=== PATIENT | male | born 1950 | race Caucasian/White ===

== ENCOUNTER 2021-09-10 12:13 | Inpatient (IN) | payer MEDICARE, OTHER ==
--- NOTE | 2021-09-10 12:31 | ED ---
General Adult HPI - General Chief complaint: Shortness of Breath Stated complaint: Difficulty Breathing Source: patient, EMS Mode of arrival: EMS Limitations: no limitations - History of Present Illness Initial comments: Dictation was produced using [employer] dictation software. please excuse any grammatical, word or spelling errors. Chief Complaint: 70-year-old male past medical history of schizophrenia brought in from assisted living facility for fever, shortness of breath and cough History of Present Illness: Is 70-year-old male brought in by EMS from assisted living facility for fever. Patient has history of mental delay. He is a limited historian. Patient currently resident one of the local assisted living facilities. Allegedly patient was brought here for evaluation of cough, dyspnea and fever. Allegedly had high temperatures at the system living facility. EMS was called patient is brought to the ER. EMS states that patient's temperature is 99.7. Patient was not showing any signs of respiratory distress. He had his COVID-19 booster yesterday. Allegedly started having fevers today. Patient hasn't had a cough for approximately one month. Denies any sore throat. Patient has no complaints at this time. Does not feel like he has any fevers. Since that his cough is chronic and nonproductive The ROS documented in this emergency department record has been reviewed and confirmed by me. Those systems with pertinent positive or negative responses have been documented in the HPI. All other systems are other negative and/or n oncontributory. PHYSICAL EXAM: General Impression: Alert and oriented x3, not in acute distress HEENT: Normocephalic atraumatic, extra-ocular movements intact, pupils equal and reactive to light bilaterally, mucous membranes moist. Cardiovascular: Heart regular rate and rhythm Chest: Able to complete full sentences, no retractions, no tachypnea Abdomen: abdomen soft, non-tender, non-distended, no organomegaly Musculoskeletal: Pulses present and equal in all extremities, no peripheral edema Motor: no focal deficits noted Neurological: CN II-XII grossly intact, no focal motor or sensory deficits noted Skin: Intact with no visualized rashes Psych: Normal affect and mood ED course: 70-year-old male presents to the emergency department for fever and alleged respiratory symptoms. Patient's old. At the bedside signs upon arrival shows temperature 102.7, heart rate of 114 and O2 saturation 90% on room air. EKG interpretation: Ventricular rate 99, sinus rhythm,. Interval 165, QS 84, QTC 374. No LA prolongation, no QTC prolongation, no ST or T-wave changes noted. Overall, this EKG is unremarkable Laboratory evaluation obtained. Mild leukocytosis 12.1. Macrocytosis. Mild anemia of 12.6. Coag panel is unremarkable. Metabolic panel is within acceptable limits. Calcium level 8.0. 4 panel viral PCR is negative. Chest x- ray shows left lower lobe pneumonia. Patient prescription 65 score is 1. Patient reevaluated at bedside at 2:15 PM found to be stable medical condition. Patient given dose of ceftriaxone and azithromycin. Ambulatory pulse ox dropped to 90% he did appear to be dyspneic. Given patient's age and comorbidities patient will be admitted to observation for further medical monitoring. Patient be admitted to [facility]. - Related Data Home Medications Medication Instructions Recorded Confirmed ALPRAZolam [Xanax] 1 mg PO BID@08,199909/10/21 09/10/21 Ascorbic Acid [Vitamin C] 1,000 mg PO DAILY@79909/10/21 09/10/21 Cyanocobalamin (Vitamin B-12) 1,000 mcg PO DAILY@79909/10/21 09/10/21 [Vitamin B-12] Ergocalciferol [Vitamin D2 (1250 1,250 mcg PO FR 09/10/21 09/10/21 Mcg = 85084 Iu)] Folic Acid 1 mg PO DAILY@79909/10/21 09/10/21 Ibuprofen [Motrin] 800 mg PO Q6H PRN 09/10/21 09/10/21 Ipratropium [place] 0.06%Nasal 2 spray EA NOSTRIL QID PRN 09/10/21 09/10/21 [Atrovent Nasal 0.06%] LORazepam [Ativan] 1 mg PO TID PRN 09/10/21 09/10/21 Loratadine [Claritin] 10 mg PO DAILY@79909/10/21 09/10/21 Metoprolol Tartrate [Lopressor] 50 mg PO BID@0800,199909/10/21 09/10/21 QUEtiapine [SEROquel] 100 mg PO DAILY@79909/10/21 09/10/21 Rosuvastatin Calcium [Crestor] 5 mg PO HS@199909/10/21 09/10/21 Sertraline [Zoloft] 25 mg PO DAILY@0809/10/21 09/10/21 Sertraline [Zoloft] 50 mg PO DAILY 09/10/21 09/10/21 Zinc 50 mg PO DAILY@0809/10/21 09/10/21 tiaGABine HCL [Tiagabine HCl] 2 mg PO BID@799,199909/10/21 09/10/21 Allergies Allergy/AdvReac Type Severity Reaction Status Date / Time No Known Allergies Allergy Verified 09/10/21 13:47 Review of Systems ROS Statement: Those systems with pertinent positive or pertinent negative responses have been documented in the HPI. ROS Other: All systems not noted in ROS Statement are negative. Past Medical History Past Medical History: Coronary Artery Disease (CAD), COPD, Hypertension Additional Past Medical History / Comment(s): gastritis History of Any Multi-Drug Resistant Organisms: None Reported Past Surgical History: No Surgical Hx Reported Past Psychological History: Bipolar, Schizophrenia Smoking Status: Current every day smoker Past Alcohol Use History: None Reported Past Drug Use History: None Reported General Exam Limitations: no limitations Course Vital Signs 09/10/21 09/10/21 09/10/21 12:15 12:28 13:19 Temperature 102.7 F H Pulse Rate 114 H Respiratory 16 15 Rate Blood Pressure 117/65 O2 Sat by Pulse 92 L 95 Oximetry 09/10/21 09/10/21 13:55 14:00 Temperature 98.3 F Pulse Rate 90 Respiratory 16 Rate Blood Pressure 132/69 O2 Sat by Pulse 95 90 L Oximetry Medical Decision Making - Lab Data Result diagrams: 09/10/21 12:52 09/10/21 12:52 Lab Results 09/10/21 09/10/21 09/10/21 Range/Units 12:37 12:52 12:52 WBC 12.1 H (3.8-10.6) k/uL RBC 3.76 L (4.30-5.90) m/uL Hgb 12.6 L (13.0-17.5) gm/dL Hct 38.5 L (39.0-53.0) % MCV 102.4 H (80.0-100.0) fL MCH 33.6 (25.0-35.0) pg MCHC 32.9 (31.0-37.0) g/dL RDW 12.4 (11.5-15.5) % Plt Count 187 (150-450) k/uL MPV 9.8 Neutrophils % 83 % Lymphocytes % 8 % Monocytes % 7 % Eosinophils % 1 % Basophils % 1 % Neutrophils # 10.0 H (1.3-7.7) k/uL Lymphocytes # 0.9 L (1.0-4.8) k/uL Monocytes # 0.8 (0-1.0) k/uL Eosinophils # 0.1 (0-0.7) k/uL Basophils # 0.1 (0-0.2) k/uL PT 11.2 (9.0-12.0) sec INR 1.0 (<1.2) APTT 20.7 L (22.0-30.0) sec Sodium (137-145) mmol/L Potassium (3.5-5.1) mmol/L Chloride (98-107) mmol/L Carbon Dioxide (22-30) mmol/L Anion Gap mmol/L BUN (9-20) mg/dL Creatinine (0.66-1.25) mg/dL Est GFR (CKD-EPI)AfAm (>60 ml/min/1.73 sqM) Est GFR (CKD-EPI)NonAf (>60 ml/min/1.73 sqM) Glucose (74-99) mg/dL Plasma Lactic Acid Jake (0.7-2.0) mmol/L Calcium (8.4-10.2) mg/dL Influenza Type A (PCR) Not Detected (Not Detectd) Influenza Type B (PCR) Not Detected (Not Detectd) RSV (PCR) Not Detected (Not Detectd) SARS-CoV-2 (PCR) Not Detected (Not Detectd) 09/10/21 09/10/21 Range/Units 12:52 12:52 WBC (3.8-10.6) k/uL RBC (4.30-5.90) m/uL Hgb (13.0-17.5) gm/dL Hct (39.0-53.0) % MCV (80.0-100.0) fL MCH (25.0-35.0) pg MCHC (31.0-37.0) g/dL RDW (11.5-15.5) % Plt Count (150-450) k/uL MPV Neutrophils % % Lymphocytes % % Monocytes % % Eosinophils % % Basophils % % Neutrophils # (1.3-7.7) k/uL Lymphocytes # (1.0-4.8) k/uL Monocytes # (0-1.0) k/uL Eosinophils # (0-0.7) k/uL Basophils # (0-0.2) k/uL PT (9.0-12.0) sec INR (<1.2) APTT (22.0-30.0) sec Sodium 132 L (137-145) mmol/L Potassium 4.7 (3.5-5.1) mmol/L Chloride 103 (98-107) mmol/L Carbon Dioxide 25 (22-30) mmol/L Anion Gap 4 mmol/L BUN 14 (9-20) mg/dL Creatinine 0.77 (0.66-1.25) mg/dL Est GFR (CKD-EPI)AfAm >90 (>60 ml/min/1.73 sqM) Est GFR (CKD-EPI)NonAf >90 (>60 ml/min/1.73 sqM) Glucose 119 H (74-99) mg/dL Plasma Lactic Acid Jake 0.7 (0.7-2.0) mmol/L Calcium 8.0 L (8.4-10.2) mg/dL Influenza Type A (PCR) (Not Detectd) Influenza Type B (PCR) (Not Detectd) RSV (PCR) (Not Detectd) SARS-CoV-2 (PCR) (Not Detectd) Disposition Clinical Impression: Pneumonia Disposition: ADMITTED IP TO THIS HOSP Condition: Fair Referrals: Job Wiseman MD [Primary Care Provider] - 1-2 days Decision Time: 14:47
[2021-09-10] MEDS ORDERED: ACETAMINOPHEN TAB 500 MG TAB PO STA (12:34)
[2021-09-10 13:07] LABS: Basophils # (A) 0.1 k/uL (0-0.2); Basophils % (A) 1 %; Eosinophils # (A) 0.1 k/uL (0-0.7); Eosinophils % (A) 1 %; HCT 38.5 % (39.0-53.0); HGB 12.6 gm/dL (13.0-17.5); Lymphocytes # (A) 0.9 k/uL (1.0-4.8); Lymphocytes % (A) 8 %; MCH 33.6 pg (25.0-35.0); MCHC 32.9 g/dL (31.0-37.0); MCV 102.4 fL (80.0-100.0); Mean Platelet Volume 9.8; Monocytes # (A) 0.8 k/uL (0-1.0); Monocytes % (A) 7 %; Neutrophils % (A) 83 %; Platelet Count 187 k/uL (150-450); RBC 3.76 m/uL (4.30-5.90); RDW 12.4 % (11.5-15.5); WBC 12.1 k/uL (3.8-10.6)
[2021-09-10 13:12] LABS: African American GFR (CKD) >90 (>60 ml/min/1.73 sqM); Anion Gap 4 mmol/L; Blood Urea Nitrogen 14 mg/dL (9-20); Carbon Dioxide 25 mmol/L (22-30); Chloride 103 mmol/L (98-107); Glucose 119 mg/dL (74-99); Non-African American GFR(CKD) >90 (>60 ml/min/1.73 sqM); Potassium 4.7 mmol/L (3.5-5.1); Sodium 132 mmol/L (137-145)
[2021-09-10 13:18] LABS: Prothrombin Time 11.2 sec (9.0-12.0)
[2021-09-10 13:39] LABS: Partial Thromboplastin Time 20.7 sec (22.0-30.0)
--- NOTE | 2021-09-10 14:09 | XR ---
EXAMINATION TYPE: XR chest 2V DATE OF EXAM: 09/10/2021 COMPARISON: NONE HISTORY: Fever TECHNIQUE: Frontal and lateral views of the chest are obtained. FINDINGS: Heterogeneous patchy opacities are seen in the left mid and lower lung zones with possible congested pulmonary vasculature, please correlate clinically. This could be related to left lower lobe pneumoni a. Follow-up to complete resolution in 6-8 weeks is advised. Grossly unremarkable remainder of the lungs. No sizable pleural effusion or definite pneumothorax. No gross cardiomegaly. Degenerative changes of the thoracolumbar junction. IMPRESSION: Suspected left lower lobe pneumonia as described above, for clinical correlation and fol low-up to complete resolution after appropriate treatment in 6-8 weeks.
[2021-09-10] MEDS ORDERED: cefTRIAXone IN SWFI 1,000 MG/10 ML SYRINGE IVP STA (14:10)
[2021-09-10] MEDS ORDERED: AZITHROMYCIN 500 MG in SODIUM CHLORIDE 0.9% 250 ML IVPB STA (14:10)
[2021-09-10] MEDS ORDERED: ACETAMINOPHEN TAB 325 MG TAB PO PRN (14:44)
[2021-09-10] MEDS ORDERED: NALOXONE 0.4 MG/ML 1 ML VIAL IV PRN (14:44)
[2021-09-10] MEDS: SODIUM CHLORIDE 0.9% 1,000 ML IV SCH (14:53)
[2021-09-10] MEDS ORDERED: LORazepam 1 MG TAB PO PRN (18:27)
--- NOTE | 2021-09-10 18:38 | P.HPIM ---
History of Present Illness H&P Date: 09/10/21 History of Presenting Illness: Patient is a very pleasant 70-year-old male with a past medical history of CAD, hypertension, hyperlipidemia, nicotine dependence, bipolar disorder and schizophrenia who resides at [facility]. He presented to the emergency department with a chief complaint of shortness of breath and cough. Patient reports he has had a cough and shortness of breath over the past 3 or 4 days. He reports that he was taken for his COVID-19 booster yesterday and today developed a fever and chills in addition to the previously experienced cough and shortness of breath so he was sent to the emergency department for evaluation. Patient denies having any headache, lightheadedness, dizziness, chest pain, palpitations, nausea, vomiting, abdominal pain, or experiencing any numbness/tingling/weakness in his extremities. Patient underwent full evaluation in the emergency department. He was found to have leukocytosis with WBC count of 12.1 and mild hyponatremia with sodium of 132 labs otherwise showing no significant abnormalities. RSV, Covid PCR, influenza A, and influenza B all negative. EKG completed revealing normal sinus rhythm at 99 bpm with no noted T-wave or ST abnormalities. Chest x-ray revealing left lower lobe pneumonia. Patient started on azithromycin and Rocephin and admitted under our services for observation. Review of systems: Pertinent positives and negatives as discussed in HPI, a complete review of systems was performed and all other systems are negative. Physical exam: Vital signs reviewed and stable. General: Nontoxic, no distress and appears stated age. Derm: Skin warm and dry, normal coloration for ethnicity. Head: Atraumatic, normocephalic and symmetric. Eyes: EOMs intact, no lid lag, and anicteric sclera Mouth: no lip lesions, mucus membranes moist Cardiovascular: regular rate and rhythm with normal S1S2, systolic murmur, positive posterior tibial pulses bilaterally, and cap refill < 2 seconds. Lungs: Respirations even, regular, and unlabored. lungs with diffuse rhonchi bilaterally . No wheezing, and no accessory muscle usage. Abdominal: soft, nontender to palpation, no guarding, no appreciable organomegaly Ext: ROM intact. No gross muscle atrophy, no edema, no contractures Neuro: Speech clear, face symmetrical and CN II-XII grossly intact with no noted focal neuro deficits Psych: Alert and oriented to person, place, time, and situation. Appropriate and pleasant affect. Assessment and Plan of Care: Left lower lobe pneumonia -Oxygenation to be administered and titrated as needed to maintain SPO2 equal to or greater than 92% -Telemetry monitoring. -Monitor Pulse-oximetry -Duonebs as needed for SOB and/or wheezing -Incentive Spirometry -Steroids: Prednisone -Antibiotics: Rocephin and Zithromax -Symptomatic care with Tylenol as needed for mild pain/fever Hypertension -Monitor vital signs and continue daily medication regimen with metoprolol. Hyperlipidemia -Continue daily medication regimen with rosuvastatin Bipolar disorder and schizophrenia -Continue daily medication regimen. The patient is admitted with an anticipated less than 2 midnight stay for evaluation of left lower lobe pneumonia Surrogate decision-maker: Court-appointed guardian CODE STATUS: Full code DVT prophylaxis: Heparin Discussed with: patient and RN Anticipated discharge date: Likely tomorrow morning Anticipated discharge place: Home A total of 40 minutes was spent on the care of this complex patient more than 50% of the time was spent in counseling and care coordination. Past Medical History Past Medical History: Coronary Artery Disease (CAD), COPD, GERD/Reflux, Hyperlipidemia, Hypertension, Seizure Disorder Additional Past Medical History / Comment(s): Mental delay, last seizure greater than 6 yrs ago. History of Any Multi-Drug Resistant Organisms: None Reported Past Surgical History: Unable to Obtain Past Anesthesia/Blood Transfusion Reactions: Unable to Obtain Smoking Status: Current every day smoker - Past Family History Father History Unknown: Yes Mother History Unknown: Yes Medications and Allergies Home Medications Medication Instructions Recorded Confirmed Type ALPRAZolam [Xanax] 1 mg PO BID@799,199909/10/21 09/10/21 History Ascorbic Acid [Vitamin C] 1,000 mg PO DAILY@79909/10/21 09/10/21 History Cyanocobalamin (Vitamin B-12) 1,000 mcg PO DAILY@79909/10/21 09/10/21 History [Vitamin B-12] Ergocalciferol [Vitamin D2 (1250 1,250 mcg PO FR 09/10/21 09/10/21 History Mcg = 63220 Iu)] Folic Acid 1 mg PO DAILY@79909/10/21 09/10/21 History Ibuprofen [Motrin] 800 mg PO Q6H PRN 09/10/21 09/10/21 History Ipratropium [place] 0.06%Nasal 2 spray EA NOSTRIL QID PRN 09/10/21 09/10/21 History [Atrovent Nasal 0.06%] LORazepam [Ativan] 1 mg PO TID PRN 09/10/21 09/10/21 History Loratadine [Claritin] 10 mg PO DAILY@0800 09/10/21 09/10/21 History Metoprolol Tartrate [Lopressor] 50 mg PO BID@799,199909/10/21 09/10/21 History QUEtiapine [SEROquel] 100 mg PO DAILY@79909/10/21 09/10/21 History Rosuvastatin Calcium [Crestor] 5 mg PO HS@199909/10/21 09/10/21 History Sertraline [Zoloft] 25 mg PO DAILY@0809/10/21 09/10/21 History Sertraline [Zoloft] 50 mg PO DAILY 09/10/21 09/10/21 History Zinc 50 mg PO DAILY@0809/10/21 09/10/21 History tiaGABine HCL [Tiagabine HCl] 2 mg PO BID@799,199909/10/21 09/10/21 History Allergies Allergy/AdvReac Type Severity Reaction Status Date / Time No Known Allergies Allergy Verified 09/10/21 13:47 Physical Exam Vitals: Vital Signs Temp Pulse Resp BP Pulse Ox 09/10/21 16:00 78 16 136/87 96 09/10/21 14:00 90 L 09/10/21 13:55 98.3 F 90 16 132/69 95 09/10/21 13:19 95 09/10/21 12:28 15 09/10/21 12:15 102.7 F H 114 H 16 117/65 92 L Intake and Output 09/10/21 09/10/21 09/10/21 06:59 14:59 22:59 Other: Weight 104.326 kg 104.326 kg Results CBC & Chem 7: 09/10/21 12:52 09/10/21 12:52 Labs: Abnormal Lab Results - Last 24 Hours (Table) 09/10/21 09/10/21 09/10/21 Range/Units 12:52 12:52 12:52 WBC 12.1 H (3.8-10.6) k/uL RBC 3.76 L (4.30-5.90) m/uL Hgb 12.6 L (13.0-17.5) gm/dL Hct 38.5 L (39.0-53.0) % MCV 102.4 H (80.0-100.0) fL Neutrophils # 10.0 H (1.3-7.7) k/uL Lymphocytes # 0.9 L (1.0-4.8) k/uL APTT 20.7 L (22.0-30.0) sec Sodium 132 L (137-145) mmol/L Glucose 119 H (74-99) mg/dL Calcium 8.0 L (8.4-10.2) mg/dL Thrombosis Risk Factor Assmnt - Choose All That Apply Any of the Below Risk Factors Present?: Yes Each Factor Represents 1 point: Abnormal pulmonary function (COPD), Obesity (BMI >25), Serious lung disease incl. pneumonia (< 1month) Other Risk Factors: Yes Each Risk Factor Represents 2 Points: Age 61-74 years Other congenital or acquired thrombophilia - If yes, enter type in comment: No Thrombosis Risk Factor Assessment Total Risk Factor Score: 5 Thrombosis Risk Factor Assessment Level: High Risk
[2021-09-10] MEDS: predniSONE 50 MG TAB PO SCH (20:12)
[2021-09-10] MEDS: ATORVASTATIN 10 MG TAB PO SCH (20:12)
[2021-09-10] MEDS: ALPRAZolam 1 MG TAB PO SCH (20:12)
[2021-09-10] MEDS: METOPROLOL TARTRATE 50 MG TAB PO SCH (20:12)
[2021-09-10] MEDS: GABITRIL 4 MG PO SCH (20:14)
[2021-09-11] MEDS: HEPARIN SODIUM,PORCINE/PF 5,000 UNIT/0.5 ML SYRINGE SQ SCH ×4 (01:06→23:35)
[2021-09-11] MEDS: ZINC SULFATE 220 MG CAP PO SCH (07:44)
[2021-09-11] MEDS: predniSONE 50 MG TAB PO SCH (07:44)
[2021-09-11] MEDS: ASCORBIC ACID 500 MG TAB PO SCH (07:44)
[2021-09-11] MEDS: CYANOCOBALAMIN 500 MCG TAB PO SCH (07:44)
[2021-09-11] MEDS: ALPRAZolam 1 MG TAB PO SCH ×2 (07:44→19:09)
[2021-09-11] MEDS: SERTRALINE 50 MG TAB PO SCH (07:45)
[2021-09-11] MEDS: METOPROLOL TARTRATE 50 MG TAB PO SCH ×2 (07:45→19:09)
[2021-09-11] MEDS: FOLIC ACID 1 MG TAB PO SCH (07:45)
[2021-09-11] MEDS: AZITHROMYCIN 500 MG TAB PO SCH (07:45)
[2021-09-11] MEDS: QUEtiapine 100 MG TAB PO SCH (07:46)
[2021-09-11] MEDS: GABITRIL 4 MG PO SCH ×2 (07:51→19:05)
[2021-09-11] MEDS: SERTRALINE 25 MG TAB PO SCH (11:28)
--- NOTE | 2021-09-11 12:09 | P.PN ---
Subjective Progress Note Date: 09/11/21 History of Presenting Illness: Patient is a very pleasant 70-year-old male with a past medical history of CAD, hypertension, hyperlipidemia, nicotine dependence, bipolar disorder and sc hizophrenia who resides at [facility]. He presented to the emergency department with a chief complaint of shortness of breath and cough. Patient reports he has had a cough and shortness of breath over the past 3 or 4 days. He reports that he was taken for his COVID-19 booster yesterday and today developed a fever and chills in addition to the previously experienced cough and shortness of breath so he was sent to the emergency department for evaluation. Patient denies having any headache, lightheadedness, dizziness, chest pain, palpitations, nausea, vomiting, abdominal pain, or experiencing any numbness/tingling/weakness in his extremities. Patient underwent full dano luation in the emergency department. He was found to have leukocytosis with WBC count of 12.1 and mild hyponatremia with sodium of 132 labs otherwise showing no significant abnormalities. RSV, Covid PCR, influenza A, and influenza B all negative. EKG completed revealing normal sinus rhythm at 99 bpm with no noted T-wave or ST abnormalities. Chest x-ray revealing left lower lobe pneumonia. Patient started on azithromycin and Rocephin and admitted under our services for observation. Patient monitored overnight and continued to have increased oxygen needs. Patient requiring 4 L O2 via nasal cannula to maintain SpO2 93-95%. Patient 88% on room air at rest upon evaluation this morning. Patient transitioned from observation status to inpatient at this time. Physical exam: Patient seen and fully evaluated at bedside this morning. Patient reports continued shortness of breath and cough worsens with exertion. He denies having any chills, diaphoresis, chest pain, palpitations, nausea, or vomiting. Patient to continue with IV Rocephin and oral Zithromax at this time. Secondary to persistent increased oxygenation needs patient has been requiring 4 L O2 via nasal cannula to maintain SpO2 93-95%. Upon examination this morning patient decreased down to 88% on room air. Patient to continue with oral prednisone 50 mg daily. Vital signs reviewed and stable. General: Nontoxic, no distress and appears stated age. Derm: Skin warm and dry, normal coloration for ethnicity. Head: Atraumatic, normocephalic and symmetric. Eyes: EOMs intact, no lid lag, and anicteric sclera Mouth: no lip lesions, mucus membranes moist Cardiovascular: regular rate and rhythm with normal S1S2, systolic murmur, positive posterior tibial pulses bilaterally, and cap refill < 2 seconds. Lungs: Respirations even, regular, and unlabored. lungs with diffuse rhonchi bilaterally and diminished at bases . No wheezing, and no accessory muscle usage. Abdominal: soft, nontender to palpation, no guarding, no appreciable organomegaly Ext: ROM intact. No gross muscle atrophy, no edema, no contractures Neuro: Speech clear, face symmetrical and CN II-XII grossly intact with no noted focal neuro deficits Psych: Alert and oriented to person, place, time, and situation. Appropriate and pleasant affect. Assessment and Plan of Care: Left lower lobe pneumonia Acute hypoxic respiratory failure secondary to above -Oxygenation to be administered and titrated as needed to maintain SPO2 equal to or greater than 92% -Telemetry monitoring. -Monitor Pulse-oximetry -Duonebs as needed for SOB and/or wheezing -Incentive Spirometry -Steroids: Prednisone -Antibiotics: Rocephin and Zithromax -Symptomatic care with Tylenol as needed for mild pain/fever Hypertension -Monitor vital signs and continue daily medication regimen with metoprolol. Hyperlipidemia -Continue daily medication regimen with rosuvastatin Bipolar disorder and schizophrenia -Continue daily medication regimen. Surrogate decision-maker: Court-appointed guardian CODE STATUS: Full code DVT prophylaxis: Heparin Discussed with: patient and RN Anticipated discharge date: Likely tomorrow morning Anticipated discharge place: Home A total of 40 minutes was spent on the care of this complex patient more than 50% of the time was spent in counseling and care coordination. Objective - Vital Signs Vital signs: Vital Signs Temp 98.4 F 09/11/21 07:00 Pulse 82 09/11/21 08:00 Resp 16 09/11/21 07:00 BP 137/75 09/11/21 07:00 Pulse Ox 95 09/11/21 07:00 Intake & Output 09/10/21 09/11/21 09/11/21 18:59 06:59 18:59 Intake Total 358 Balance 358 Weight 104.326 kg Intake: Oral 358 Other: # Voids 1 - Labs CBC & Chem 7: 09/10/21 12:52 09/10/21 12:52 Labs: Abnormal Lab Results - Last 24 Hours (Table) 09/10/21 09/10/21 09/10/21 Range/Units 12:52 12:52 12:52 WBC 12.1 H (3.8-10.6) k/uL RBC 3.76 L (4.30-5.90) m/uL Hgb 12.6 L (13.0-17.5) gm/dL Hct 38.5 L (39.0-53.0) % MCV 102.4 H (80.0-100.0) fL Neutrophils # 10.0 H (1.3-7.7) k/uL Lymphocytes # 0.9 L (1.0-4.8) k/uL APTT 20.7 L (22.0-30.0) sec Sodium 132 L (137-145) mmol/L Glucose 119 H (74-99) mg/dL Calcium 8.0 L (8.4-10.2) mg/dL
[2021-09-11] MEDS: SODIUM CHLORIDE 0.9% 1,000 ML IV SCH (16:36)
[2021-09-11] MEDS: ATORVASTATIN 10 MG TAB PO SCH (19:09)
[2021-09-12] MEDS ORDERED: ERGOCALCIFEROL 1,250 MCG (50,000 IU) CAPSULE PO SCH (09:00)
[2021-09-12] MEDS: ZINC SULFATE 220 MG CAP PO SCH (09:08)
[2021-09-12] MEDS: ALPRAZolam 1 MG TAB PO SCH ×2 (09:08→19:25)
[2021-09-12] MEDS: METOPROLOL TARTRATE 50 MG TAB PO SCH ×2 (09:08→19:25)
[2021-09-12] MEDS: SERTRALINE 50 MG TAB PO SCH (09:08)
[2021-09-12] MEDS: AZITHROMYCIN 500 MG TAB PO SCH (09:08)
[2021-09-12] MEDS: SERTRALINE 25 MG TAB PO SCH (09:09)
[2021-09-12] MEDS: ASCORBIC ACID 500 MG TAB PO SCH (09:09)
[2021-09-12] MEDS: predniSONE 50 MG TAB PO SCH (09:09)
[2021-09-12] MEDS: CYANOCOBALAMIN 500 MCG TAB PO SCH (09:09)
[2021-09-12] MEDS: QUEtiapine 100 MG TAB PO SCH (09:09)
[2021-09-12] MEDS: FOLIC ACID 1 MG TAB PO SCH (09:09)
[2021-09-12] MEDS: HEPARIN SODIUM,PORCINE/PF 5,000 UNIT/0.5 ML SYRINGE SQ SCH ×3 (09:17→23:50)
[2021-09-12] MEDS: GABITRIL 4 MG PO SCH ×2 (09:17→19:22)
[2021-09-12 09:20] LABS: HCT 38.4 % (39.6-50.0); HGB 12.5 g/dL (13.0-17.0); MCH 33.3 pg (27.0-32.0); MCHC 32.6 g/dL (32.0-37.0); MCV 102.4 fL (80.0-97.0); Mean Platelet Volume 11.8 fL (9.5-12.2); NRBC Per 100 WBC 0 /100 WBCS (0.0-0.0); Platelet Count 208 X 10*3/uL (140-440); RBC 3.75 X 10*6/uL (4.40-5.60); RDW 12.8 % (11.5-14.5); WBC 12.78 X 10*3/uL (4.50-10.00)
[2021-09-12 09:33] LABS: African American GFR (CKD) 112.4 (60.0-200.0); Albumin 3.5 g/dL (3.8-4.9); Albumin/Globulin Ratio 1.25 (1.60-3.17); Anion Gap 7.2 mmol/L (10.00-18.00); BUN/Creat Ratio 21.86 Ratio (12.00-20.00); Blood Urea Nitrogen 15.3 mg/dL (9.0-27.0); Calcium 8.8 mg/dL (8.7-10.3); Carbon Dioxide 27.8 mmol/L (20.0-27.5); Globulin 2.8 g/dL (1.6-3.3); Magnesium 2.4 mg/dL (1.5-2.4); Potassium 4.7 mmol/L (3.5-5.5); Total Bilirubin 0.3 mg/dL (0.30-1.20); Total Protein 6.3 g/dL (6.2-8.2)
--- NOTE | 2021-09-12 11:26 | CDI ---
Documentation Clarification Form Date: 09/12/2021 11:17:25 AM From: Dhara HurtadoSuarezJEMIMA peters, CCDS Admit Date: 09/11/2021 12:06:00 PM Patient Name: Prudencio Cancino Visit Number: [id number] Discharge Date: ATTENTION: The Clinical Documentation Specialists (CDI) and [facility] Coding Staff appreciate your assistance in clarifying documentation. Please respond to the clarification below the line at the bottom and electronically sign. The CDI & [facility] Coding staff will review the response and follow-up if needed. Please note: Queries are made part of the Legal Health Record. If you have any questions, please contact the author of this message via ITS. Dr. Noemí Renteria: The patient presented with the following clinical indicators: Fever, SOB, chills, cough, received COVID booster the day before coming to the ED. Additional clarification regarding the etiology/cause of the clinical indicators is requested. History/Risk Factors per the 09/10 H/P: Lives in Assisted Living Facility, Hypertension, Hyperlipidemia, CAD, Gastritis, Bipolar disorder, Schizophrenia Smoker. Clinical Indicators: Presented to the ED on 09/10 via EMS from [facility] with SOB, Fever, Cough. Admit with Pneumonia. Per the 09/10 H/P & 09/11 Progress Note Impression: Pneumonia, Acute Hypoxic Respiratory Failure 09/10 VS: T 102.7, P 114, R 16, BP 117/65, PO 92 RA - 2Lnc 09/10: LAB: WBC 12.1, RBC 3.76, Hgb 12.6, hct 38.5, Neutrophils 10.0, Lymph 0.9; APTT 20.7; Na 132, Glucose 119, Lactic Acid 0.7, Calcium 8.0 Influenza Type A/B: negative RSV: negative COVID-19: negative 09/10 RAD: CXR: Suspected LLL Pneumonia. Treatment 09/10: Incentive spirometry, Blood Cultures, O2, IV Azithromycin, IV Rocephin In your professional opinion, please clarify if these findings signify one of the following conditions: [ ] Sepsis POA [ ] Sepsis, Not POA [ ] Severe Sepsis with organ failure [ ] Other, please specify [ ] Unable to determine (Template Last Reviewed: June 2020) Sepsis POA MTDD
[2021-09-12] MEDS ORDERED: IPRATROPIUM-ALBUTEROL 3 ML NEB INHALATION PRN (14:48)
--- NOTE | 2021-09-12 14:52 | P.PN ---
Subjective Progress Note Date: 09/12/21 Principal diagnosis: sob Patient continues to have shortness of breath. He is currently requiring low- flow nasal cannula. He has a mild cough. No fevers or chills. Objective - Vital Signs Vital signs: Vital Signs Temp 97.5 F L 09/12/21 08:00 Pulse 68 09/12/21 08:00 Resp 20 09/12/21 08:00 BP 152/81 09/12/21 08:00 Pulse Ox 97 09/12/21 08:00 Intake & Output 09/11/21 09/12/21 09/12/21 18:59 06:59 18:59 Intake Total 698 240 Balance 698 240 Intake: Oral 698 240 Other: Voiding Method Toilet Toilet # Voids 1 1 - Exam General: Nontoxic, no distress and appears stated age. Derm: Skin warm and dry, normal coloration for ethnicity. Head: Atraumatic, normocephalic and symmetric. Eyes: EOMs intact, no lid lag, and anicteric sclera Mouth: no lip lesions, mucus membranes moist Cardiovascular: regular rate and rhythm with normal S1S2, systolic murmur, positive posterior tibial pulses bilaterally, and cap refill < 2 seconds. Lungs: Respirations even, regular, and unlabored. lungs with diffuse rhonchi bilaterally and diminished at bases . No wheezing, and no accessory muscle usage. Abdominal: soft, nontender to palpation, no guarding, no appreciable organomegaly Ext: ROM intact. No gross muscle atrophy, no edema, no contractures Neuro: Speech clear, face symmetrical and CN II-XII grossly intact with no noted focal neuro deficits Psych: Alert and oriented to person, place, time, and situation. Appropriate and pleasant affect. - Labs CBC & Chem 7: 09/12/21 06:38 09/12/21 06:38 Labs: Abnormal Lab Results - Last 24 Hours (Table) 09/12/21 09/12/21 Range/Units 06:38 06:38 WBC 12.78 H (4.50-10.00) X 10*3/uL RBC 3.75 L (4.40-5.60) X 10*6/uL Hgb 12.5 L (13.0-17.0) g/dL Hct 38.4 L (39.6-50.0) % MCV 102.4 H (80.0-97.0) fL MCH 33.3 H (27.0-32.0) pg Carbon Dioxide 27.8 H (20.0-27.5) mmol/L Anion Gap 7.20 L (10.00-18.00) mmol/L BUN/Creatinine Ratio 21.86 H (12.00-20.00) Ratio AST 219 H (14-35) U/L ALT 269 H (10-49) U/L Albumin 3.5 L (3.8-4.9) g/dL Albumin/Globulin Ratio 1.25 L (1.60-3.17) g/dL Microbiology - Last 24 Hours (Table) 09/10/21 14:00 Blood Culture - Preliminary Blood No Growth after 24 hours 09/10/21 14:15 Blood Culture - Preliminary Blood No Growth after 24 hours Assessment and Plan Plan: Left lower lobe pneumonia Acute hypoxic respiratory failure secondary to above -Oxygenation to be administered and titrated as needed to maintain SPO2 equal to or greater than 92% -Telemetry monitoring. -Monitor Pulse-oximetry -Duonebs scheduled and as needed for SOB and/or wheezing -Incentive Spirometry -Steroids: Prednisone -Antibiotics: Rocephin and Zithromax -Symptomatic care with Tylenol as needed for mild pain/fever Hypertension -Monitor vital signs and continue daily medication regimen with metoprolol. Hyperlipidemia -Continue daily medication regimen with rosuvastatin Bipolar disorder and schizophrenia -Continue daily medication regimen. General weakness -PT Surrogate decision-maker: Court-appointed guardian CODE STATUS: Full code DVT prophylaxis: Heparin Discussed with: patient and RN Anticipated discharge date: 2-[address]: Home A total of 40 minutes was spent on the care of this complex patient more than 50% of the time was spent in counseling and care coordination.
[2021-09-12] MEDS: IPRATROPIUM-ALBUTEROL 3 ML NEB INHALATION SCH ×2 (15:45→19:13)
[2021-09-12] MEDS: SODIUM CHLORIDE 0.9% 1,000 ML IV SCH (18:30)
[2021-09-12] MEDS: ATORVASTATIN 10 MG TAB PO SCH (19:25)
[2021-09-13] MEDS: IPRATROPIUM-ALBUTEROL 3 ML NEB INHALATION SCH ×4 (08:24→19:05)
[2021-09-13] MEDS: GABITRIL 4 MG PO SCH ×2 (08:48→19:18)
[2021-09-13] MEDS: ALPRAZolam 1 MG TAB PO SCH ×2 (08:51→19:18)
[2021-09-13] MEDS: HEPARIN SODIUM,PORCINE/PF 5,000 UNIT/0.5 ML SYRINGE SQ SCH ×3 (08:51→23:15)
[2021-09-13] MEDS: SERTRALINE 25 MG TAB PO SCH (08:52)
[2021-09-13] MEDS: ZINC SULFATE 220 MG CAP PO SCH (08:52)
[2021-09-13] MEDS: AZITHROMYCIN 500 MG TAB PO SCH (08:52)
[2021-09-13] MEDS: predniSONE 50 MG TAB PO SCH (08:52)
[2021-09-13] MEDS: CYANOCOBALAMIN 500 MCG TAB PO SCH (08:52)
[2021-09-13] MEDS: ASCORBIC ACID 500 MG TAB PO SCH (08:52)
[2021-09-13] MEDS: SERTRALINE 50 MG TAB PO SCH (08:52)
[2021-09-13] MEDS: METOPROLOL TARTRATE 50 MG TAB PO SCH ×2 (08:52→19:17)
[2021-09-13] MEDS: QUEtiapine 100 MG TAB PO SCH (08:52)
[2021-09-13] MEDS: FOLIC ACID 1 MG TAB PO SCH (08:52)
--- NOTE | 2021-09-13 11:40 | P.PN ---
Subjective Progress Note Date: 09/13/21 Principal diagnosis: sob Patient feeling better but still with sob and tightness. Still with cough. No fevers. No chills. Objective - Vital Signs Vital signs: Vital Signs Temp 97.7 F 09/13/21 08:00 Pulse 79 09/13/21 08:35 Resp 18 09/13/21 08:00 BP 165/79 09/13/21 08:00 Pulse Ox 96 09/13/21 08:25 Intake & Output 09/12/21 09/13/21 09/13/21 18:59 06:59 18:59 Intake Total 714 Balance 714 Intake: Oral 714 Other: Voiding Method Toilet Toilet Toilet # Voids 2 1 # Bowel Movements 1 - Exam General: Nontoxic, no distress and appears stated age. Derm: Skin warm and dry, normal coloration for ethnicity. Head: Atraumatic, normocephalic and symmetric. Eyes: EOMs intact, no lid lag, and anicteric sclera Mouth: no lip lesions, mucus membranes moist Cardiovascular: regular rate and rhythm with normal S1S2, systolic murmur, positive posterior tibial pulses bilaterally, and cap refill < 2 seconds. Lungs: Respirations even, regular, and unlabored. lungs with diffuse rhonchi bilaterally and diminished at bases . No wheezing, and no accessory muscle usage. Abdominal: soft, nontender to palpation, no guarding, no appreciable organomegaly Ext: ROM intact. No gross muscle atrophy, no edema, no contractures Neuro: Speech clear, face symmetrical and CN II-XII grossly intact with no noted focal neuro deficits Psych: Alert and oriented to person, place, time, and situation. Appropriate and pleasant affect. - Labs CBC & Chem 7: 09/12/21 06:38 09/12/21 06:38 Labs: Microbiology - Last 24 Hours (Table) 09/10/21 14:00 Blood Culture - Preliminary Blood No Growth after 48 hours 09/10/21 14:15 Blood Culture - Preliminary Blood No Growth after 48 hours Assessment and Plan Plan: Left lower lobe pneumonia Acute hypoxic respiratory failure secondary to above -Oxygenation to be administered and titrated as needed to maintain SPO2 equal to or greater than 92% -Telemetry monitoring. -Monitor Pulse-oximetry -Duonebs scheduled and as needed for SOB and/or wheezing -Incentive Spirometry -Steroids: Prednisone -Antibiotics: Rocephin and Zithromax -Symptomatic care with Tylenol as needed for mild pain/fever Hypertension -Monitor vital signs and continue daily medication regimen with metoprolol. Hyperlipidemia -Continue daily medication regimen with rosuvastatin Bipolar disorder and schizophrenia -Continue daily medication regimen. General weakness -PT Surrogate decision-maker: Court-appointed guardian CODE STATUS: Full code DVT prophylaxis: Heparin Discussed with: patient and RN Anticipated discharge date: 1-[address]: Home A total of 40 minutes was spent on the care of this complex patient more than 50% of the time was spent in counseling and care coordination.
[2021-09-13 11:44] LABS: Basophils # (A) 0.05 X 10*3/uL (0.00-0.10); Basophils % (A) 0.5 %; Eosinophils # (A) 0.02 X 10*3/uL (0.04-0.35); Eosinophils % (A) 0.2 %; HCT 39.2 % (39.6-50.0); HGB 12.4 g/dL (13.0-17.0); Immature Grans, Automated 1.3 %; Lymphocytes # (A) 2.08 X 10*3/uL (0.90-5.00); MCH 32.5 pg (27.0-32.0); MCHC 31.6 g/dL (32.0-37.0); MCV 102.9 fL (80.0-97.0); Mean Platelet Volume 11.9 fL (9.5-12.2); Monocytes # (A) 0.76 X 10*3/uL (0.20-1.00); Monocytes % (A) 7.3 %; NRBC Per 100 WBC 0 /100 WBCS (0.0-0.0); Neutrophils # (A) 7.37 X 10*3/uL (1.80-7.70); Neutrophils % (A) 70.7 %; Platelet Count 246 X 10*3/uL (140-440); RBC 3.81 X 10*6/uL (4.40-5.60); RDW 12.9 % (11.5-14.5); WBC 10.42 X 10*3/uL (4.50-10.00)
[2021-09-13 11:51] LABS: African American GFR (CKD) 112.4 (60.0-200.0); Albumin 3.5 g/dL (3.8-4.9); Albumin/Globulin Ratio 1.25 (1.60-3.17); Anion Gap 9.4 mmol/L (10.00-18.00); Blood Urea Nitrogen 14.7 mg/dL (9.0-27.0); Calcium 8.6 mg/dL (8.7-10.3); Carbon Dioxide 27.6 mmol/L (20.0-27.5); Globulin 2.8 g/dL (1.6-3.3); Potassium 4.5 mmol/L (3.5-5.5); Total Bilirubin 0.3 mg/dL (0.30-1.20); Total Protein 6.3 g/dL (6.2-8.2)
[2021-09-13 14:22] VITALS: RESP 16
[2021-09-13] MEDS: SODIUM CHLORIDE 0.9% 1,000 ML IV SCH (18:54)
[2021-09-13] MEDS: ATORVASTATIN 10 MG TAB PO SCH (19:18)
[2021-09-14] MEDS: HEPARIN SODIUM,PORCINE/PF 5,000 UNIT/0.5 ML SYRINGE SQ SCH (07:25)
[2021-09-14] MEDS: ZINC SULFATE 220 MG CAP PO SCH (07:26)
[2021-09-14] MEDS: predniSONE 50 MG TAB PO SCH (07:26)
[2021-09-14] MEDS: ALPRAZolam 1 MG TAB PO SCH (07:26)
[2021-09-14] MEDS: QUEtiapine 100 MG TAB PO SCH (07:26)
[2021-09-14] MEDS: CYANOCOBALAMIN 500 MCG TAB PO SCH (07:26)
[2021-09-14] MEDS: ASCORBIC ACID 500 MG TAB PO SCH (07:26)
[2021-09-14] MEDS: SERTRALINE 25 MG TAB PO SCH (07:26)
[2021-09-14] MEDS: FOLIC ACID 1 MG TAB PO SCH (07:26)
[2021-09-14] MEDS: METOPROLOL TARTRATE 50 MG TAB PO SCH (07:26)
[2021-09-14] MEDS: SERTRALINE 50 MG TAB PO SCH (07:26)
[2021-09-14] MEDS: GABITRIL 4 MG PO SCH (07:27)
[2021-09-14] MEDS: IPRATROPIUM-ALBUTEROL 3 ML NEB INHALATION SCH ×3 (08:20→15:06)
--- NOTE | 2021-09-14 13:54 | P.DS ---
Providers Date of admission: 09/11/21 12:06 Expected date of discharge: 09/14/21 Attending physician: Michelle Gama DO Primary care physician: Job [facility] Course: 70-year-old male with a past medical history of CAD, hypertension, hyperlipidemia, nicotine dependence, bipolar disorder and schizophrenia who resides at [facility]. He presented to the emergency department with a chief complaint of shortness of breath and cough. Patient reports he has had a cough and shortness of breath over the past 3 or 4 days. He reports that he was taken for his COVID-19 booster the day prior to admission and then developed a fever and chills in addition to the previously experienced cough and shortness of breath so he was sent to the emergency department for evaluation. Patient denies having any headache, lightheadedness, dizziness, chest pain, palpitations, nausea, vomiting, abdominal pain, or experiencing any numbness/tingling/weakness in his extremities. Patient underwent full evaluation in the emergency department. He was found to have leukocytosis with WBC count of 12.1 and mild hyponatremia with sodium of 132 labs otherwise showing no significant abnormalities. RSV, Covid PCR, influenza A, and influenza B all negative. EKG completed revealing normal sinus rhythm at 99 bpm with no noted T-wave or ST abnormalities. Chest x-ray revealing left lower lobe pneumonia. Patient started on azithromycin and Rocephin and admitted under our services. On exam he was have significant wheezing and rhonchi and due to that he was started on steroids and nebs tx. He was initially requiring O2 supplements low flow. On the day on discharge he was on RA. He is currently feeling very well. Much better, will be sent back to the detention. He will be prescribed omnicef on discharge. Time for discharge 36 min Patient Condition at Discharge: Fair Plan - Discharge Summary Discharge Rx Participant: No New Discharge Prescriptions: New methylPREDNISolone Dose Pack [Medrol Dose Pack] 4 mg PO DIRECTED #1 packet Cefdinir [Omnicef] 300 mg PO Q12HR 3 Days #6 capsule Continue Ergocalciferol [Vitamin D2 (1250 Mcg = 73458 Iu)] 1,250 mcg PO FR Cyanocobalamin (Vitamin B-12) [Vitamin B-12] 1,000 mcg PO DAILY@0800 Ascorbic Acid [Vitamin C] 1,000 mg PO DAILY@0800 Metoprolol Tartrate [Lopressor] 50 mg PO BID@ Sertraline [Zoloft] 25 mg PO DAILY@08 LORazepam [Ativan] 1 mg PO TID PRN PRN Reason: Anxiety Ibuprofen [Motrin] 800 mg PO Q6H PRN PRN Reason: Pain Folic Acid 1 mg PO DAILY@0800 ALPRAZolam [Xanax] 1 mg PO BID@799,1999 Zinc 50 mg PO DAILY@08 tiaGABine HCL [Tiagabine HCl] 2 mg PO BID@799,1999 Sertraline [Zoloft] 50 mg PO DAILY Rosuvastatin Calcium [Crestor] 5 mg PO HS@1999 QUEtiapine [SEROquel] 100 mg PO DAILY@08 Loratadine [Claritin] 10 mg PO DAILY@08 Ipratropium [place] 0.06%Nasal [Atrovent Nasal 0.06%] 2 spray EA NOSTRIL QID PRN PRN Reason: Nasal Congestion Discharge Medication List ALPRAZolam [Xanax] 1 mg PO BID@799,199909/10/21 [History] Ascorbic Acid [Vitamin C] 1,000 mg PO DAILY@79909/10/21 [History] Cyanocobalamin (Vitamin B-12) [Vitamin B-12] 1,000 mcg PO DAILY@79909/10/21 [History] Ergocalciferol [Vitamin D2 (1250 Mcg = 78962 Iu)] 1,250 mcg PO FR 09/10/21 [History] Folic Acid 1 mg PO DAILY@79909/10/21 [History] Ibuprofen [Motrin] 800 mg PO Q6H PRN 09/10/21 [History] Ipratropium [place] 0.06%Nasal [Atrovent Nasal 0.06%] 2 spray EA NOSTRIL QID PRN 09/10/21 [History] LORazepam [Ativan] 1 mg PO TID PRN 09/10/21 [History] Loratadine [Claritin] 10 mg PO DAILY@0809/10/21 [History] Metoprolol Tartrate [Lopressor] 50 mg PO BID@09/10/21 [History] QUEtiapine [SEROquel] 100 mg PO DAILY@0809/10/21 [History] Rosuvastatin Calcium [Crestor] 5 mg PO HS@199909/10/21 [History] Sertraline [Zoloft] 25 mg PO DAILY@0809/10/21 [History] Sertraline [Zoloft] 50 mg PO DAILY 09/10/21 [History] Zinc 50 mg PO DAILY@0809/10/21 [History] tiaGABine HCL [Tiagabine HCl] 2 mg PO BID@09/10/21 [History] Cefdinir [Omnicef] 300 mg PO Q12HR 3 Days #6 capsule 09/14/21 [Rx] methylPREDNISolone Dose Pack [Medrol Dose Pack] 4 mg PO DIRECTED #1 packet 09/14/21 [Rx] Follow up Appointment(s)/Referral(s): Job Wiseman MD [Primary Care Provider] - 1-2 days Activity/Diet/Wound Care/Special Instructions: [facility] phone number: [phone]
[2021-09-14 15:22] VITALS: BP 127/65; PULSE 74; TEMP 98.4
== END 2021-09-14 18:05 | disposition home or self-care (01) | DRG 871 ==
LOC: EC 12:13 → 6NMEDSUR 14:44 → OBSVTOIN 09-11 12:06 → EEVIPCON 09-11 12:06
PROVIDERS: ADMIT Internal Medicine; ATTEND Internal Medicine
DX: A41.9 Sepsis, unspecified organism (principal); J18.9 Pneumonia, unspecified organism; J96.01 Acute respiratory failure with hypoxia; J44.0 Chronic obstructive pulmonary disease with (acute) lower respiratory infection; E87.1 Hypo-osmolality and hyponatremia; I25.10 Atherosclerotic heart disease of native coronary artery without angina pectoris; F20.9 Schizophrenia, unspecified; Z20.822 Contact with and (suspected) exposure to COVID-19; F31.9 Bipolar disorder, unspecified; G40.909 Epilepsy, unspecified, not intractable, without status epilepticus; K29.70 Gastritis, unspecified, without bleeding; I10 Essential (primary) hypertension; E78.5 Hyperlipidemia, unspecified; K21.9 Gastro-esophageal reflux disease without esophagitis; F17.210 Nicotine dependence, cigarettes, uncomplicated; Z79.899 Other long term (current) drug therapy; Z87.01 Personal history of pneumonia (recurrent); D64.9 Anemia, unspecified; D75.89 Other specified diseases of blood and blood-forming organs
CPT/HCPCS: 36415; 71046; 80048; 80053; 81001; 83605; 83735; 85025; 85027; 85610; 85730; 87040; 87086; 87636; 93005; 94640; 94760; 96365; 96366; 96375; 99285

== ENCOUNTER 2022-08-18 06:17 | Emergency (ER) | payer MEDICARE, OTHER ==
[2022-08-18] MEDS ORDERED: ACETAMINOPHEN TAB 500 MG TAB PO STA (06:31)
--- NOTE | 2022-08-18 06:45 | ED ---
SOB HPI - General Stated Complaint: SOB Time Seen by Provider: 08/18/22 06:22 Source: patient, EMS, RN notes reviewed Mode of arrival: EMS Limitations: no limitations - History of Present Illness Initial Comments: This a 71-year-old male presents emergency Department with chief complaint of shortness of breath. Patient states started having increased depression breath, cough congestion since . Per report of EMS patient's will see a yu he has not been wearing them. Patient states is not having lung disease denies COPD or asthma is unclear why he is on oxygen. Patient reports feeling hot, cold. Patient is moving productive cough. No GI symptoms including nausea, vomiting diarrhea constipation. Patient did have a pulse ox of 83% upon arrival. Patient denies any leg pain, leg swelling denies a history of CHF. - Related Data Home Medications Medication Instructions Recorded Confirmed ALPRAZolam [Xanax] 1 mg PO BID@08,199909/10/21 09/10/21 Ascorbic Acid [Vitamin C] 1,000 mg PO DAILY@79909/10/21 09/10/21 Cyanocobalamin (Vitamin B-12) 1,000 mcg PO DAILY@79909/10/21 09/10/21 [Vitamin B-12] Ergocalciferol [Vitamin D2 (1250 1,250 mcg PO FR 09/10/21 09/10/21 Mcg = 26443 Iu)] Folic Acid 1 mg PO DAILY@79909/10/21 09/10/21 Ibuprofen [Motrin] 800 mg PO Q6H PRN 09/10/21 09/10/21 Ipratropium [place] 0.06%Nasal 2 spray EA NOSTRIL QID PRN 09/10/21 09/10/21 [Atrovent Nasal 0.06%] LORazepam [Ativan] 1 mg PO TID PRN 09/10/21 09/10/21 Loratadine [Claritin] 10 mg PO DAILY@79909/10/21 09/10/21 Metoprolol Tartrate [Lopressor] 50 mg PO BID@799,199909/10/21 09/10/21 QUEtiapine [SEROquel] 100 mg PO DAILY@79909/10/21 09/10/21 Rosuvastatin Calcium [Crestor] 5 mg PO HS@199909/10/21 09/10/21 Sertraline [Zoloft] 25 mg PO DAILY@0800 09/10/21 09/10/21 Sertraline [Zoloft] 50 mg PO DAILY 09/10/21 09/10/21 Zinc 50 mg PO DAILY@0800 09/10/21 09/10/21 tiaGABine HCL [Tiagabine HCl] 2 mg PO BID@0800,2000 09/10/21 09/10/21 Previous Rx's Medication Instructions Recorded Cefdinir [Omnicef] 300 mg PO Q12HR 3 Days #6 capsule 09/14/21 methylPREDNISolone Dose Pack 4 mg PO DIRECTED #1 packet 09/14/21 [Medrol Dose Pack] Allergies Allergy/AdvReac Type Severity Reaction Status Date / Time No Known Allergies Allergy Verified 09/10/21 13:47 Review of Systems ROS Statement: Those systems with pertinent positive or pertinent negative responses have been documented in the HPI. ROS Other: All systems not noted in ROS Statement are negative. Past Medical History Past Medical History: Coronary Artery Disease (CAD), COPD, GERD/Reflux, Hyperlipidemia, Hypertension, Seizure Disorder Additional Past Medical History / Comment(s): Mental delay, last seizure greater than 6 yrs ago. History of Any Multi-Drug Resistant Organisms: None Reported Past Surgical History: Unable to Obtain Past Anesthesia/Blood Transfusion Reactions: Unable to Obtain Past Psychological History: Bipolar, Schizophrenia Smoking Status: Current every day smoker - Past Family History Father History Unknown: Yes Mother History Unknown: Yes General Exam Limitations: no limitations General appearance: alert, in no apparent distress Head exam: Present: atraumatic, normocephalic, normal inspection Eye exam: Present: normal appearance, PERRL, EOMI. Absent: scleral icterus, conjunctival injection, periorbital swelling ENT exam: Present: normal exam, normal oropharynx, mucous membranes moist Neck exam: Present: normal inspection, full ROM. Absent: tenderness, meningismus, lymphadenopathy Respiratory exam: Present: rhonchi, decreased breath sounds. Absent: normal lung sounds bilaterally, respiratory distress, wheezes, rales, stridor Cardiovascular Exam: Present: normal rhythm, tachycardia, normal heart sounds. Absent: systolic murmur, diastolic murmur, rubs, gallop, clicks GI/Abdominal exam: Present: soft, normal bowel sounds. Absent: distended, tenderness, guarding, rebound, rigid Neurological exam: Present: alert Skin exam: Present: warm, dry, intact, normal color. Absent: rash Course Vital Signs 08/18/22 08/18/22 08/18/22 06:20 06:22 06:30 Temperature 99.1 F Pulse Rate 118 H 128 H Respiratory 20 18 Rate Blood Pressure 144/77 144/77 O2 Sat by Pulse 89 L 94 L 93 L Oximetry 08/18/22 08/18/22 08/18/22 06:40 07:00 07:10 Temperature Pulse Rate 122 H 124 H 124 H Respiratory 22 19 20 Rate Blood Pressure 112/57 O2 Sat by Pulse 92 L 94 L 94 L Oximetry 08/18/22 08/18/22 08/18/22 07:20 07:30 07:40 Temperature Pulse Rate 122 H 123 H 124 H Respiratory 17 16 19 Rate Blood Pressure O2 Sat by Pulse 95 91 L 95 Oximetry 08/18/22 08/18/22 08/18/22 07:50 08:00 08:10 Temperature Pulse Rate 117 H 115 H 109 H Respiratory 19 18 15 Rate Blood Pressure 105/82 O2 Sat by Pulse 94 L 94 L 93 L Oximetry 08/18/22 08/18/22 08/18/22 08:20 08:30 08:40 Temperature Pulse Rate 105 H 101 H 95 Respiratory 16 15 16 Rate Blood Pressure O2 Sat by Pulse 93 L Oximetry 08/18/22 08/18/22 08/18/22 08:50 09:30 09:42 Temperature 98.3 F Pulse Rate 85 Respiratory 18 Rate Blood Pressure 100/61 O2 Sat by Pulse 94 L Oximetry Medical Decision Making - Medical Decision Making Was pt. sent in by a medical professional or institution (, PA, PLANT PHYSIOLOGIST, urgent care, hospital, or skilled nursing...) When possible be specific @ -[facility] Did you speak to anyone other than the patient for history (EMS, parent, family, police, friend...)? What history was obtained from this source @ -No Did you review nursing and triage notes (agree or disagree)? Why? @ -I reviewed and agree with nursing and triage notes Were old charts reviewed (outside hosp., previous admission, EMS record, old EKG, old radiological studies, urgent care reports/EKG's, skilled nursing records)? Report findings @ -No old charts were reviewed Differential Diagnosis (chest pain, altered mental status, abdominal pain women, abdominal pain men, vaginal bleeding, weakness, fever, dyspnea, syncope, headache, dizziness, GI bleed, back pain, seizure, CVA, palpatations, mental health, musculoskeletal)? @ -Differential Dyspnea: Coronary syndrome, arrhythmia, tamponade, asthma, COPD, pulmonary embolism, pneumonia, pneumothorax, pulmonary effusion, anaphylaxis, diabetic ketoacidosis, flailed chest, pulmonary contusion, diaphragmatic rupture, anemia, neuromuscu lar, this is not meant to be an all-inclusive list. e EKG interpreted by me (3pts min.). @ -As above X-rays interpreted by me (1pt min.). @ -Chest x-ray shows chronic changes CT interpreted by me (1pt min.). @ -None done U/S interpreted by me (1pt. min.). @ -None done What testing was considered but not performed or refused? (CT, X-rays, U/S, labs)? Why? @ -None What meds were considered but not given or refused? Why? @ -None Did you discuss the management of the patient with other professionals (professionals i.e. , PA, PLANT PHYSIOLOGIST, lab, RT, psych nurse, high school social studies teacher, car electronics installer, teacher, chief diversity officer, trimming caser)? Give summary @ -No Was smoking cessation discussed for >3mins.? @ -No Was critical care preformed (if so, how long)? @ -No Were there social determinants of health that impacted care today? How? (Homelessness, low income, unemployed, alcoholism, drug addiction, transportation, low edu. Level, literacy, decrease access to med. care, skilled nursing, rehab)? @ -No Was there de-escalation of care discussed even if they declined (Discuss DNR or withdrawal of care, Hospice)? DNR status @ -No What co-morbidities impacted this encounter? (DM, HTN, Smoking, COPD, CAD, Cancer, CVA, ARF, Chemo, Hep., AIDS, mental health diagnosis, sleep apnea, morbid obesity)? @ -Hypertension, CAD, lung disease Was patient admitted / discharged? Hospital course, mention meds given and route, prescriptions, significant lab abnormalities, going to OR and other pertinent info. @ -Discharge patient is 94-96% on normal home O2 patient is in no signs of distress. Heart rate is improved after antipyretics. Patient states she feels comfortable with discharge is updated that he is: 19 positive. Undiagnosed new problem with uncertain prognosis? @ -No Drug Therapy requiring intensive monitoring for toxicity (Heparin, Nitro, Insulin, Cardizem)? @ -No Were any procedures done? @ -No Diagnosis/symptom? @ -Covid Acute, or Chronic, or Acute on Chronic? @ -Acute Uncomplicated (without systemic symptoms) or Complicated (systemic symptoms)? @ -Uncomplicated Side effects of treatment? @ -No Exacerbation, Progression, or Severe Exacerbation? @ -No Poses a threat to life or bodily function? How? (Chest pain, [place], DE, pneumonia, PE, COPD, DKA, ARF, appy, cholecystitis, CVA, Diverticulitis, Homicidal, Suicidal, threat to staff... and all critical care pts) @ -No - Lab Data Result diagrams: 08/18/22 06:47 08/18/22 06:47 Lab Results 08/18/22 08/18/22 08/18/22 Range/Units 06:33 06:47 06:47 WBC 11.0 H (3.8-10.6) k/uL RBC 4.04 L (4.30-5.90) m/uL Hgb 13.7 (13.0-17.5) gm/dL Hct 38.9 L (39.0-53.0) % MCV 96.4 (80.0-100.0) fL MCH 33.8 (25.0-35.0) pg MCHC 35.1 (31.0-37.0) g/dL RDW 12.7 (11.5-15.5) % Plt Count 185 (150-450) k/uL MPV 8.6 Neutrophils % 85 % Lymphocytes % 7 % Monocytes % 5 % Eosinophils % 1 % Basophils % 0 % Neutrophils # 9.4 H (1.3-7.7) k/uL Lymphocytes # 0.8 L (1.0-4.8) k/uL Monocytes # 0.5 (0-1.0) k/uL Eosinophils # 0.1 (0-0.7) k/uL Basophils # 0.0 (0-0.2) k/uL PT 10.7 (9.0-12.0) sec INR 1.0 (<1.2) APTT 24.0 (22.0-30.0) sec Sodium (137-145) mmol/L Potassium (3.5-5.1) mmol/L Chloride (98-107) mmol/L Carbon Dioxide (22-30) mmol/L Anion Gap mmol/L BUN (9-20) mg/dL Creatinine (0.66-1.25) mg/dL Est GFR (CKD-EPI)AfAm (>60 ml/min/1.73 sqM) Est GFR (CKD-EPI)NonAf (>60 ml/min/1.73 sqM) Glucose (74-99) mg/dL Plasma Lactic Acid Jake (0.7-2.0) mmol/L Calcium (8.4-10.2) mg/dL Magnesium (1.6-2.3) mg/dL Total Bilirubin (0.2-1.3) mg/dL AST (17-59) U/L ALT (4-49) U/L Alkaline Phosphatase (38-126) U/L Troponin I (0.000-0.034) ng/mL NT-Pro-B Natriuret Pep pg/mL Total Protein (6.3-8.2) g/dL Albumin (3.5-5.0) g/dL Influenza Type A (PCR) Not Detected (Not Detectd) Influenza Type B (PCR) Not Detected (Not Detectd) RSV (PCR) Not Detected (Not Detectd) SARS-CoV-2 (PCR) Detected A (Not Detectd) 08/18/22 08/18/22 08/18/22 Range/Units 06:47 06:47 06:47 WBC (3.8-10.6) k/uL RBC (4.30-5.90) m/uL Hgb (13.0-17.5) gm/dL Hct (39.0-53.0) % MCV (80.0-100.0) fL MCH (25.0-35.0) pg MCHC (31.0-37.0) g/dL RDW (11.5-15.5) % Plt Count (150-450) k/uL MPV Neutrophils % % Lymphocytes % % Monocytes % % Eosinophils % % Basophils % % Neutrophils # (1.3-7.7) k/uL Lymphocytes # (1.0-4.8) k/uL Monocytes # (0-1.0) k/uL Eosinophils # (0-0.7) k/uL Basophils # (0-0.2) k/uL PT (9.0-12.0) sec INR (<1.2) APTT (22.0-30.0) sec Sodium 135 L (137-145) mmol/L Potassium 3.4 L (3.5-5.1) mmol/L Chloride 95 L (98-107) mmol/L Carbon Dioxide 32 H (22-30) mmol/L Anion Gap 8 mmol/L BUN 17 (9-20) mg/dL Creatinine 0.90 (0.66-1.25) mg/dL Est GFR (CKD-EPI)AfAm >90 (>60 ml/min/1.73 sqM) Est GFR (CKD-EPI)NonAf 87 (>60 ml/min/1.73 sqM) Glucose 113 H (74-99) mg/dL Plasma Lactic Acid Jake 1.5 (0.7-2.0) mmol/L Calcium 8.3 L (8.4-10.2) mg/dL Magnesium 1.9 (1.6-2.3) mg/dL Total Bilirubin 1.5 H (0.2-1.3) mg/dL AST 34 (17-59) U/L ALT 38 (4-49) U/L Alkaline Phosphatase 85 (38-126) U/L Troponin I <0.012 (0.000-0.034) ng/mL NT-Pro-B Natriuret Pep pg/mL Total Protein 6.7 (6.3-8.2) g/dL Albumin 3.8 (3.5-5.0) g/dL Influenza Type A (PCR) (Not Detectd) Influenza Type B (PCR) (Not Detectd) RSV (PCR) (Not Detectd) SARS-CoV-2 (PCR) (Not Detectd) 08/18/22 Range/Units 06:47 WBC (3.8-10.6) k/uL RBC (4.30-5.90) m/uL Hgb (13.0-17.5) gm/dL Hct (39.0-53.0) % MCV (80.0-100.0) fL MCH (25.0-35.0) pg MCHC (31.0-37.0) g/dL RDW (11.5-15.5) % Plt Count (150-450) k/uL MPV Neutrophils % % Lymphocytes % % Monocytes % % Eosinophils % % Basophils % % Neutrophils # (1.3-7.7) k/uL Lymphocytes # (1.0-4.8) k/uL Monocytes # (0-1.0) k/uL Eosinophils # (0-0.7) k/uL Basophils # (0-0.2) k/uL PT (9.0-12.0) sec INR (<1.2) APTT (22.0-30.0) sec Sodium (137-145) mmol/L Potassium (3.5-5.1) mmol/L Chloride (98-107) mmol/L Carbon Dioxide (22-30) mmol/L Anion Gap mmol/L BUN (9-20) mg/dL Creatinine (0.66-1.25) mg/dL Est GFR (CKD-EPI)AfAm (>60 ml/min/1.73 sqM) Est GFR (CKD-EPI)NonAf (>60 ml/min/1.73 sqM) Glucose (74-99) mg/dL Plasma Lactic Acid Jake (0.7-2.0) mmol/L Calcium (8.4-10.2) mg/dL Magnesium (1.6-2.3) mg/dL Total Bilirubin (0.2-1.3) mg/dL AST (17-59) U/L ALT (4-49) U/L Alkaline Phosphatase (38-126) U/L Troponin I (0.000-0.034) ng/mL NT-Pro-B Natriuret Pep 387 pg/mL Total Protein (6.3-8.2) g/dL Albumin (3.5-5.0) g/dL Influenza Type A (PCR) (Not Detectd) Influenza Type B (PCR) (Not Detectd) RSV (PCR) (Not Detectd) SARS-CoV-2 (PCR) (Not Detectd) - EKG Data -: EKG Interpreted by Me EKG Comments: 6:58 sinus tachycardia rate of 124 OH 189 QRS 90 QT status QTC 409/482 Disposition Clinical Impression: COVID-19 Disposition: HOME SELF-CARE Condition: Stable Instructions (If sedation given, give patient instructions): COVID-19 (Coronavirus Disease 2019) (ED) Additional Instructions: Please return to the Emergency Department if symptoms worsen or any other concerns. Is patient prescribed a controlled substance at d/c from ED?: No Referrals: Job Wiseman MD [Primary Care Provider] - 1-2 days Time of Disposition: 08:45
[2022-08-18 06:56] LABS: Basophils % (A) 0 %; Eosinophils # (A) 0.1 k/uL (0-0.7); Eosinophils % (A) 1 %; HCT 38.9 % (39.0-53.0); HGB 13.7 gm/dL (13.0-17.5); Lymphocytes # (A) 0.8 k/uL (1.0-4.8); Lymphocytes % (A) 7 %; MCH 33.8 pg (25.0-35.0); MCHC 35.1 g/dL (31.0-37.0); MCV 96.4 fL (80.0-100.0); Mean Platelet Volume 8.6; Monocytes # (A) 0.5 k/uL (0-1.0); Monocytes % (A) 5 %; Neutrophils # (A) 9.4 k/uL (1.3-7.7); Neutrophils % (A) 85 %; Platelet Count 185 k/uL (150-450); RBC 4.04 m/uL (4.30-5.90); RDW 12.7 % (11.5-15.5)
--- NOTE | 2022-08-18 06:58 | XR ---
EXAMINATION TYPE: XR chest 2V DATE OF EXAM: 08/18/2022 COMPARISON: Chest x-ray September 10, 2021 HISTORY: Difficulty in breathing TECHNIQUE: Frontal and lateral views of the chest are obtained. FINDINGS: There is mild cardiomegaly with mild to moderate central vascular congestion redemonstrated . No pleural effusion or pneumothorax seen bilaterally. Osseous structures are intact. IMPRESSION: Suspect CHF exacerbation. Correlate clinically and with BNP values..
[2022-08-18 07:05] LABS: Prothrombin Time 10.7 sec (9.0-12.0)
[2022-08-18 07:10] LABS: ALT 38 U/L (4-49); AST 34 U/L (17-59); African American GFR (CKD) >90 (>60 ml/min/1.73 sqM); Albumin 3.8 g/dL (3.5-5.0); Alkaline Phosphatase 85 U/L (38-126); Anion Gap 8 mmol/L; Blood Urea Nitrogen 17 mg/dL (9-20); Calcium 8.3 mg/dL (8.4-10.2); Carbon Dioxide 32 mmol/L (22-30); Chloride 95 mmol/L (98-107); Glucose 113 mg/dL (74-99); Magnesium 1.9 mg/dL (1.6-2.3); Non-African American GFR(CKD) 87 (>60 ml/min/1.73 sqM); Potassium 3.4 mmol/L (3.5-5.1); Sodium 135 mmol/L (137-145); Total Bilirubin 1.5 mg/dL (0.2-1.3); Total Protein 6.7 g/dL (6.3-8.2)
[2022-08-18] MEDS ORDERED: KETOROLAC 15 MG/ML 1 ML VIAL IVP STA (07:52)
[2022-08-18] MEDS ORDERED: SODIUM CHLORIDE 0.9% 500 ML 500 ML IV ONE (07:52)
[2022-08-18] MEDS ORDERED: METOPROLOL TARTRATE 50 MG TAB PO STA (07:53)
[2022-08-18 09:22] VITALS: PULSE 85; RESP 18
[2022-08-18 09:30] VITALS: BP 100/61
[2022-08-18 09:45] VITALS: TEMP 98.3
== END 2022-08-18 09:45 | disposition home or self-care (01) ==
LOC: EC 06:17
DX: U07.1 COVID-19 (principal); I10 Essential (primary) hypertension; I25.10 Atherosclerotic heart disease of native coronary artery without angina pectoris; J44.9 Chronic obstructive pulmonary disease, unspecified; E78.5 Hyperlipidemia, unspecified; K21.9 Gastro-esophageal reflux disease without esophagitis; F31.9 Bipolar disorder, unspecified; F20.9 Schizophrenia, unspecified; F17.200 Nicotine dependence, unspecified, uncomplicated; Z79.899 Other long term (current) drug therapy
CPT/HCPCS: 36415; 93005; 83880; 80053; 83605; 83735; 84484; 85025; 85610; 85730; 87636; 71046; 99285; 96374; 96361; J1885

== ENCOUNTER 2023-08-01 21:57 | Emergency (ER) | payer MEDICARE ==
--- NOTE | 2023-08-01 22:25 | ED ---
General Adult HPI - General Chief complaint: Altered Mental Status Stated complaint: Altered mental status Time Seen by Provider: 08/01/23 21:59 Source: patient, EMS, RN notes reviewed, old records reviewed Mode of arrival: EMS Limitations: physical limitation - History of Present Illness Initial comments: 72-year-old male presents from his longterm for evaluation of confusion, and dyspnea. The patient himself is alert and oriented, has no complaints, no dyspnea, no chest pain or abdominal pain. No vomiting or diarrhea. The patient was noted to be hypoxic requiring supplemental oxygen he does have history of COPD. Additionally there was note of lower extremity edema. - Related Data Home Medications Medication Instructions Recorded Confirmed ALPRAZolam [Xanax] 1 mg PO BID@08,199909/10/21 09/10/21 Ascorbic Acid [Vitamin C] 1,000 mg PO DAILY@79909/10/21 09/10/21 Cyanocobalamin (Vitamin B-12) 1,000 mcg PO DAILY@79909/10/21 09/10/21 [Vitamin B-12] Ergocalciferol [Vitamin D2 (1250 1,250 mcg PO FR 09/10/21 09/10/21 Mcg = 79140 Iu)] Folic Acid 1 mg PO DAILY@79909/10/21 09/10/21 Ibuprofen [Motrin] 800 mg PO Q6H PRN 09/10/21 09/10/21 Ipratropium [place] 0.06%Nasal 2 spray EA NOSTRIL QID PRN 09/10/21 09/10/21 [Atrovent Nasal 0.06%] LORazepam [Ativan] 1 mg PO TID PRN 09/10/21 09/10/21 Loratadine [Claritin] 10 mg PO DAILY@79909/10/21 09/10/21 Metoprolol Tartrate [Lopressor] 50 mg PO BID@08,199909/10/21 09/10/21 QUEtiapine [SEROquel] 100 mg PO DAILY@79909/10/21 09/10/21 Rosuvastatin Calcium [Crestor] 5 mg PO HS@199909/10/21 09/10/21 Sertraline [Zoloft] 25 mg PO DAILY@79909/10/21 09/10/21 Sertraline [Zoloft] 50 mg PO DAILY 09/10/21 09/10/21 Zinc 50 mg PO DAILY@0800 09/10/21 09/10/21 tiaGABine HCL [Gabitril] 2 mg PO BID@0800,199909/10/21 09/10/21 Previous Rx's Medication Instructions Recorded Cefdinir [Omnicef] 300 mg PO Q12HR 3 Days #6 capsule 09/14/21 methylPREDNISolone Dose Pack 4 mg PO DIRECTED #1 packet 09/14/21 [Medrol Dose Pack] Cephalexin [Keflex] 500 mg PO Q6HR 10 Days #40 cap 08/02/23 Allergies Allergy/AdvReac Type Severity Reaction Status Date / Time No Known Allergies Allergy Verified 08/01/23 22:10 Review of Systems ROS Statement: Those systems with pertinent positive or pertinent negative responses have been documented in the HPI. ROS Other: All systems not noted in ROS Statement are negative. Past Medical History Past Medical History: Coronary Artery Disease (CAD), COPD, GERD/Reflux, Hyperlipidemia, Hypertension, Seizure Disorder Additional Past Medical History / Comment(s): Mental delay, last seizure greater than 6 yrs ago. History of Any Multi-Drug Resistant Organisms: None Reported Past Surgical History: Unable to Obtain Past Anesthesia/Blood Transfusion Reactions: Unable to Obtain Past Psychological History: Bipolar, Schizophrenia Smoking Status: Former smoker Past Alcohol Use History: None Reported Past Drug Use History: None Reported - Past Family History Father History Unknown: Yes Mother History Unknown: Yes General Exam Limitations: physical limitation General appearance: alert, in no apparent distress Head exam: Present: atraumatic, normocephalic Eye exam: Present: normal appearance, PERRL, EOMI Neck exam: Present: normal inspection. Absent: tenderness Respiratory exam: Present: decreased breath sounds. Absent: respiratory distress, wheezes, rales, rhonchi Cardiovascular Exam: Present: regular rate, normal rhythm GI/Abdominal exam: Present: soft, distended. Absent: tenderness, guarding, rebound Extremities exam: Present: pedal edema (Erythema of the right lower extremity consistent with cellulitis) Neurological exam: Present: alert, oriented X3, CN II-XII intact. Absent: motor sensory deficit Skin exam: Present: warm, dry Course Vital Signs 08/01/23 22:03 Temperature 97.7 F Pulse Rate 69 Respiratory 18 Rate Blood Pressure 117/71 O2 Sat by Pulse 95 Oximetry Medical Decision Making - Medical Decision Making Was pt. sent in by a medical professional or institution (DAKOTA Mota, INSTRUMENT SHOP SUPERVISOR, urgent care, hospital, or penitentiary...) When possible be specific @ -No Did you speak to anyone other than the patient for history (EMS, parent, family, police, friend...)? What history was obtained from this source @ -No Did you review nursing and triage notes (agree or disagree)? Why? @ -I reviewed and agree with nursing and triage notes Were old charts reviewed (outside hosp., previous admission, EMS record, old EKG, old radiological studies, urgent care reports/EKG's, penitentiary records)? Report findings @ -No old charts were reviewed Differential Diagnosis (chest pain, altered mental status, abdominal pain women, abdominal pain men, vaginal bleeding, weakness, fever, dyspnea, syncope, headache, dizziness, GI bleed, back pain, seizure, CVA, palpatations, mental health, musculoskeletal)? @ -Not applicable EKG interpreted by me (3pts min.). @ -[EKG: Sinus rhythm rate of 71, NC interval 207, QRS duration 82, QTc [address] segment elevation. X-rays interpreted by me (1pt min.). @ -Negative for acute cardiopulmonary finding on single view chest x-ray CT interpreted by me (1pt min.). @ -[None done U/S interpreted by me (1pt. min.). @ -None done What testing was considered but not performed or refused? (CT, X-rays, U/S, labs)? Why? @ -None What meds were considered but not given or refused? Why? @ -None Did you discuss the management of the patient with other professionals (professionals i.e. DAKOTA Mota, INSTRUMENT SHOP SUPERVISOR, lab, RT, psych nurse, social work program coordinator, egyptologist, teacher, chairman & chief executive officer, medical case worker)? Give summary @ -No Was smoking cessation discussed for >3mins.? @ -No Was critical care preformed (if so, how long)? @ -No Were there social determinants of health that impacted care today? How? (Homelessness, low income, unemployed, alcoholism, drug addiction, enriquez sportation, low edu. Level, literacy, decrease access to med. care, long-term, rehab)? @ -No Was there de-escalation of care discussed even if they declined (Discuss DNR or withdrawal of care, Hospice)? DNR status @ -No What co-morbidities impacted this encounter? (DM, HTN, Smoking, COPD, CAD, Cancer, CVA, ARF, Chemo, Hep., AIDS, mental health diagnosis, sleep apnea, morbid obesity)? @ -None Was patient admitted / discharged? Hospital course, mention meds given and route, prescriptions, significant lab abnormalities, going to OR and other pertinent info. @ -9-year-old male presents from assisted living facility with episode of confusion, resolved. I did do a workup on this patient including chest x-ray, laboratory testing. He does have a right leg cellulitis. Patient is well- appearing, nontoxic, stable vitals. Alert and oriented x 3. Normal white blood cell count, normal laboratory testing overall. Given a dose of antibiotics in the emergency department and will be prescribed oral antibiotics for right leg cellulitis. Stable for discharge at this time. Undiagnosed new problem with uncertain prognosis? @ -No Drug Therapy requiring intensive monitoring for toxicity (Heparin, Nitro, Insulin, Cardizem)? @ -No Were any procedures done? @ -No Diagnosis/symptom? @ -[Right leg cellulitis Acute, or Chronic, or Acute on Chronic? @ -Acute Uncomplicated (without systemic symptoms) or Complicated (systemic symptoms)? @ -[default Side effects of treatment? @ -No Exacerbation, Progression, or Severe Exacerbation? @ -No Poses a threat to life or bodily function? How? (Chest pain, [place], [place], pneumonia, PE, COPD, DKA, ARF, appy, cholecystitis, CVA, Diverticulitis, Homicidal, [place] icidal, threat to staff... and all critical care pts) @ -[Low risk at this time - Lab Data Result diagrams: 08/02/23 00:08 08/01/23 23:31 Lab Results 08/01/23 08/01/23 08/02/23 Range/Units 23:31 23:31 00:08 WBC (3.8-10.6) k/uL RBC (4.30-5.90) m/uL Hgb (13.0-17.5) gm/dL Hct (39.0-53.0) % MCV (80.0-100.0) fL MCH (25.0-35.0) pg MCHC (31.0-37.0) g/dL RDW (11.5-15.5) % Plt Count (150-450) k/uL MPV Neutrophils % % Lymphocytes % % Monocytes % % Eosinophils % % Basophils % % Neutrophils # (1.3-7.7) k/uL Lymphocytes # (1.0-4.8) k/uL Monocytes # (0-1.0) k/uL Eosinophils # (0-0.7) k/uL Basophils # (0-0.2) k/uL PT (10.0-12.5) sec INR (<1.2) APTT (22.0-30.0) sec VBG pH 7.52 H (7.31-7.41) VBG pCO2 37 (37-51) mmHg VBG HCO3 30 H (24-28) mmol/L Sodium 137 (137-145) mmol/L Potassium 3.9 (3.5-5.1) mmol/L Chloride 98 (98-107) mmol/L Carbon Dioxide 37 H (22-30) mmol/L Anion Gap 2 mmol/L BUN 12 (9-20) mg/dL Creatinine 0.71 (0.66-1.25) mg/dL Est GFR (CKD-EPI)AfAm >90 (>60 ml/min/1.73 sqM) Est GFR (CKD-EPI)NonAf >90 (>60 ml/min/1.73 sqM) Glucose 100 H (74-99) mg/dL Plasma Lactic Acid Jake 1.5 (0.7-2.0) mmol/L Calcium 8.7 (8.4-10.2) mg/dL Magnesium 2.1 (1.6-2.3) mg/dL Total Bilirubin 1.0 (0.2-1.3) mg/dL AST 42 (17-59) U/L ALT 36 (4-49) U/L Alkaline Phosphatase 81 (38-126) U/L NT-Pro-B Natriuret Pep <20 pg/mL Total Protein 6.9 (6.3-8.2) g/dL Albumin 3.8 (3.5-5.0) g/dL 08/02/23 08/02/23 Range/Units 00:08 00:08 WBC 6.5 (3.8-10.6) k/uL RBC 4.42 (4.30-5.90) m/uL Hgb 14.6 (13.0-17.5) gm/dL Hct 43.5 (39.0-53.0) % MCV 98.3 (80.0-100.0) fL MCH 32.9 (25.0-35.0) pg MCHC 33.5 (31.0-37.0) g/dL RDW 13.0 (11.5-15.5) % Plt Count 215 (150-450) k/uL MPV 8.9 Neutrophils % 55 % Lymphocytes % 31 % Monocytes % 7 % Eosinophils % 3 % Basophils % 1 % Neutrophils # 3.5 (1.3-7.7) k/uL Lymphocytes # 2.0 (1.0-4.8) k/uL Monocytes # 0.5 (0-1.0) k/uL Eosinophils # 0.2 (0-0.7) k/uL Basophils # 0.1 (0-0.2) k/uL PT 10.3 (10.0-12.5) sec INR 0.9 (<1.2) APTT 24.7 (22.0-30.0) sec VBG pH (7.31-7.41) VBG pCO2 (37-51) mmHg VBG HCO3 (24-28) mmol/L Sodium (137-145) mmol/L Potassium (3.5-5.1) mmol/L Chloride (98-107) mmol/L Carbon Dioxide (22-30) mmol/L Anion Gap mmol/L BUN (9-20) mg/dL Creatinine (0.66-1.25) mg/dL Est GFR (CKD-EPI)AfAm (>60 ml/min/1.73 sqM) Est GFR (CKD-EPI)NonAf (>60 ml/min/1.73 sqM) Glucose (74-99) mg/dL Plasma Lactic Acid Jake (0.7-2.0) mmol/L Calcium (8.4-10.2) mg/dL Magnesium (1.6-2.3) mg/dL Total Bilirubin (0.2-1.3) mg/dL AST (17-59) U/L ALT (4-49) U/L Alkaline Phosphatase (38-126) U/L NT-Pro-B Natriuret Pep pg/mL Total Protein (6.3-8.2) g/dL Albumin (3.5-5.0) g/dL Disposition Clinical Impression: Cellulitis Disposition: HOME SELF-CARE Condition: Fair Instructions (If sedation given, give patient instructions): Cellulitis (ED) Prescriptions: Cephalexin [Keflex] 500 mg PO Q6HR 10 Days #40 cap Is patient prescribed a controlled substance at d/c from ED?: No Referrals: None,Stated [Primary Care Provider] - 1-2 days Time of Disposition: 01:39
[2023-08-01 22:26] VITALS: RESP 18
--- NOTE | 2023-08-01 22:51 | XR ---
EXAMINATION TYPE: XR chest 1V portable DATE OF EXAM: 08/01/2023 COMPARISON: Chest x-rays August 18, 2022 HISTORY: Altered mental status and weakness TECHNIQUE: Single frontal view of the chest is obtained. FINDINGS: There is no suspicious new focal air space opacity, pleural effusion, or pneumothorax seen . The cardiac silhouette size is stable and upper limits of normal. The osseous structures are int act. IMPRESSION: No acute process.
[2023-08-02 00:01] LABS: ALT 36 U/L (4-49); AST 42 U/L (17-59); African American GFR (CKD) >90 (>60 ml/min/1.73 sqM); Albumin 3.8 g/dL (3.5-5.0); Alkaline Phosphatase 81 U/L (38-126); Anion Gap 2 mmol/L; Blood Urea Nitrogen 12 mg/dL (9-20); Calcium 8.7 mg/dL (8.4-10.2); Carbon Dioxide 37 mmol/L (22-30); Chloride 98 mmol/L (98-107); Glucose 100 mg/dL (74-99); Magnesium 2.1 mg/dL (1.6-2.3); Non-African American GFR(CKD) >90 (>60 ml/min/1.73 sqM); Potassium 3.9 mmol/L (3.5-5.1); Sodium 137 mmol/L (137-145); Total Protein 6.9 g/dL (6.3-8.2)
[2023-08-02 00:09] LABS: NT-Pro-B-Type Natriuretic Pept <20 pg/mL
[2023-08-02 00:48] LABS: VBG PH 7.52 (7.31-7.41)
[2023-08-02 00:49] LABS: Basophils # (A) 0.1 k/uL (0-0.2); Basophils % (A) 1 %; Eosinophils # (A) 0.2 k/uL (0-0.7); Eosinophils % (A) 3 %; HCT 43.5 % (39.0-53.0); HGB 14.6 gm/dL (13.0-17.5); Lymphocytes % (A) 31 %; MCH 32.9 pg (25.0-35.0); MCHC 33.5 g/dL (31.0-37.0); MCV 98.3 fL (80.0-100.0); Mean Platelet Volume 8.9; Monocytes # (A) 0.5 k/uL (0-1.0); Monocytes % (A) 7 %; Neutrophils # (A) 3.5 k/uL (1.3-7.7); Neutrophils % (A) 55 %; Platelet Count 215 k/uL (150-450); RBC 4.42 m/uL (4.30-5.90); WBC 6.5 k/uL (3.8-10.6)
[2023-08-02 00:57] LABS: INR 0.9 (<1.2); Partial Thromboplastin Time 24.7 sec (22.0-30.0); Prothrombin Time 10.3 sec (10.0-12.5)
[2023-08-02 02:07] VITALS: PULSE 76
[2023-08-02 09:25] VITALS: BP 124/70; TEMP 98.4
== END 2023-08-02 09:00 | disposition home or self-care (01) ==
LOC: EC 21:57
DX: L03.90 Cellulitis, unspecified (principal); I10 Essential (primary) hypertension; I25.10 Atherosclerotic heart disease of native coronary artery without angina pectoris; J44.9 Chronic obstructive pulmonary disease, unspecified; F31.9 Bipolar disorder, unspecified; E78.5 Hyperlipidemia, unspecified; Z79.899 Other long term (current) drug therapy; Z87.891 Personal history of nicotine dependence
CPT/HCPCS: 36415; 93005; 83880; 80053; 82803; 83605; 83735; 85025; 85610; 85730; 87040; 71045; 99285; 96365; J0696

== ENCOUNTER 2024-03-07 10:13 | Emergency (ER) | payer MEDICARE, OTHER ==
[2024-03-07 10:25] VITALS: RESP 18
[2024-03-07] MEDS: LIDOCAINE/EPINEPHR/TETRACAINE 5 ML BOTTLE TOPICAL ONE (10:35)
--- NOTE | 2024-03-07 11:52 | ED ---
Wound/Laceration HPI - General Chief Complaint: Wound/Laceration Stated Complaint: Bottom Laceration Time Seen by Provider: 03/07/24 10:19 Source: patient, EMS, RN notes reviewed Mode of arrival: EMS Limitations: altered mental status, physical limitation - History of Present Illness Initial Comments: This is a 73-year-old male who presents to the emergency department for a wound in his intergluteal cleft. Patient lives at an adult foster care facility. Staff was bathing him this morning and noticed a bleeding laceration in his intergluteal cleft. States that he may have fallen a week ago causing an injury to this area. Denies any pain associated with this or elsewhere. Not taking any blood thinners. - Related Data Home Medications Medication Instructions Recorded Confirmed ALPRAZolam [Xanax] 1 mg PO BID@08,199909/10/21 03/07/24 Ascorbic Acid [Vitamin C] 1,000 mg PO DAILY@79909/10/21 03/07/24 Cyanocobalamin (Vitamin B-12) 1,000 mcg PO DAILY@79909/10/21 03/07/24 [Vitamin B-12] Ergocalciferol [Vitamin D2 (1250 1,250 mcg PO FR@79909/10/21 03/07/24 Mcg = 89472 Iu)] Folic Acid 1 mg PO DAILY@79909/10/21 03/07/24 Ibuprofen [Motrin] 800 mg PO Q8H PRN 09/10/21 03/07/24 Ipratropium [place] 0.06%Nasal 2 spray EA NOSTRIL QID PRN 09/10/21 03/07/24 [Atrovent Nasal 0.06%] LORazepam [Ativan] 1 mg PO TID PRN 09/10/21 03/07/24 Loratadine [Claritin] 10 mg PO DAILY@79909/10/21 03/07/24 Rosuvastatin Calcium [Crestor] 5 mg PO HS@199909/10/21 03/07/24 Sertraline [Zoloft] 25 mg PO DAILY@79909/10/21 03/07/24 Sertraline [Zoloft] 50 mg PO DAILY@79909/10/21 03/07/24 Zinc 50 mg PO DAILY@79909/10/21 03/07/24 Betamethasone Valerate [Luxiq 0.1%] 1 applic TOPICAL BID PRN 03/07/24 03/07/24 Chlorthalidone 100 mg PO DAILY@0800 03/07/24 03/07/24 Levothyroxine Sodium [Synthroid] 25 mcg PO AC-BRKFST@0600 03/07/24 03/07/24 Metoprolol Tartrate [Lopressor] 25 mg PO BID@0800,199903/07/24 03/07/24 Potassium Chloride ER [K-Dur 20] 20 meq PO TID@0800,1400,199903/07/24 03/07/24 QUEtiapine FUMARATE [SEROquel] 200 mg PO DAILY@1200 03/07/24 03/07/24 QUEtiapine [SEROquel] 100 mg PO DAILY@0800 03/07/24 03/07/24 QUEtiapine [SEROquel] 600 mg PO HS@199903/07/24 03/07/24 Spironolactone [Aldactone] 50 mg PO DAILY@0800 03/07/24 03/07/24 levETIRAcetam [Keppra] 250 mg PO Q12HR@0800,199903/07/24 03/07/24 Allergies Allergy/AdvReac Type Severity Reaction Status Date / Time No Known Allergies Allergy Verified 03/07/24 11:21 Review of Systems ROS Statement: Those systems with pertinent positive or pertinent negative responses have been documented in the HPI. ROS Other: All systems not noted in ROS Statement are negative. Past Medical History Past Medical History: Coronary Artery Disease (CAD), COPD, GERD/Reflux, Hyperlipidemia, Hypertension, Seizure Disorder Additional Past Medical History / Comment(s): Mental delay, last seizure greater than 6 yrs ago. History of Any Multi-Drug Resistant Organisms: None Reported Past Surgical History: Unable to Obtain Past Anesthesia/Blood Transfusion Reactions: Unable to Obtain Past Psychological History: Bipolar, Schizophrenia Smoking Status: Former smoker Past Alcohol Use History: None Reported Past Drug Use History: None Reported - Past Family History Father History Unknown: Yes Mother History Unknown: Yes General Exam Limitations: altered mental status, physical limitation General appearance: alert, in no apparent distress Head exam: Present: atraumatic, normocephalic, normal inspection Respiratory exam: Present: normal lung sounds bilaterally. Absent: respiratory distress, wheezes, rales, rhonchi, stridor Cardiovascular Exam: Present: regular rate, normal rhythm, normal heart sounds. Absent: systolic murmur, diastolic murmur, rubs, gallop, clicks Rectal exam: Present: other (Laceration to the top of the intergluteal cleft with active bleeding) Neurological exam: Present: alert, oriented X3, CN II-XII intact Psychiatric exam: Present: normal affect, normal mood Course Vital Signs 03/07/24 03/07/24 03/07/24 10:16 11:26 12:11 Temperature 98.1 F Pulse Rate 81 84 101 H Respiratory 18 18 18 Rate Blood Pressure 105/58 108/89 108/89 O2 Sat by Pulse 94 L 95 96 Oximetry 03/07/24 13:14 Temperature 97.7 F Pulse Rate 69 Respiratory 18 Rate Blood Pressure 115/71 O2 Sat by Pulse 98 Oximetry Procedures - Laceration Laceration #1 Consent Obtained: verbal consent Indication: laceration Site: buttock Size (cm): 1 Description: linear Depth: simple, single layer Anesthetic Used: lidocaine 1%, with epi Anesthesia Technique: local infiltration Amount (mls): 2 Pre-repair: wound explored, irrigated extensively Type of Sutures: vicryl Size of Sutures: 5-0 Number of Sutures: 2 Technique: other (figure of 8) Medical Decision Making - Medical Decision Making This is a 73 year old male who presents to the emergency department for a laceration in his buttocks. Was pt. sent in by a medical professional or institution? @ -No Did you speak to anyone other than the patient for history? @ -EMS supplemented the history Did you review nursing and triage notes? @ -Yes, and I agree, it is accurate with regards to the patient's symptoms. Were old charts reviewed? @ -No Differential Diagnosis? @ -Laceration, abrasion, cellulitis, skin tear, burn, puncture wound, this is not meant to be an all-inclusive list. EKG interpreted by me (3pts min.)? @ -Not obtained X-rays interpreted by me (1pt min.)? @ -Not obtained CT interpreted by me (1pt min.)? @ -Not obtained U/S interpreted by me (1pt. min.)? @ -Not obtained What testing was considered but not performed? (CT, X-rays, U/S, labs)? Why? @ -None What meds were considered but not given? Why? @ -None Did you discuss the management of the patient with other professionals? @ -No Did you reconcile home meds? @ -No Was smoking cessation discussed for >3mins.? @ -No Was critical care preformed (if so, how long)? @ -No Were there social determinants of health that impacted care today? How? (Homelessness, low income, unemployed, alcoholism, drug addiction, transportation, low edu. Level, literacy, decrease access to med. care, fdc, rehab)? @ -No Was there de-escalation of care discussed even if they declined? (Discuss DNR or withdrawal of care, Hospice)? @ -No What co-morbidities impacted this encounter? (DM, HTN, Smoking, COPD, CAD, Cancer, CVA, Hep., AIDS, mental health diagnosis, sleep apnea, morbid obesity)? @ -Mental delay Was patient admitted / discharged? @ -Discharged. On exam he had active bleeding from the top of his intergluteal cleft. LET was first applied to help control the bleeding and get a better visualization of this area. This did help her, but was not sufficient. Lidocaine with epinephrine was then used to offer additional help with hemostasis. When the area could be visualized it was found that this was a very small area, almost like a varicose vein, that had been bleeding. 2 [id number] sutures were placed using absorbable suture material. Bleeding was then controlled. Patient discharged back to [facility] in stable condition. Case discussed with ED attending Dr. Pearl. Return precautions reviewed in depth, the patient is instructed to return to the emergency department with any new, worsening, or concerning symptoms. Patient verbalized understanding. Undiagnosed new problem with uncertain prognosis? @ -None Drug Therapy requiring intensive monitoring for toxicity (Heparin, Nitro, Insulin, Cardizem)? @ -None Were any procedures done? @ -Wound repair with sutures Diagnosis/symptom? @ -Bleeding varicose vein Acute, or Chronic, or Acute on Chronic? @ -Acute Uncomplicated (without systemic symptoms) or Complicated (systemic symptoms)? @ -Uncomplicated Side effects of treatment? @ -None Exacerbation, Progression, or Severe Exacerbation] @ -Not applicable Poses a threat to life or bodily function? @ -No Disposition Clinical Impression: Bleeding from varicose vein Disposition: HOME SELF-CARE Instructions (If sedation given, give patient instructions): Care For Your Absorbable Stitches (ED) Additional Instructions: Return to the emergency department with any new, worsening, or concerning symptoms. Follow up with your primary care provider in 1-2 days. Is patient prescribed a controlled substance at d/c from ED?: No Referrals: Job Wiseman MD [Primary Care Provider] - 1-2 days Time of Disposition: 12:20
[2024-03-07] MEDS: LIDOCAINE 1%-EPI 1:100,000 20 ML VIAL SQ STA (12:11)
[2024-03-07 13:15] VITALS: BP 115/71; PULSE 69; TEMP 97.7
== END 2024-03-07 13:27 | disposition home or self-care (01) ==
LOC: EC 10:13
CPT/HCPCS: 12001; 99282

== ENCOUNTER → 2024-03-22 | Outpatient (CLI) | payer MEDICARE, OTHER ==
--- NOTE | 2024-03-22 11:47 | FL ---
Exam Date: 03/22/2024 11:36 AM. Modified barium swallow for dysphagia. Consistencies administered: Various consistency of barium. Fluoro time: 1 min 44 No images were sent to PACS. Please see speech pathology report. DAP: not recorded [facility], , 03/22/2024 11:44 AM
== END | disposition home or self-care (01) ==
LOC: RADFLMAIN 10:53
PROVIDERS: ATTEND Family Medicine
CPT/HCPCS: 74230

== ENCOUNTER 2024-03-27 08:16 | Inpatient (IN) | payer MEDICARE, OTHER ==
[2024-03-27] MEDS: SODIUM CHLORIDE 0.9% 500 ML 500 ML IV STA (08:34)
--- NOTE | 2024-03-27 08:41 | ED ---
General Adult HPI - General Chief complaint: Shortness of Breath Stated complaint: SOB Time Seen by Provider: 03/27/24 08:19 Source: patient, EMS, RN notes reviewed, old records reviewed Mode of arrival: EMS Limitations: physical limitation - History of Present Illness Initial comments: 73-year-old male presenting with fever, hypoxia. Patient does have history of COPD. He reports cough. Patient himself denies pain complaints including no chest pain or abdominal pain. Does admit that he has had a cough. History is limited. - Related Data Home Medications Medication Instructions Recorded Confirmed ALPRAZolam [Xanax] 1 mg PO BID@08,199909/10/21 03/27/24 Cyanocobalamin (Vitamin B-12) 1,000 mcg PO DAILY@79909/10/21 03/27/24 [Vitamin B-12] Ergocalciferol [Vitamin D2 (1250 1,250 mcg PO FR@79909/10/21 03/27/24 Mcg = 10439 Iu)] Folic Acid 1 mg PO DAILY@79909/10/21 03/27/24 Ibuprofen [Motrin] 800 mg PO Q8H PRN 09/10/21 03/27/24 LORazepam [Ativan] 1 mg PO TID PRN 09/10/21 03/27/24 Loratadine [Claritin] 10 mg PO DAILY@79909/10/21 03/27/24 Rosuvastatin Calcium [Crestor] 5 mg PO HS@199909/10/21 03/27/24 Sertraline [Zoloft] 25 mg PO DAILY@79909/10/21 03/27/24 Sertraline [Zoloft] 50 mg PO DAILY@79909/10/21 03/27/24 Zinc 50 mg PO DAILY@79909/10/21 03/27/24 Betamethasone Valerate [Luxiq 0.1%] 1 applic TOPICAL BID PRN 03/07/24 03/27/24 Chlorthalidone 100 mg PO DAILY@79903/07/24 03/27/24 Levothyroxine Sodium [Synthroid] 25 mcg PO AC-BRKFST@0603/07/24 03/27/24 Metoprolol Tartrate [Lopressor] 25 mg PO BID@08,199903/07/24 03/27/24 Potassium Chloride ER [K-Dur 20] 20 meq PO TID@0800,1400,199903/07/24 03/27/24 QUEtiapine FUMARATE [SEROquel] 200 mg PO DAILY@1200 03/07/24 03/27/24 QUEtiapine [SEROquel] 100 mg PO DAILY@0800 03/07/24 03/27/24 QUEtiapine [SEROquel] 600 mg PO HS@199903/07/24 03/27/24 Spironolactone [Aldactone] 50 mg PO DAILY@0800 03/07/24 03/27/24 levETIRAcetam [Keppra] 250 mg PO Q12HR@0800,199903/07/24 03/27/24 Ascorbic Acid [Vitamin C with Jade 1,000 mg PO DAILY@0800 03/27/24 03/27/24 Hips] Doxycycline Hyclate 100 mg PO BID@0800,199903/27/24 03/27/24 Silver Sulfadiazine [Silver 1 applic TOPICAL DAILY 03/27/24 03/27/24 Sulfadiazine 1%] Allergies Allergy/AdvReac Type Severity Reaction Status Date / Time No Known Allergies Allergy Verified 03/27/24 10:36 Review of Systems ROS Statement: Those systems with pertinent positive or pertinent negative responses have been documented in the HPI. ROS Other: All systems not noted in ROS Statement are negative. Past Medical History Past Medical History: Coronary Artery Disease (CAD), COPD, Dementia, GERD/R eflux, Hyperlipidemia, Hypertension, Seizure Disorder Additional Past Medical History / Comment(s): Mental delay, last seizure greater than 6 yrs ago. History of Any Multi-Drug Resistant Organisms: None Reported Past Surgical History: Unable to Obtain Past Anesthesia/Blood Transfusion Reactions: Unable to Obtain Past Psychological History: Bipolar, Schizophrenia Smoking Status: Former smoker Past Alcohol Use History: None Reported Past Drug Use History: None Reported - Past Family History Father History Unknown: Yes Mother History Unknown: Yes General Exam Limitations: no limitations General appearance: alert, in no apparent distress Head exam: Present: atraumatic, normocephalic Eye exam: Present: normal appearance, PERRL ENT exam: Present: normal exam Respiratory exam: Present: wheezes, rhonchi, decreased breath sounds. Absent: respiratory distress Cardiovascular Exam: Present: normal rhythm, tachycardia GI/Abdominal exam: Present: soft, distended. Absent: tenderness, guarding Extremities exam: Present: pedal edema Neurological exam: Present: alert, oriented X3 Psychiatric exam: Present: normal affect, normal mood Skin exam: Present: warm, dry, intact, pallor Course Vital Signs 03/27/24 03/27/24 03/27/24 08:17 08:25 08:58 Temperature 100.3 F H Pulse Rate 114 H 109 H Respiratory 24 20 22 Rate Blood Pressure 92/59 119/56 O2 Sat by Pulse 96 95 Oximetry 03/27/24 03/27/24 10:11 10:18 Temperature Pulse Rate 104 H Respiratory 20 Rate Blood Pressure 92/57 O2 Sat by Pulse 91 L 94 L Oximetry Medical Decision Making - Medical Decision Making Was pt. sent in by a medical professional or institution (DAKOTA Mota, PROFESSOR OF PHILOSOPHY, urgent c are, hospital, or long term...) When possible be specific @ -No Did you speak to anyone other than the patient for history (EMS, parent, family, police, friend...)? What history was obtained from this source @ -No Did you review nursing and triage notes (agree or disagree)? Why? @ -I reviewed and agree with nursing and triage notes Were old charts reviewed (outside hosp., previous admission, EMS record, old EKG, old radiological studies, urgent care reports/EKG's, long term records)? Report findings @ -No old charts were reviewed Differential Diagnosis (chest pain, altered mental status, abdominal pain women, abdominal pain men, vaginal bleeding, weakness, fever, dyspnea, syncope, headache, dizziness, GI bleed, back pain, seizure, CVA, palpatations, mental health, musculoskeletal)? @ -Not applicable EKG interpreted by me (3pts min.). @ -EKG: Sinus tachycardia rate of 115, PA interval 204, QRS duration 74, QTc [address] segment elevation. X-rays interpreted by me (1pt min.). @ -Chest x-ray negative for consolidated pneumonia, no pneumothorax CT interpreted by me (1pt min.). @ -None done U/S interpreted by me (1pt. min.). @ -None done What testing was considered but not performed or refused? (CT, X-rays, U/S, labs)? Why? @ -None What meds were considered but not given or refused? Why? @ -None Did you discuss the management of the patient with other professionals (professionals i.e. , PA, PROFESSOR OF PHILOSOPHY, lab, RT, psych nurse, social scientist, right of way maintenance supervisor, teacher, chief innovation officer, skilled nursing case manager)? Give summary @ -Dr. Leon Was smoking cessation discussed for >3mins.? @ -No Was critical care preformed (if so, how long)? @ -COPD exacerbation, hypoxia, critical care of 35 minutes Were there social determinants of health that impacted care today? How? (Homelessness, low income, unemployed, alcoholism, drug addiction, transportation, low edu. Level, literacy, decrease access to med. care, senior care, rehab)? @ -No Was there de-escalation of care discussed even if they declined (Discuss DNR or withdrawal of care, Hospice)? DNR status @ -No What co-morbidities impacted this encounter? (DM, HTN, Smoking, COPD, CAD, Cancer, CVA, ARF, Chemo, Hep., AIDS, mental health diagnosis, sleep apnea, morbid obesity)? @ -[COPD Was patient admitted / discharged? Hospital course, mention meds given and route, prescriptions, significant lab abnormalities, going to OR and other pe rtinent info. @ -73-year-old male with cough, fever, hypoxia. History of COPD. Patient given albuterol, Atrovent, steroids, started on antibiotics in the emergency department. Chest x-ray does not show consolidated pneumonia. Patient will be treated for COPD exacerbation. Admitted to Dr. Leon who is aware of the admission Undiagnosed new problem with uncertain prognosis? @ -No Drug Therapy requiring intensive monitoring for toxicity (Heparin, Nitro, Insulin, Cardizem)? @ -No Were any procedures done? @ -No Diagnosis/symptom? @ -COPD with hypoxia Acute, or Chronic, or Acute on Chronic? @ -Acute Uncomplicated (without systemic symptoms) or Complicated (systemic symptoms)? @ -Default Side effects of treatment? @ -No Exacerbation, Progression, or Severe Exacerbation? @ -No Poses a threat to life or bodily function? How? (Chest pain, [place], [place], pneumonia, PE, COPD, DKA, ARF, appy, cholecystitis, CVA, Diverticulitis, Homicidal, Suicidal, threat to staff... and all critical care pts) @yes respiratory failure - Lab Data Result diagrams: 03/27/24 08:32 03/27/24 08:32 Lab Results 03/27/24 03/27/24 03/27/24 Range/Units 08:32 08:32 08:32 WBC 12.4 H (3.8-10.6) k/uL RBC 3.98 L (4.30-5.90) m/uL Hgb 13.3 (13.0-17.5) gm/dL Hct 39.9 (39.0-53.0) % MCV 100.3 H (80.0-100.0) fL MCH 33.5 (25.0-35.0) pg MCHC 33.4 (31.0-37.0) g/dL RDW 12.6 (11.5-15.5) % Plt Count 285 (150-450) k/uL MPV 8.2 Neutrophils % 85 % Lymphocytes % 8 % Monocytes % 5 % Eosinophils % 0 % Basophils % 0 % Neutrophils # 10.6 H (1.3-7.7) k/uL Lymphocytes # 1.0 (1.0-4.8) k/uL Monocytes # 0.6 (0-1.0) k/uL Eosinophils # 0.0 (0-0.7) k/uL Basophils # 0.0 (0-0.2) k/uL PT 10.5 (10.0-12.5) sec INR 1.0 (<1.2) APTT 23.1 (22.0-30.0) sec Sodium 136 L (137-145) mmol/L Potassium 3.9 (3.5-5.1) mmol/L Chloride 99 (98-107) mmol/L Carbon Dioxide 32 H (22-30) mmol/L Anion Gap 5 mmol/L BUN 13 (9-20) mg/dL Creatinine 0.90 (0.66-1.25) mg/dL Est GFR (CKD-EPI)AfAm >90 (>60 ml/min/1.73 sqM) Est GFR (CKD-EPI)NonAf 86 (>60 ml/min/1.73 sqM) Glucose 116 H (74-99) mg/dL Plasma Lactic Acid Jake (0.7-2.0) mmol/L Calcium 8.8 (8.4-10.2) mg/dL Total Bilirubin 0.8 (0.2-1.3) mg/dL AST 34 (17-59) U/L ALT 33 (4-49) U/L Alkaline Phosphatase 97 (38-126) U/L NT-Pro-B Natriuret Pep 195 pg/mL Total Protein 6.9 (6.3-8.2) g/dL Albumin 3.8 (3.5-5.0) g/dL Influenza Type A (PCR) (Not Detectd) Influenza Type B (PCR) (Not Detectd) RSV (PCR) (Not Detectd) SARS-CoV-2 (PCR) (Not Detectd) 03/27/24 03/27/24 Range/Units 08:32 08:32 WBC (3.8-10.6) k/uL RBC (4.30-5.90) m/uL Hgb (13.0-17.5) gm/dL Hct (39.0-53.0) % MCV (80.0-100.0) fL MCH (25.0-35.0) pg MCHC (31.0-37.0) g/dL RDW (11.5-15.5) % Plt Count (150-450) k/uL MPV Neutrophils % % Lymphocytes % % Monocytes % % Eosinophils % % Basophils % % Neutrophils # (1.3-7.7) k/uL Lymphocytes # (1.0-4.8) k/uL Monocytes # (0-1.0) k/uL Eosinophils # (0-0.7) k/uL Basophils # (0-0.2) k/uL PT (10.0-12.5) sec INR (<1.2) APTT (22.0-30.0) sec Sodium (137-145) mmol/L Potassium (3.5-5.1) mmol/L Chloride (98-107) mmol/L Carbon Dioxide (22-30) mmol/L Anion Gap mmol/L BUN (9-20) mg/dL Creatinine (0.66-1.25) mg/dL Est GFR (CKD-EPI)AfAm (>60 ml/min/1.73 sqM) Est GFR (CKD-EPI)NonAf (>60 ml/min/1.73 sqM) Glucose (74-99) mg/dL Plasma Lactic Acid Jake 1.5 (0.7-2.0) mmol/L Calcium (8.4-10.2) mg/dL Total Bilirubin (0.2-1.3) mg/dL AST (17-59) U/L ALT (4-49) U/L Alkaline Phosphatase (38-126) U/L NT-Pro-B Natriuret Pep pg/mL Total Protein (6.3-8.2) g/dL Albumin (3.5-5.0) g/dL Influenza Type A (PCR) Not Detected (Not Detectd) Influenza Type B (PCR) Not Detected (Not Detectd) RSV (PCR) Not Detected (Not Detectd) SARS-CoV-2 (PCR) Not Detected (Not Detectd) Critical Care Time Critical Care Time: Yes Total Critical Care Time: 35 Disposition Clinical Impression: Acute exacerbation of chronic obstructive pulmonary disease Disposition: ADMITTED IP TO THIS HOSP Condition: Stable Is patient prescribed a controlled substance at d/c from ED?: No Referrals: Job Wiseman MD [Primary Care Provider] - 1-2 days Time of Disposition: 10:53
[2024-03-27 08:46] LABS: Basophils % (A) 0 %; Eosinophils % (A) 0 %; HCT 39.9 % (39.0-53.0); HGB 13.3 gm/dL (13.0-17.5); Lymphocytes % (A) 8 %; MCH 33.5 pg (25.0-35.0); MCHC 33.4 g/dL (31.0-37.0); MCV 100.3 fL (80.0-100.0); Mean Platelet Volume 8.2; Monocytes # (A) 0.6 k/uL (0-1.0); Monocytes % (A) 5 %; Neutrophils # (A) 10.6 k/uL (1.3-7.7); Neutrophils % (A) 85 %; Platelet Count 285 k/uL (150-450); RBC 3.98 m/uL (4.30-5.90); RDW 12.6 % (11.5-15.5); WBC 12.4 k/uL (3.8-10.6)
[2024-03-27 08:55] LABS: Partial Thromboplastin Time 23.1 sec (22.0-30.0); Prothrombin Time 10.5 sec (10.0-12.5)
[2024-03-27 09:06] LABS: ALT 33 U/L (4-49); AST 34 U/L (17-59); African American GFR (CKD) >90 (>60 ml/min/1.73 sqM); Albumin 3.8 g/dL (3.5-5.0); Alkaline Phosphatase 97 U/L (38-126); Anion Gap 5 mmol/L; Blood Urea Nitrogen 13 mg/dL (9-20); Calcium 8.8 mg/dL (8.4-10.2); Carbon Dioxide 32 mmol/L (22-30); Chloride 99 mmol/L (98-107); Glucose 116 mg/dL (74-99); Non-African American GFR(CKD) 86 (>60 ml/min/1.73 sqM); Potassium 3.9 mmol/L (3.5-5.1); Sodium 136 mmol/L (137-145); Total Bilirubin 0.8 mg/dL (0.2-1.3); Total Protein 6.9 g/dL (6.3-8.2)
--- NOTE | 2024-03-27 09:09 | XR ---
EXAMINATION TYPE: XR chest 2V DATE OF EXAM: 03/27/2024 8:56 AM COMPARISON: None. CLINICAL INDICATION: Male, 73 years old with history of difficulty breathing, TECHNIQUE: XR chest 2V view(s) obtained. FINDINGS: The heart size is normal. The pulmonary vasculature is normal. No suspicious consolidations evident.. IMPRESSION: 1. No acute pulmonary process. [facility], , 03/27/2024 9:06 AM
[2024-03-27 09:13] LABS: NT-Pro-B-Type Natriuretic Pept 195 pg/mL
[2024-03-27] MEDS: AZITHROMYCIN 500 MG in SODIUM CHLORIDE 0.9% 250 ML IVPB STA (10:13)
[2024-03-27] MEDS: ACETAMINOPHEN TAB 500 MG TAB PO STA (10:15)
[2024-03-27] MEDS ORDERED: IPRATROPIUM-ALBUTEROL 3 ML NEB INHALATION PRN (10:50)
[2024-03-27] MEDS ORDERED: ACETAMINOPHEN TAB 325 MG TAB PO PRN (10:50)
[2024-03-27] MEDS ORDERED: NALOXONE 0.4 MG/ML 1 ML VIAL IVP PRN (10:50)
[2024-03-27] MEDS ORDERED: LORazepam 1 MG TAB PO PRN (12:26)
[2024-03-27] MEDS: methylPREDNISolone SOD SUCCI 125 MG/2 ML VIAL IV SCH (13:08)
[2024-03-27] MEDS: IPRATROPIUM-ALBUTEROL 3 ML NEB INHALATION SCH (14:55)
--- NOTE | 2024-03-27 15:55 | P.HPIM ---
History of Present Illness H&P Date: 03/27/24 Chief Complaint: Short of breath This is a 73-year-old patient, resident of a snf. Limited historian. Can only answer simple questions. Patient was sent in for fever, hypoxia. Cough. Really cannot give me much details. Noted to be 91% on room air. Tac hycardia and fever on presentation. Has a cough. Short of breath. Review of systems: GEN.: Fever reported, tired EYES: None HEENT: None NECK: None RESPIRATORY: Cough short of breath CARDIOVASCULAR: None GASTROINTESTINAL: None GENITOURINARY: None MUSCULOSKELETAL: None LYMPHATICS: None HEMATOLOGICAL: None PSYCHIATRY: None NEUROLOGICAL: Forgetful Social history: [employer]. Has a legal guardian smokes a pack a day. Physical examination: VITAL SIGNS: 100.3, 114, 24, 92 x 59, 96% on 3 L GENERAL: BMI 38.7, sitting edge of the bed., Short of breath EYES: Pupils equal. Conjunctiva von l. HEENT: External appearance of nose and ears normal, oral cavity grossly normal. NECK: JVD not raised; masses not palpable. HEART: First and second heart sounds are normal; significant edema. LUNGS: Respiratory rate increased, diminished breath sound wheezing. ABDOMEN: Soft, distended, nontender, liver spleen not palpable, no masses palpable. PSYCH: [Patient can tell his name, answer simple questions.. MUSCULOSKELETAL:No Clubbing/cyanosis;muscles-grossly intact NEUROLOGICAL: Cranial nerves grossly intact; no facial asymmetry, power and sensation grossly intact. LYMPHATICS: No lymph nodes palpable in the axilla and neck INVESTIGATIONS, reviewed in the clinical context: March 27, 2024: White count 12.4 hemoglobin 13.3 platelets 285 sodium 136 potassium 3.9 creatinine 0.9 proBNP 195 Influenza type A, type B, RSV, COVID-19: Not detected EKG tracing personally reviewed by me-normal sinus rhythm. Rate 104 Chest x-ray film personally reviewed by me-left middle lobe infiltrate some on the right base. Assessment and plan: -Bilateral pneumonia. Suspect gram-negative organism. Causing hypoxia Ceftriaxone. Zithromax. -Sepsis Antibiotics -Acute COPD exacerbation in a current smoker DuoNeb every 4. Pulmicort nebulized 1 mg twice daily. -Acute hypoxic respiratory failure from COPD exacerbation pneumonia Oxygen supplement -Schizophrenia and bipolar Xanax. Seroquel. Zoloft -Hypercholesteremia Crestor -Hypothyroid Synthroid -Essential hypertension Lopressor. Chlorthalidone -Full code -Public guardian. Siri Rodriguez. [phone] Given the complexity and severity of patient's condition expect the patient to be in the hospital at least for 2 overnights Past Medical History Past Medical History: Coronary Artery Disease (CAD), COPD, Dementia, GERD/Reflux, Hyperlipidemia, Hypertension, Seizure Disorder Additional Past Medical History / Comment(s): Mental delay, last seizure greater than 6 yrs ago. History of Any Multi-Drug Resistant Organisms: None Reported Past Surgical History: Unable to Obtain Past Anesthesia/Blood Transfusion Reactions: Unable to Obtain Past Psychological History: Bipolar, Schizophrenia Smoking Status: Former smoker Past Alcohol Use History: None Reported Past Drug Use History: None Reported - Past Family History Father History Unknown: Yes Mother History Unknown: Yes Medications and Allergies Home Medications Medication Instructions Recorded Confirmed Type ALPRAZolam [Xanax] 1 mg PO BID@08,199909/10/21 03/27/24 History Cyanocobalamin (Vitamin B-12) 1,000 mcg PO DAILY@79909/10/21 03/27/24 History [Vitamin B-12] Ergocalciferol [Vitamin D2 (1250 1,250 mcg PO FR@79909/10/21 03/27/24 History Mcg = 53395 Iu)] Folic Acid 1 mg PO DAILY@79909/10/21 03/27/24 History Ibuprofen [Motrin] 800 mg PO Q8H PRN 09/10/21 03/27/24 History LORazepam [Ativan] 1 mg PO TID PRN 09/10/21 03/27/24 History Loratadine [Claritin] 10 mg PO DAILY@79909/10/21 03/27/24 History Rosuvastatin Calcium [Crestor] 5 mg PO HS@199909/10/21 03/27/24 History Sertraline [Zoloft] 25 mg PO DAILY@79909/10/21 03/27/24 History Sertraline [Zoloft] 50 mg PO DAILY@79909/10/21 03/27/24 History Zinc 50 mg PO DAILY@79909/10/21 03/27/24 History Betamethasone Valerate [Luxiq 0.1%] 1 applic TOPICAL BID PRN 03/07/24 03/27/24 History Chlorthalidone 100 mg PO DAILY@0800 03/07/24 03/27/24 History Levothyroxine Sodium [Synthroid] 25 mcg PO AC-BRKFST@0600 03/07/24 03/27/24 History Metoprolol Tartrate [Lopressor] 25 mg PO BID@08,199903/07/24 03/27/24 History Potassium Chloride ER [K-Dur 20] 20 meq PO TID@0800,1399,199903/07/24 03/27/24 History QUEtiapine FUMARATE [SEROquel] 200 mg PO DAILY@1200 03/07/24 03/27/24 History QUEtiapine [SEROquel] 100 mg PO DAILY@0800 03/07/24 03/27/24 History QUEtiapine [SEROquel] 600 mg PO HS@199903/07/24 03/27/24 History Spironolactone [Aldactone] 50 mg PO DAILY@0800 03/07/24 03/27/24 History levETIRAcetam [Keppra] 250 mg PO Q12HR@08,199903/07/24 03/27/24 History Ascorbic Acid [Vitamin C with Jade 1,000 mg PO DAILY@0800 03/27/24 03/27/24 History Hips] Doxycycline Hyclate 100 mg PO BID@08,199903/27/24 03/27/24 History Silver Sulfadiazine [Silver 1 applic TOPICAL DAILY 03/27/24 03/27/24 History Sulfadiazine 1%] Allergies Allergy/AdvReac Type Severity Reaction Status Date / Time No Known Allergies Allergy Verified 03/27/24 10:36 Physical Exam Vitals: Vital Signs Temp Pulse Resp BP Pulse Ox 03/27/24 15:06 88 03/27/24 14:58 89 03/27/24 11:46 98.3 F 101 H 18 104/74 95 03/27/24 10:18 94 L 03/27/24 10:11 104 H 20 92/57 91 L 03/27/24 08:58 109 H 22 119/56 95 03/27/24 08:25 20 03/27/24 08:17 100.3 F H 114 H 24 92/59 96 Intake and Output 03/27/24 03/27/24 03/27/24 06:59 14:59 22:59 Other: Weight 122.47 kg Results CBC & Chem 7: 03/27/24 08:32 03/27/24 08:32 Labs: Abnormal Lab Results - Last 24 Hours (Table) 03/27/24 03/27/24 Range/Units 08:32 08:32 WBC 12.4 H (3.8-10.6) k/uL RBC 3.98 L (4.30-5.90) m/uL MCV 100.3 H (80.0-100.0) fL Neutrophils # 10.6 H (1.3-7.7) k/uL Sodium 136 L (137-145) mmol/L Carbon Dioxide 32 H (22-30) mmol/L Glucose 116 H (74-99) mg/dL
[2024-03-27] MEDS: methylPREDNISolone SOD SUCCI 40 MG/ML 1 ML VIAL IV SCH (16:11)
[2024-03-27] MEDS: ENOXAPARIN 40 MG/0.4 ML SYRINGE SQ SCH (16:19)
[2024-03-27] MEDS: guaiFENesin 600 MG TABLET.ER PO SCH (19:25)
[2024-03-27] MEDS: levETIRAcetam 250 MG TAB PO SCH (20:06)
[2024-03-27] MEDS: QUEtiapine 200 MG TAB PO SCH (20:06)
[2024-03-27] MEDS: ALPRAZolam 1 MG TAB PO SCH (20:06)
[2024-03-27] MEDS: METOPROLOL TARTRATE 25 MG TAB PO SCH (20:06)
[2024-03-28] MEDS: LEVOTHYROXINE 25 MCG TAB PO SCH (05:47)
[2024-03-28] MEDS: FOLIC ACID 1 MG TAB PO SCH (09:18)
[2024-03-28] MEDS: ASCORBIC ACID 500 MG TAB PO SCH (09:19)
[2024-03-28] MEDS: CYANOCOBALAMIN 500 MCG TAB PO SCH (09:19)
[2024-03-28] MEDS: QUEtiapine 100 MG TAB PO SCH (09:28)
--- NOTE | 2024-03-28 14:43 | P.PN ---
Progress Note - Text Progress Note Date: 03/28/24 Chief Complaint: Short of breath This is a 73-year-old patient, resident of a custodial. Limited historian. Can only answer simple questions. Patient was sent in for fever, hypoxia. Cough. Really cannot give me much details. Noted to be 91% on room air. Tachycardia and fever on presentation. Has a cough. Short of breath. March 28: Breathing better. Decreased cough. Ate all his breakfast. Have the patient sit up on the recliner. Will be getting a shower. Changed to oral prednisone. Continue IV antibiotic. Patient states today he started smoking 2 years ago. Plan for discharge tomorrow. Continue bronchodilators. Active Medications Acetaminophen (Acetaminophen Tab 325 Mg Tab) 650 mg PO Q4HR PRN PRN Reason: Mild Pain or Fever > 100.5 Albuterol/Ipratropium (Ipratropium-Albuterol 3 Ml Neb) 3 ml INHALATION RT-Q2H PRN PRN Reason: Shortness Of Breath Or Wheezing Albuterol/Ipratropium (Ipratropium-Albuterol 3 Ml Neb) 3 ml INHALATION RT-QID [facility] Last Admin: 03/28/24 11:16 Dose: 3 ml Alprazolam (Alprazolam 1 Mg Tab) 1 mg PO BID@0800,1999 [facility] Last Admin: 03/28/24 09:18 Dose: 1 mg Ascorbic Acid (Ascorbic Acid 500 Mg Tab) 1,000 mg PO DAILY@0800 [facility] Last Admin: 03/28/24 09:19 Dose: 1,000 mg Cyanocobalamin (Cyanocobalamin 500 Mcg Tab) 1,000 mcg PO DAILY@0800 [facility] Last Admin: 03/28/24 09:19 Dose: 1,000 mcg Enoxaparin Sodium (Enoxaparin 40 Mg/0.4 Ml Syringe) 40 mg SQ DAILY [facility] Last Admin: 03/28/24 09:28 Dose: 40 mg Ergocalciferol (Ergocalciferol 1,250 Mcg (50,000 Iu) Capsule) 1,250 mcg PO FR@0800 [facility] Folic Acid (Folic Acid 1 Mg Tab) 1 mg PO DAILY@0800 [facility] Last Admin: 03/28/24 09:18 Dose: 1 mg Guaifenesin (Guaifenesin 600 Mg Tablet.Er) 600 mg PO QID [facility] Last Admin: 03/28/24 12:22 Dose: 600 mg Ceftriaxone Sodium 1 gm/ (Sodium Chloride) 50 mls @ 100 mls/hr IVPB Q24HR [facility]; Protocol Last Admin: 03/28/24 12:22 Dose: 100 mls/hr Levetiracetam (Levetiracetam 250 Mg Tab) 250 mg PO Q12HR@ [facility] Last Admin: 03/28/24 09:28 Dose: 250 mg Levothyroxine Sodium (Levothyroxine 25 Mcg Tab) 25 mcg PO AC-BRKFST@06 [facility] Last Admin: 03/28/24 05:47 Dose: 25 mcg Lorazepam (Lorazepam 1 Mg Tab) 1 mg PO TID PRN PRN Reason: Anxiety Methylprednisolone Sodium Succinate (Methylprednisolone Sod Succi 40 Mg/Ml 1 Ml Vial) 40 mg IV Q8HR [facility] Last Admin: 03/28/24 08:00 Dose: 40 mg Metoprolol Tartrate (Metoprolol Tartrate 25 Mg Tab) 25 mg PO BID@ [facility] Last Admin: 03/28/24 09:28 Dose: 25 mg Naloxone HCl (Naloxone 0.4 Mg/Ml 1 Ml Vial) 0.2 mg IVP Q2M PRN PRN Reason: Opioid Reversal Quetiapine Fumarate (Quetiapine 100 Mg Tab) 100 mg PO DAILY@799 [facility] Last Admin: 03/28/24 09:28 Dose: 100 mg Quetiapine Fumarate (Quetiapine 200 Mg Tab) 600 mg PO HS@1999 [facility] Last Admin: 03/27/24 20:06 Dose: 600 mg Social history: [employer]. Has a legal guardian smokes a pack a day. Physical examination: VITAL SIGNS: 97.9, 84, 18, 97 x 73, 93% room air GENERAL: BMI 38.7, sitting edge of the bed., Breathing better EYES: Pupils equal. Conjunctiva von l. HEENT: External appearance of nose and ears normal, oral cavity grossly normal. NECK: JVD not raised; masses not palpable. HEART: First and second heart sounds are normal; significant edema. LUNGS: Respiratory rate increased, diminished breath sound, no wheezing ABDOMEN: Soft, distended, nontender, liver spleen not palpable, no masses palpable. PSYCH: [Patient can tell his name, answer simple questions.. MUSCULOSKELETAL:No Clubbing/cyanosis;muscles-grossly intact INVESTIGATIONS, reviewed in the clinical context: March 27, 2024: White count 12.4 hemoglobin 13.3 platelets 285 sodium 136 potassium 3.9 creatinine 0.9 proBNP 195 Influenza type A, type B, RSV, COVID-19: Not detected EKG tracing personally reviewed by me-normal sinus rhythm. Rate 104 Chest x-ray film personally reviewed by me-left middle lobe infiltrate some on the right base. Assessment and plan: -Bilateral pneumonia. Suspect gram-negative organism. Causing hypoxia: Improv ing Ceftriaxone. Zithromax. -Sepsis Antibiotics -Acute COPD exacerbation in a current smoker: Improving DuoNeb every 4. Pulmicort nebulized 1 mg twice daily.. IV Solu-Medrol -Acute hypoxic respiratory failure from COPD exacerbation pneumonia Oxygen supplement -Schizophrenia and bipolar Xanax. Seroquel. Zoloft -Hypercholesteremia Crestor -Hypothyroid Synthroid -Essential hypertension Lopressor. Chlorthalidone -Full code -Public guardian. Siri Rodriguez. [phone] Improving. Continue current treatment plan. Up in chair. Past Medical History Past Medical History: Coronary Artery Disease (CAD), COPD, Dementia, GERD/Reflux, Hyperlipidemia, Hypertension, Seizure Disorder Additional Past Medical History / Comment(s): Mental delay, last seizure greater than 6 yrs ago. History of Any Multi-Drug Resistant Organisms: None Reported Past Surgical History: Unable to Obtain Past Anesthesia/Blood Transfusion Reactions: Unable to Obtain Past Psychological History: Bipolar, Schizophrenia Smoking Status: Former smoker Past Alcohol Use History: None Reported Past Drug Use History: None Reported
[2024-03-29 07:59] VITALS: BP 128/73; RESP 16; TEMP 98.2
[2024-03-29] MEDS: predniSONE 20 MG TAB PO SCH (08:51)
[2024-03-29 10:58] VITALS: PULSE 86
--- NOTE | 2024-03-29 17:09 | CA ---
Transthoracic Echo Report Name: Prudencio Cancino Age: 73 Gender: M : 1950 Exam Date: 03/29/2024 10:11 Exam Location: [facility] Ht (in): 70 Wt (lb): 270 Ordering Physician: Devin Leon MD Attending/Referring Phys: [employer]ics Systems Integration Specialist Sapna Lopez RDCS Procedure CPT: Indications: chf Cardiac Hx: Technical Quality: Fair Contrast 1: Total Dose (mL): Contrast 2: Total Dose (mL): MEASUREMENTS (Male / Female) Normal Values 2D ECHO LV Diastolic Diameter PLAX 4.5 cm 4.2 - 5.9 / 3.9 - 5.3 cm LV Systolic Diameter PLAX 2.5 cm IVS Diastolic Thickness 1.4 cm 0.6 - 1.0 / 0.6 - 0.9 cm LVPW Diastolic Thickness 1.3 cm 0.6 - 1.0 / 0.6 - 0.9 cm LV Relative Wall Thickness 0.6 RV Internal Dim ED PLAX 3.6 cm LA Volume 58.5 cm??? 18 - 58 / 22 - 52 cm??? LA Volume Index 23.3 cm???/m??? 16 - 28 cm???/m??? M-MODE Aortic Root Diameter MM 3.8 cm LA Systolic Diameter MM 3.3 cm LA Ao Ratio MM 0.9 AV Cusp Separation MM 1.5 cm DOPPLER AV Peak Velocity 254.4 cm/s AV Peak Gradient 25.9 mmHg AV Mean Velocity 184.2 cm/s AV Mean Gradient 15.0 mmHg AV Velocity Time Integral 56.1 cm AI Peak Velocity 412.6 cm/s AI Peak Gradient 68.1 mmHg AI Pressure Half Time 376.4 ms LVOT Peak Velocity 121.3 cm/s LVOT Peak Gradient 5.9 mmHg LVOT Velocity Time Integral 27.2 cm MV Area PHT 3.3 cm??? Mitral E Point Velocity 59.3 cm/s Mitral A Point Velocity 87.9 cm/s Mitral E to A Ratio 0.7 MV Deceleration Time 228.9 ms MV E' Velocity 4.6 cm/s Mitral E to MV E' Ratio 12.8 TR Peak Velocity 240.7 cm/s TR Peak Gradient 23.2 mmHg Right Ventricular Systolic Press 28.2 mmHg FINDINGS Left Ventricle Mildly increased left ventricular wall thickness. Left ventricular cavity size normal. Normal left ventricular systolic function with no obvious regional wall motion abnormalities. Left ventricular ejection fraction is estimated at 55-60 %. Grade 1 diastolic dysfunction. Right Ventricle Normal right ventricular size and function. Right Atrium Normal right atrial size. Left Atrium Normal left atrial size. Mitral Valve Structurally normal mitral valve. No mitral stenosis, regurgitation or prolapse. Aortic Valve Trileaflet aortic valve. No aortic stenosis. Mild to moderateaortic regurgitation. Tricuspid Valve Structurally normal tricuspid valve. Mild tricuspid regurgitation. Pulmonic Valve Structurally normal pulmonic valve. Pericardium No pericardial effusion. Aorta Normal size aortic root and proximal ascending aorta. CONCLUSIONS Normal LV function Mild to moderate regurgitation of the aortic valve Previewed by: Dr. German Islas MD (Electronically Signed) Final Date: 29 March 2024 17:08
--- NOTE | 2024-03-29 22:00 | P.DS ---
Providers Date of admission: 03/27/24 15:52 Expected date of discharge: 03/29/24 Attending physician: Devin Leon Primary care physician: [facility] Course: Chief Complaint: Short of breath This is a 73-year-old patient, resident of a senior living. Limited historian. Can only answer simple questions. Patient was sent in for fever, hypoxia. Cough. Really cannot give me much details. Noted to be 91% on room air. Tachycardia and fever on presentation. Has a cough. Short of breath. March 28: Breathing better. Decreased cough. Ate all his breakfast. Have the patient sit up on the recliner. Will be getting a shower. Changed to oral prednisone. Continue IV antibiotic. Patient states today he started smoking 2 years ago. Plan for discharge tomorrow. Continue bronchodilators. March 29: Breathing much improved. No cough. Will be discharged on Symbicort. 2 more days of Ceftin. Eating well Social history: Sensitive [employer] retirement. Has a legal guardian smokes a pack a day. Physical examination: VITAL SIGNS: 98.2, 85, 16, 128 x 73, 94% on 2 L GENERAL: Comfortable EYES: Pupils equal. Conjunctiva von l. HEENT: External appearance of nose and ears normal, oral cavity grossly normal. NECK: JVD not raised; masses not palpable. HEART: First and second heart sounds are normal; significant edema. LUNGS: Respiratory rate normal, diminished breath sound, ABDOMEN: Soft, distended, nontender, liver spleen not palpable, no masses palpable. PSYCH: [Patient can tell his name, answer simple questions.. MUSCULOSKELETAL:No Clubbing/cyanosis;muscles-grossly intact INVESTIGATIONS, reviewed in the clinical context: March 27, 2024: White count 12.4 hemoglobin 13.3 platelets 285 sodium 136 potassium 3.9 creatinine 0.9 proBNP 195 Influenza type A, type B, RSV, COVID-19: Not detected EKG tracing personally reviewed by me-normal sinus rhythm. Rate 104 Chest x-ray film personally reviewed by me-left middle lobe infiltrate some on the right base. Assessment and plan: -Bilateral pneumonia. Suspect gram-negative organism. Causing hypoxia: Improving Ceftriaxone. Zithromax. Discharged on Ceftin for 2 days -Sepsis Antibiotics -Acute COPD exacerbation in a current smoker: Improving DuoNeb every 4. Pulmicort nebulized 1 mg twice daily.. IV Solu-Medrol Stop prednisone. Discharged on Symbicort -Acute hypoxic respiratory failure from COPD exacerbation pneumonia: Improved Oxygen supplement -Schizophrenia and bipolar Xanax. Seroquel. Zoloft -Hypercholesteremia Crestor -Hypothyroid Synthroid -Essential hypertension Lopressor. Chlorthalidone -Full code -Public guardian. Siri Rodriguez. [phone] Disposition: [facility] Past Medical History Past Medical History: Coronary Artery Disease (CAD), COPD, Dementia, GERD/Reflux, Hyperlipidemia, Hypertension, Seizure Disorder Additional Past Medical History / Comment(s): Mental delay, last seizure greater than 6 yrs ago. History of Any Multi-Drug Resistant Organisms: None Reported Past Surgical History: Unable to Obtain Past Anesthesia/Blood Transfusion Reactions: Unable to Obtain Past Psychological History: Bipolar, Schizophrenia Smoking Status: Former smoker Past Alcohol Use History: None Reported Past Drug Use History: None Reported Plan - Discharge Summary Discharge Rx Participant: Yes New Discharge Prescriptions: New Budesonide/Formoterol Fumarate [Symbicort 80-4.5 Mcg Inhaler] 1 puff INHALATION BID #1 each cefUROXime axetiL [Ceftin] 500 mg PO BID 1 Days #4 tab Continue Ergocalciferol [Vitamin D2 (1250 Mcg = 69002 Iu)] 1,250 mcg PO FR@0800 Cyanocobalamin (Vitamin B-12) [Vitamin B-12] 1,000 mcg PO DAILY@0800 Sertraline [Zoloft] 25 mg PO DAILY@0800 LORazepam [Ativan] 1 mg PO TID PRN PRN Reason: Anxiety Ibuprofen [Motrin] 800 mg PO Q8H PRN PRN Reason: Pain Folic Acid 1 mg PO DAILY@0800 ALPRAZolam [Xanax] 1 mg PO BID@0800,1999 levETIRAcetam [Keppra] 250 mg PO Q12HR@0800,1999 Silver Sulfadiazine [Silver Sulfadiazine 1%] 1 applic TOPICAL DAILY Sertraline [Zoloft] 50 mg PO DAILY@0800 Rosuvastatin Calcium [Crestor] 5 mg PO HS@2000 Levothyroxine Sodium [Synthroid] 25 mcg PO AC-BRKFST@0600 Chlorthalidone 100 mg PO DAILY@0800 Potassium Chloride ER [K-Dur 20] 20 meq PO TID@0800,1399,1999 Betamethasone Valerate [Luxiq 0.1%] 1 applic TOPICAL BID PRN PRN Reason: Skin Irritation Metoprolol Tartrate [Lopressor] 25 mg PO BID@08,1999 QUEtiapine [SEROquel] 600 mg PO HS@1999 QUEtiapine [SEROquel] 100 mg PO DAILY@0800 QUEtiapine FUMARATE [SEROquel] 200 mg PO DAILY@1200 Spironolactone [Aldactone] 50 mg PO DAILY@0800 Ascorbic Acid [Vitamin C with Jade Hips] 1,000 mg PO DAILY@0800 Discontinued Zinc 50 mg PO DAILY@0800 Doxycycline Hyclate 100 mg PO BID@08,1999 Loratadine [Claritin] 10 mg PO DAILY@0800 Discharge Medication List ALPRAZolam [Xanax] 1 mg PO BID@08,199909/10/21 [History] Cyanocobalamin (Vitamin B-12) [Vitamin B-12] 1,000 mcg PO DAILY@0800 09/10/21 [History] Ergocalciferol [Vitamin D2 (1250 Mcg = 48124 Iu)] 1,250 mcg PO FR@0800 09/10/21 [History] Folic Acid 1 mg PO DAILY@0800 09/10/21 [History] Ibuprofen [Motrin] 800 mg PO Q8H PRN 09/10/21 [History] LORazepam [Ativan] 1 mg PO TID PRN 09/10/21 [History] Rosuvastatin Calcium [Crestor] 5 mg PO HS@199909/10/21 [History] Sertraline [Zoloft] 25 mg PO DAILY@0809/10/21 [History] Sertraline [Zoloft] 50 mg PO DAILY@0809/10/21 [History] Betamethasone Valerate [Luxiq 0.1%] 1 applic TOPICAL BID PRN 03/07/24 [History] Chlorthalidone 100 mg PO DAILY@0803/07/24 [History] Levothyroxine Sodium [Synthroid] 25 mcg PO AC-BRKFST@0600 03/07/24 [History] Metoprolol Tartrate [Lopressor] 25 mg PO BID@08,199903/07/24 [History] Potassium Chloride ER [K-Dur 20] 20 meq PO TID@0800,1400,199903/07/24 [History] QUEtiapine FUMARATE [SEROquel] 200 mg PO DAILY@1200 03/07/24 [History] QUEtiapine [SEROquel] 100 mg PO DAILY@0800 03/07/24 [History] QUEtiapine [SEROquel] 600 mg PO HS@199903/07/24 [History] Spironolactone [Aldactone] 50 mg PO DAILY@0800 03/07/24 [History] levETIRAcetam [Keppra] 250 mg PO Q12HR@0800,199903/07/24 [History] Ascorbic Acid [Vitamin C with Jade Hips] 1,000 mg PO DAILY@0800 03/27/24 [History] Silver Sulfadiazine [Silver Sulfadiazine 1%] 1 applic TOPICAL DAILY 03/27/24 [History] Budesonide/Formoterol Fumarate [Symbicort 80-4.5 Mcg Inhaler] 1 puff INHALATION BID #1 each 03/29/24 [Rx] cefUROXime axetiL [Ceftin] 500 mg PO BID 1 Days #4 tab 03/29/24 [Rx] Follow up Appointment(s)/Referral(s): Job Wiseman MD [Primary Care Provider] - 1-2 days Patient Instructions/Handouts: COPD (Chronic Obstructive Pulmonary Disease) (DC), How Your Lungs Work (DC), Chronic Lung Disease and Infection Prevention (DC), Nutrition Guidelines for People with COPD (DC) Discharge Disposition: HOME WITH HOME HEALTH SERVICES
[2024-03-31] MEDS ORDERED: ERGOCALCIFEROL 1,250 MCG (50,000 IU) CAPSULE PO SCH (08:00)
== END 2024-03-29 13:49 | disposition home health service (06) | DRG 871 ==
LOC: EC 08:16 → 6NMEDSUR 10:50 → OBSVTOIN 15:52 → 6NMEDSUR 17:17
PROVIDERS: ADMIT Hospitalist; ATTEND Hospitalist
DX: A41.50 Gram-negative sepsis, unspecified (principal); J15.69 Pneumonia due to other Gram-negative bacteria; J96.01 Acute respiratory failure with hypoxia; J44.1 Chronic obstructive pulmonary disease with (acute) exacerbation; F03.93 Unspecified dementia, unspecified severity, with mood disturbance; J44.0 Chronic obstructive pulmonary disease with (acute) lower respiratory infection; F20.9 Schizophrenia, unspecified; F31.9 Bipolar disorder, unspecified; G40.909 Epilepsy, unspecified, not intractable, without status epilepticus; E03.9 Hypothyroidism, unspecified; I10 Essential (primary) hypertension; F17.210 Nicotine dependence, cigarettes, uncomplicated; E78.00 Pure hypercholesterolemia, unspecified; I25.10 Atherosclerotic heart disease of native coronary artery without angina pectoris; K21.9 Gastro-esophageal reflux disease without esophagitis; Z11.52 Encounter for screening for COVID-19; Z79.51 Long term (current) use of inhaled steroids; Z79.890 Hormone replacement therapy
CPT/HCPCS: 36415; 71046; 80053; 83605; 83880; 85025; 85610; 85730; 87040; 87636; 93005; 93306; 94640; 96361; 96365; 96368; 96372; 96375; 99291

== ENCOUNTER 2024-05-01 20:56 | Inpatient (IN) | payer MEDICARE, OTHER ==
[2024-05-01] MEDS: IPRATROPIUM-ALBUTEROL 3 ML NEB INHALATION STA (22:05)
--- NOTE | 2024-05-01 22:09 | ED ---
SOB HPI - General Chief Complaint: Shortness of Breath Stated Complaint: Aspiration Time Seen by Provider: 05/01/24 21:11 Source: patient, EMS, RN notes reviewed Mode of arrival: EMS Limitations: no limitations - History of Present Illness Initial Comments: 73-year-old male presents emergency department complaint of dyspnea. Patient was sent in from [facility] after patient was taking his nighttime medications started coughing, vomited and possibly aspirated patient had some hypoxia. Patient does have a swelling of his legs but is more chronic. Patient does have a history of COPD noted to have some wheezing. Patient did have some improvement has no complaints at this time. Patient denies any chest pain. - Related Data Home Medications Medication Instructions Recorded Confirmed ALPRAZolam [Xanax] 1 mg PO BID@08,199909/10/21 03/27/24 Cyanocobalamin (Vitamin B-12) 1,000 mcg PO DAILY@79909/10/21 03/27/24 [Vitamin B-12] Ergocalciferol [Vitamin D2 (1250 1,250 mcg PO FR@79909/10/21 03/27/24 Mcg = 01555 Iu)] Folic Acid 1 mg PO DAILY@0809/10/21 03/27/24 Ibuprofen [Motrin] 800 mg PO Q8H PRN 09/10/21 03/27/24 LORazepam [Ativan] 1 mg PO TID PRN 09/10/21 03/27/24 Rosuvastatin Calcium [Crestor] 5 mg PO HS@199909/10/21 03/27/24 Sertraline [Zoloft] 25 mg PO DAILY@79909/10/21 03/27/24 Sertraline [Zoloft] 50 mg PO DAILY@0809/10/21 03/27/24 Betamethasone Valerate [Luxiq 0.1%] 1 applic TOPICAL BID PRN 03/07/24 03/27/24 Chlorthalidone 100 mg PO DAILY@79903/07/24 03/27/24 Levothyroxine Sodium [Synthroid] 25 mcg PO AC-BRKFST@0603/07/24 03/27/24 Metoprolol Tartrate [Lopressor] 25 mg PO BID@08,199903/07/24 03/27/24 Potassium Chloride ER [K-Dur 20] 20 meq PO TID@0800,1400,199903/07/24 03/27/24 QUEtiapine FUMARATE [SEROquel] 200 mg PO DAILY@1200 03/07/24 03/27/24 QUEtiapine [SEROquel] 100 mg PO DAILY@0800 03/07/24 03/27/24 QUEtiapine [SEROquel] 600 mg PO HS@199903/07/24 03/27/24 Spironolactone [Aldactone] 50 mg PO DAILY@0800 03/07/24 03/27/24 levETIRAcetam [Keppra] 250 mg PO Q12HR@0800,199903/07/24 03/27/24 Ascorbic Acid [Vitamin C with Jade 1,000 mg PO DAILY@0800 03/27/24 03/27/24 Hips] Silver Sulfadiazine [Silver 1 applic TOPICAL DAILY 03/27/24 03/27/24 Sulfadiazine 1%] Previous Rx's Medication Instructions Recorded Budesonide/Formoterol Fumarate 1 puff INHALATION BID #1 each 03/29/24 [Symbicort 80-4.5 Mcg Inhaler] cefuroxime axetiL [Ceftin] 500 mg PO BID 1 Days #4 tab 03/29/24 Allergies Allergy/AdvReac Type Severity Reaction Status Date / Time No Known Allergies Allergy Verified 03/27/24 10:36 Review of Systems ROS Statement: Those systems with pertinent positive or pertinent negative responses have been documented in the HPI. ROS Other: All systems not noted in ROS Statement are negative. Past Medical History Past Medical History: Coronary Artery Disease (CAD), COPD, Dementia, GERD/Reflux, Hyperlipidemia, Hypertension, Seizure Disorder Additional Past Medical History / Comment(s): Mental delay, last seizure greater than 6 yrs ago. History of Any Multi-Drug Resistant Organisms: None Reported Past Surgical History: Unable to Obtain Past Anesthesia/Blood Transfusion Reactions: Unable to Obtain Past Psychological History: Bipolar, Schizophrenia Smoking Status: Former smoker Past Alcohol Use History: None Reported Past Drug Use History: None Reported - Past Family History Father History Unknown: Yes Mother History Unknown: Yes General Exam Limitations: no limitations General appearance: alert, in no apparent distress Head exam: Present: atraumatic, normocephalic, normal inspection Eye exam: Present: normal appearance, PERRL, EOMI. Absent: scleral icterus, conjunctival injection, periorbital swelling ENT exam: Present: normal exam, mucous membranes moist Neck exam: Present: normal inspection. Absent: tenderness, meningismus, lymphadenopathy Respiratory exam: Present: wheezes, rhonchi. Absent: normal lung sounds bilaterally, respiratory distress, rales, stridor Cardiovascular Exam: Present: regular rate, normal rhythm, normal heart sounds. Absent: systolic murmur, diastolic murmur, rubs, gallop, clicks GI/Abdominal exam: Present: soft, normal bowel sounds. Absent: distended, tenderness, guarding, rebound, rigid Course Vital Signs 05/01/24 05/01/24 05/01/24 21:00 22:00 22:05 Temperature 98.1 F Pulse Rate 98 128 H 126 H Respiratory 20 38 H Rate Blood Pressure 133/79 136/108 O2 Sat by Pulse 93 L 86 L Oximetry Fraction of Inspired Oxygen (FIO2) 05/01/24 05/01/24 05/01/24 22:15 22:40 22:43 Temperature 101.6 F H Pulse Rate 128 H 140 H Respiratory 45 H Rate Blood Pressure 137/91 O2 Sat by Pulse Oximetry Fraction of 40 Inspired Oxygen (FIO2) 05/01/24 05/01/24 05/02/24 22:55 23:44 00:04 Temperature 101.6 F H 101.6 F H Pulse Rate 140 H 137 H Respiratory 22 32 H Rate Blood Pressure 83/53 105/63 O2 Sat by Pulse 98 97 Oximetry Fraction of 60 Inspired Oxygen (FIO2) 05/02/24 00:30 Temperature 101.3 F H Pulse Rate 122 H Respiratory 20 Rate Blood Pressure O2 Sat by Pulse 93 L Oximetry Fraction of Inspired Oxygen (FIO2) Procedures - Sepsis Sepsis Focused Exam #1 Time Sepsis Criteria Met: 23:30 Sepsis Focused Exam Date: 05/02/24 Sepsis Focused Exam Time: 01:21 Sepsis Focused Exam Complete: Yes Vital Signs & RN Notes Reviewed: Yes Capillary Refill: < 2 Seconds: Fingers, Toes Peripheral Pulses: Weak: Posterior Tibialis (R), Posterior Tibialis (L), Dorsalis Pedis (R), Dorsalis Pedis (L), Normal: Radial (R), Radial (L) Skin Color: Normal for Patient Respiratory Exam: wheezes, rhonchi Cardiovascular Exam: tachycardia Medical Decision Making - Medical Decision Making Was pt. sent in by a medical professional or institution (, DAK[place], SENIOR PROGRAM MANAGER, urgent care, hospital, or long-term...) When possible be specific @ -No Did you speak to anyone other than the patient for history (EMS, parent, family, police, friend...)? What history was obtained from this source @ -No Did you review nursing and triage notes (agree or disagree)? Why? @ -I reviewed and agree with nursing and triage notes Were old charts reviewed (outside hosp., previous admission, EMS record, old EKG, old radiological studies, urgent care reports/EKG's, long-term records)? Report findings @ -Reviewed recent inpatient stay, echocardiogram, cardiology evaluation and pulmonary evaluation Differential Diagnosis (chest pain, altered mental status, abdominal pain women, abdominal pain men, vaginal bleeding, weakness, fever, dyspnea, syncope, headache, dizziness, GI bleed, back pain, seizure, CVA, palpatations, mental health, musculoskeletal)? @ -Differential Dyspnea: Coronary syndrome, arrhythmia, tamponade, asthma, COPD, pulmonary embolism, pneumonia, pneumothorax, pulmonary effusion, anaphylaxis, diabetic ketoacidosis, flailed chest, pulmonary contusion, diaphragmatic rupture, anemia, neuromus cular, this is not meant to be an all-inclusive list. EKG interpreted by me (3pts min.). @ -As above X-rays interpreted by me (1pt min.). @ -Chest x-ray shows COPD changes, possible early infiltrate CT interpreted by me (1pt min.). @ -None done U/S interpreted by me (1pt. min.). @ -None done What testing was considered but not performed or refused? (CT, X-rays, U/S, labs)? Why? @ -None What meds were considered but not given or refused? Why? @ -None Did you discuss the management of the patient with other professionals (professionals i.e. DAKOTA Mota, SENIOR PROGRAM MANAGER, lab, RT, psych nurse, social service worker, flight crew scheduler, teacher, detention officer, case therapist)? Give summary @ -Dr. Leon for admission Was smoking cessation discussed for >3mins.? @ -No Was critical care preformed (if so, how long)? @35 minutes Were there social determinants of health that impacted care today? How? (Homelessness, low income, unemployed, alcoholism, drug addiction, transportation, low edu. Level, literacy, decrease access to med. care, custodial, rehab)? @ -No Was there de-escalation of care discussed even if they declined (Discuss DNR or withdrawal of care, Hospice)? DNR status @ -No What co-morbidities impacted this encounter? (DM, HTN, Smoking, COPD, CAD, Cancer, CVA, ARF, Chemo, Hep., AIDS, mental health diagnosis, sleep apnea, morbid obesity)? @ -COPD Was patient admitted / discharged? Hospital course, mention meds given and route, prescriptions, significant lab abnormalities, going to OR and other pertinent info. @ -Admitted patient presented for increasing dyspnea possible aspiration patient was found to be tachycardic, hypoxic in mid 80s patient was given DuoNeb treatment with minimal improvement. Patient had increasing tachypnea and tachycardia patient was placed on BiPAP patient found to have significant le ukocytosis, lactic acidosis started on dual antibiotic therapy along with additional Flagyl dose concerns for aspiration patient was given Zofran for his fever. Patient will be admitted blood cultures were drawn. Patient did receive fluid bolus. Undiagnosed new problem with uncertain prognosis? @ -No Drug Therapy requiring intensive monitoring for toxicity (Heparin, Nitro, Insulin, Cardizem)? @ -No Were any procedures done? @ -No Diagnosis/symptom? @ -[Pneumonia, COPD exacerbation, acute hypoxic respiratory failure Acute, or Chronic, or Acute on Chronic? @ -Acute Uncomplicated (without systemic symptoms) or Complicated (systemic symptoms)? @ -Complicated Side effects of treatment? @ -No Exacerbation, Progression, or Severe Exacerbation? @ -No Poses a threat to life or bodily function? How? (Chest pain, [place], [place], pneumonia, PE, COPD, DKA, ARF, appy, cholecystitis, CVA, Diverticulitis, Homicidal, Suicidal, threat to staff... and all critical care pts) @ -Yes pneumonia, possible sepsis endorgan failure - Lab Data Result diagrams: 05/01/24 22:40 05/01/24 22:40 Lab Results 05/01/24 05/01/24 05/01/24 Range/Units 22:40 22:40 22:40 WBC 16.1 H (3.8-10.6) k/uL RBC 4.26 L (4.30-5.90) m/uL Hgb 14.5 (13.0-17.5) gm/dL Hct 42.8 (39.0-53.0) % MCV 100.5 H (80.0-100.0) fL MCH 34.2 (25.0-35.0) pg MCHC 34.0 (31.0-37.0) g/dL RDW 12.6 (11.5-15.5) % Plt Count 250 (150-450) k/uL MPV 8.1 Neutrophils % 76 % Lymphocytes % 19 % Monocytes % 4 % Eosinophils % 1 % Basophils % 0 % Neutrophils # 12.2 H (1.3-7.7) k/uL Lymphocytes # 3.0 (1.0-4.8) k/uL Monocytes # 0.6 (0-1.0) k/uL Eosinophils # 0.1 (0-0.7) k/uL Basophils # 0.1 (0-0.2) k/uL PT 10.3 (10.0-12.5) sec INR 0.9 (<1.2) APTT 22.8 (22.0-30.0) sec Sodium 135 L (137-145) mmol/L Potassium 4.1 (3.5-5.1) mmol/L Chloride 97 L (98-107) mmol/L Carbon Dioxide 32 H (22-30) mmol/L Anion Gap 6 mmol/L BUN 11 (9-20) mg/dL Creatinine 0.87 (0.66-1.25) mg/dL Est GFR (CKD-EPI)AfAm >90 (>60 ml/min/1.73 sqM) Est GFR (CKD-EPI)NonAf 87 (>60 ml/min/1.73 sqM) Glucose 126 H (74-99) mg/dL Lactic Ac Sepsis Rflx Plasma Lactic Acid Jake (0.7-2.0) mmol/L Calcium 8.7 (8.4-10.2) mg/dL Magnesium 1.8 (1.6-2.3) mg/dL Total Bilirubin 1.2 (0.2-1.3) mg/dL AST 42 (17-59) U/L ALT 40 (4-49) U/L Alkaline Phosphatase 94 (38-126) U/L Troponin I (0.000-0.034) ng/mL NT-Pro-B Natriuret Pep 53 pg/mL Total Protein 7.7 (6.3-8.2) g/dL Albumin 4.5 (3.5-5.0) g/dL 05/01/24 05/01/24 05/01/24 Range/Units 22:40 22:40 23:12 WBC (3.8-10.6) k/uL RBC (4.30-5.90) m/uL Hgb (13.0-17.5) gm/dL Hct (39.0-53.0) % MCV (80.0-100.0) fL MCH (25.0-35.0) pg MCHC (31.0-37.0) g/dL RDW (11.5-15.5) % Plt Count (150-450) k/uL MPV Neutrophils % % Lymphocytes % % Monocytes % % Eosinophils % % Basophils % % Neutrophils # (1.3-7.7) k/uL Lymphocytes # (1.0-4.8) k/uL Monocytes # (0-1.0) k/uL Eosinophils # (0-0.7) k/uL Basophils # (0-0.2) k/uL PT (10.0-12.5) sec INR (<1.2) APTT (22.0-30.0) sec Sodium (137-145) mmol/L Potassium (3.5-5.1) mmol/L Chloride (98-107) mmol/L Carbon Dioxide (22-30) mmol/L Anion Gap mmol/L BUN (9-20) mg/dL Creatinine (0.66-1.25) mg/dL Est GFR (CKD-EPI)AfAm (>60 ml/min/1.73 sqM) Est GFR (CKD-EPI)NonAf (>60 ml/min/1.73 sqM) Glucose (74-99) mg/dL Lactic Ac Sepsis Rflx Y Plasma Lactic Acid Jake 4.0 H* (0.7-2.0) mmol/L Calcium (8.4-10.2) mg/dL Magnesium (1.6-2.3) mg/dL Total Bilirubin (0.2-1.3) mg/dL AST (17-59) U/L ALT (4-49) U/L Alkaline Phosphatase (38-126) U/L Troponin I <0.012 (0.000-0.034) ng/mL NT-Pro-B Natriuret Pep pg/mL Total Protein (6.3-8.2) g/dL Albumin (3.5-5.0) g/dL - EKG Data -: EKG Interpreted by Me EKG Comments: EKG performed at 21: 18 sinus rhythm rate of 91 RI 187 QRS 75 QT/QTc 335/384 Critical Care Time Critical Care Time: Yes Total Critical Care Time: 35 Disposition Clinical Impression: Pneumonia, Acute exacerbation of chronic obstructive pulmonary disease, Acute hypoxic respiratory failure Disposition: ADMITTED IP TO THIS HOSP Condition: Poor Referrals: Job Wiseman MD [Primary Care Provider] - 1-2 days Time of Disposition: 01:07
[2024-05-01 22:55] LABS: Basophils # (A) 0.1 k/uL (0-0.2); Basophils % (A) 0 %; Eosinophils # (A) 0.1 k/uL (0-0.7); Eosinophils % (A) 1 %; HCT 42.8 % (39.0-53.0); HGB 14.5 gm/dL (13.0-17.5); Lymphocytes % (A) 19 %; MCH 34.2 pg (25.0-35.0); MCV 100.5 fL (80.0-100.0); Mean Platelet Volume 8.1; Monocytes # (A) 0.6 k/uL (0-1.0); Monocytes % (A) 4 %; Neutrophils # (A) 12.2 k/uL (1.3-7.7); Neutrophils % (A) 76 %; Platelet Count 250 k/uL (150-450); RBC 4.26 m/uL (4.30-5.90); RDW 12.6 % (11.5-15.5); WBC 16.1 k/uL (3.8-10.6)
[2024-05-01] MEDS: methylPREDNISolone SOD SUCCI 125 MG/2 ML VIAL IV STA (22:55)
[2024-05-01] MEDS: ACETAMINOPHEN IV (For NPO) 1,000 MG in EMPTY BAG 1 BAG IVPB STA (22:59)
[2024-05-01 23:04] LABS: ALT 40 U/L (4-49); AST 42 U/L (17-59); African American GFR (CKD) >90 (>60 ml/min/1.73 sqM); Albumin 4.5 g/dL (3.5-5.0); Alkaline Phosphatase 94 U/L (38-126); Anion Gap 6 mmol/L; Blood Urea Nitrogen 11 mg/dL (9-20); Calcium 8.7 mg/dL (8.4-10.2); Carbon Dioxide 32 mmol/L (22-30); Chloride 97 mmol/L (98-107); Glucose 126 mg/dL (74-99); Magnesium 1.8 mg/dL (1.6-2.3); Non-African American GFR(CKD) 87 (>60 ml/min/1.73 sqM); Sodium 135 mmol/L (137-145); Total Bilirubin 1.2 mg/dL (0.2-1.3); Total Protein 7.7 g/dL (6.3-8.2)
[2024-05-01 23:10] LABS: Potassium 4.1 mmol/L (3.5-5.1)
[2024-05-01 23:13] LABS: NT-Pro-B-Type Natriuretic Pept 53 pg/mL
[2024-05-01] MEDS: SODIUM CHLORIDE 0.9% 500 ML 500 ML IV ONE (23:42)
[2024-05-01 23:44] LABS: INR 0.9 (<1.2); Partial Thromboplastin Time 22.8 sec (22.0-30.0); Prothrombin Time 10.3 sec (10.0-12.5)
[2024-05-01] MEDS: SODIUM CHLORIDE 0.9% 2,000 ML IV ONE (23:51)
[2024-05-02] MEDS: AZITHROMYCIN 500 MG in SODIUM CHLORIDE 0.9% 250 ML IVPB STA (00:32)
--- NOTE | 2024-05-02 01:01 | XR ---
EXAM: XR Chest, 1 View CLINICAL HISTORY: ITS.REASON XR Reason: difficulty breathing TECHNIQUE: Frontal view of the chest. COMPARISON: No relevant prior studies available. FINDINGS: Lungs: Unremarkable. No consolidation. Pleural space: Unremarkable. No pneumothorax. Heart: Cardiomegaly. Mediastinum: Unremarkable. Normal mediastinal contour. Bones/joints: Unremarkable. No acute fracture. IMPRESSION: No acute findings in the chest.
[2024-05-02] MEDS ORDERED: IPRATROPIUM-ALBUTEROL 3 ML NEB INHALATION PRN (01:07)
[2024-05-02] MEDS ORDERED: PNEUMONIA PROTOCOL UTILIZED 1 EACH MISC PO PRN (01:07)
[2024-05-02] MEDS ORDERED: ACETAMINOPHEN IV (For NPO) 1,000 MG in EMPTY BAG 1 BAG IVPB PRN (01:08)
[2024-05-02] MEDS: metroNIDAZOLE-NS PMX 500 MG in SALINE 1 100ML.BAG IVPB SCH (01:35)
[2024-05-02] MEDS: SODIUM CHLORIDE 0.9% 1,000 ML IV SCH (03:49)
--- NOTE | 2024-05-02 05:22 | P.CNPUL ---
History of Present Illness Consult date: 05/02/24 Requesting physician: Ivna España Chief complaint: Respiratory distress History of present illness: Patient is a 73-year-old male with past medical history significant for COPD, developmental delay, bipolar/schizophrenia, hypothyroidism, hypertension, hyperlipidemia. Patient's is a very poor historian, I am unsure of his baseline mentation. He has reportedly has a developmental delay and lives at an adult foster care facility. I am told that the patient was sent in for a witnessed aspiration on medication. He was in respiratory distress on arrival. He was placed on BiPAP in the ED. Initial chest x-ray does not show any focal infiltrates or evidence of aspiration pneumonitis. He did have a high fever of unknown origin. Pancultures are pending. Patient was placed empirically on antibiotics. CBC remarkable for leukocytosis. WBC count 16.1. Tmax 101.6 F. Tachycardic. Tachypneic on arrival. Meeting SIRS criteria. CMP on arrival: Sodium 135, potassium 4.1, chloride 97, serum bicarb 32, BUN 11, creatinine 0.87, glucose 126. Troponin is less than 0.012. NT proBNP 53. . Patient is currently being evaluated emergency department, room 5. He is on BiPAP with settings 10/5 FiO2 60%. Breathing in the mid 20s, achieving tidal volumes around 400. He is alert. I did trial the patient off BiPAP and placed him on 6 L nasal cannula. Currently, patient is resting comfortably on 6 L/min nasal cannula, in no respiratory distress in bedside recliner. Viral screen negative for influenza, RSV, COVID. Current vitals: Temperature 100.7 F, heart rate 110 bpm, blood pressure 112/64 mmHg, SpO2 96% on 6 L/min nasal cannula, nontachypneic. He is being admitted for sepsis, unknown origin. Review of Systems ROS unobtainable: due to mental status Past Medical History Past Medical History: Coronary Artery Disease (CAD), COPD, Dementia, GERD/Reflux, Hyperlipidemia, Hypertension, Seizure Disorder Additional Past Medical History / Comment(s): Mental delay, last seizure greater than 6 yrs ago. History of Any Multi-Drug Resistant Organisms: None Reported Past Surgical History: Unable to Obtain Past Anesthesia/Blood Transfusion Reactions: Unable to Obtain Past Psychological History: Bipolar, Schizophrenia Smoking Status: Former smoker Past Alcohol Use History: None Reported Past Drug Use History: None Reported - Past Family History Father History Unknown: Yes Mother History Unknown: Yes Medications and Allergies Home Medications Medication Instructions Recorded Confirmed Type ALPRAZolam [Xanax] 1 mg PO BID@0800,199909/10/21 03/27/24 History Cyanocobalamin (Vitamin B-12) 1,000 mcg PO DAILY@0800 09/10/21 03/27/24 History [Vitamin B-12] Ergocalciferol [Vitamin D2 (1250 1,250 mcg PO FR@79909/10/21 03/27/24 History Mcg = 53446 Iu)] Folic Acid 1 mg PO DAILY@0800 09/10/21 03/27/24 History Ibuprofen [Motrin] 800 mg PO Q8H PRN 09/10/21 03/27/24 History LORazepam [Ativan] 1 mg PO TID PRN 09/10/21 03/27/24 History Rosuvastatin Calcium [Crestor] 5 mg PO HS@199909/10/21 03/27/24 History Sertraline [Zoloft] 25 mg PO DAILY@0800 09/10/21 03/27/24 History Sertraline [Zoloft] 50 mg PO DAILY@0809/10/21 03/27/24 History Betamethasone Valerate [Luxiq 0.1%] 1 applic TOPICAL BID PRN 03/07/24 03/27/24 History Chlorthalidone 100 mg PO DAILY@0800 03/07/24 03/27/24 History Levothyroxine Sodium [Synthroid] 25 mcg PO AC-BRKFST@0600 03/07/24 03/27/24 History Metoprolol Tartrate [Lopressor] 25 mg PO BID@0800,199903/07/24 03/27/24 History Potassium Chloride ER [K-Dur 20] 20 meq PO TID@0800,1399,199903/07/24 03/27/24 History QUEtiapine FUMARATE [SEROquel] 200 mg PO DAILY@1200 03/07/24 03/27/24 History QUEtiapine [SEROquel] 100 mg PO DAILY@0800 03/07/24 03/27/24 History QUEtiapine [SEROquel] 600 mg PO HS@199903/07/24 03/27/24 History Spironolactone [Aldactone] 50 mg PO DAILY@0800 03/07/24 03/27/24 History levETIRAcetam [Keppra] 250 mg PO Q12HR@0800,199903/07/24 03/27/24 History Ascorbic Acid [Vitamin C with Jade 1,000 mg PO DAILY@0800 03/27/24 03/27/24 History Hips] Silver Sulfadiazine [Silver 1 applic TOPICAL DAILY 03/27/24 03/27/24 History Sulfadiazine 1%] Budesonide/Formoterol Fumarate 1 puff INHALATION BID #1 each 03/29/24 Rx [Symbicort 80-4.5 Mcg Inhaler] cefuroxime axetiL [Ceftin] 500 mg PO BID 1 Days #4 tab 03/29/24 Rx Allergies Allergy/AdvReac Type Severity Reaction Status Date / Time No Known Allergies Allergy Verified 03/27/24 10:36 Physical Exam Vitals: Vital Signs Temp Pulse Resp BP Pulse Ox FiO2 05/02/24 01:38 100.7 F H 111 H 21 112/64 94 L 05/02/24 00:30 101.3 F H 122 H 20 93 L 05/02/24 00:04 101.6 F H 137 H 32 H 105/63 97 05/01/24 23:44 101.6 F H 140 H 22 83/53 98 05/01/24 22:55 60 05/01/24 22:43 40 05/01/24 22:40 101.6 F H 140 H 45 H 137/91 05/01/24 22:15 128 H 05/01/24 22:05 126 H 05/01/24 22:00 128 H 38 H 136/108 86 L 05/01/24 21:00 98.1 F 98 20 133/79 93 L Intake and Output 05/01/24 05/01/24 05/02/24 14:59 22:59 06:59 Other: Weight 115.666 kg GENERAL EXAM: Alert, 73-year-old obese male, currently on 6 L/min nasal cannula, BiPAP is on standby, comfortable in no apparent distress. HEAD: Normocephalic and atraumatic EYES: Normal reaction of pupils, equal size. NOSE: Clear with pink turbinates. THROAT: No erythema or exudates. NECK: No masses, no JVD. CHEST: No chest wall deformity. LUNGS: Equal air entry with minimal bibasilar inspiratory crackles. No wheezing, rhonchi, or focal dullness. On 6 L/min nasal cannula. SpO2 96%. No conversational dyspnea or accessory muscle use.. CVS: S1 and S2 normal with no audible murmur, regular rhythm. No extra heart sounds. Tachycardic ABDOMEN: No hepatosplenomegaly, active bowel sounds, no guarding or rigidity. SPINE: No scoliosis or deformity SKIN: No rashes CENTRAL NERVOUS SYSTEM: No focal deficits, tone is normal in all 4 extremities. EXTREMITIES: There is mild 1+ pitting edema bilaterally. No clubbing or cyanosis. Peripheral pulses are intact. Results - Laboratory Findings CBC and BMP: 05/01/24 22:40 05/01/24 22:40 PT/INR, D-dimer PT 10.3 sec (10.0-12.5) 05/01/24 22:40 INR 0.9 (<1.2) 05/01/24 22:40 Abnormal lab findings: Abnormal Labs 05/01/24 05/01/24 05/01/24 22:40 22:40 22:40 WBC 16.1 H RBC 4.26 L MCV 100.5 H Neutrophils # 12.2 H Sodium 135 L Chloride 97 L Carbon Dioxide 32 H Glucose 126 H Plasma Lactic Acid Jake 4.0 H* - Diagnostic Findings Chest x-ray: image reviewed Assessment and Plan Assessment: Acute febrile illness and sepsis, under investigation Possibly witnessed aspiration event at [facility] home Acute hypoxemic respiratory failure, possibly secondary to above, chest x-ray does not show any focal infiltrates or evidence of aspiration pneumonitis Acute leukocytosis lactic acidemia, improved Chronic obstructive pulmonary disease, appears stable History of hypertension History of hyperlipidemia History of developmental delay History of seizure disorder History of schizophrenia and bipolar disorder Plan: Patient's medications, labs, chest x-ray reviewed Patient was transitioned to 6 L nasal cannula May continue to wean FiO2 as tolerated, BiPAP is on standby No evidence of focal infiltrates or aspiration pneumonitis on cxr Continue empiric antibiotics Repeat chest x-ray in 24 hours Pancultures pending Viral screen negative for influenza, RSV, COVID Patient reportedly has history of COPD, will optimize with combination of bronchodilators, Symbicort Hailer, and IV Solu-Medrol Will continue to follow, additional recommendations to follow I have personally seen and examined the patient, performed the documentation and the assessment and plan as written. Number of minutes spent on the visit:20 Time with Patient: Greater than 30
[2024-05-02] MEDS: methylPREDNISolone SOD SUCCI 125 MG/2 ML VIAL IV SCH (06:27)
[2024-05-02] MEDS: IPRATROPIUM-ALBUTEROL 3 ML NEB INHALATION SCH (08:41)
[2024-05-02 08:44] LABS: Appearance,Urine Clear (Clear); Bilirubin,Urine Negative (Negative); Blood,Urine Negative (Negative); Color,Urine Colorless; Glucose,Urine (UA) Negative (Negative); Ketones,Urine Negative (Negative); Leukocyte Esterase,Urine Negative (Negative); Nitrite,Urine Negative (Negative); PH, Urine 6.5 (5.0-8.0); Protein,Urine Negative (Negative); Specific Gravity,Urine 1.011 (1.001-1.035); Urobilinogen,Urine <2.0 mg/dL (<2.0)
[2024-05-02] MEDS: SYMBICORT 160-4.5 MCG INHALER INHALATION SCH (09:36)
[2024-05-02] MEDS: levETIRAcetam 250 MG TAB PO SCH (14:15)
[2024-05-02] MEDS: LEVOTHYROXINE 25 MCG TAB PO SCH (14:15)
--- NOTE | 2024-05-02 17:17 | P.HPIM ---
History of Present Illness H&P Date: 05/02/24 Chief Complaint: Short of breath Pleasant 73-year-old patient, resident of a [facility]. Limited historian. Can only answer simple questions. Known history of COPD, schizophrenia bipolar, hypercholesteremia, hypothyroid, essential hypertension. Has a public guardian. Not a good historian. Now presents with increasing shortness of breath. Cough. Fever on presentation.. After questioning does state that he does smoke. And cigarettes are bought by the [facility] staff. Appetite is fair. Overnight patient required BiPAP. Review of systems: GEN.: , tired EYES: None HEENT: None NECK: None RESPIRATORY: Cough short of breath CARDIOVASCULAR: None GASTROINTESTINAL: None GENITOURINARY: None MUSCULOSKELETAL: None LYMPHATICS: None HEMATOLOGICAL: None PSYCHIATRY: None NEUROLOGICAL: Forgetful Social history: [facility] correction. Has a legal guardian . smokes a pack a day. Physical examination: VITAL SIGNS: 101.3, 122, 20, 93% on BiPAP initially GENERAL: Up in a chair. But short of breath EYES: Pupils equal. Conjunctiva von l. HEENT: External appearance of nose and ears normal, oral cavity grossly normal. NECK: JVD not raised; masses not palpable. HEART: First and second heart sounds are normal; significant edema. LUNGS: Respiratory rate increased, diminished breath sound prolonged expiration ABDOMEN: Soft, distended, nontender, liver spleen not palpable, no masses palpable. PSYCH: Able to answer simple questions MUSCULOSKELETAL:No Clubbing/cyanosis;muscles-grossly intact INVESTIGATIONS, reviewed in the clinical context: May 01: White count 16.1 hemoglobin 14.5 platelets 250 sodium 135 potassium 4.1 creatinine 0.87 Lactic acid 4.0, 1.6 Influenza type A, type B, RSV, COVID-19: Not detected EKG tracing personally reviewed by me-normal sinus rhythm. Chest x-ray film personally reviewed by me-possible right basilar infiltrate Assessment and plan: -Right basal pneumonia suspect gram-negative organism. Causing hypoxia. Ceftriaxone. Zithromax. -Sepsis, secondary to pneumonia IV antibiotics -Acute COPD exacerbation in a current smoker: DuoNeb 4 times daily Symbicort.. IV Solu-Medrol 60 mg Q6 Pulmonary following -Acute hypoxic respiratory failure from COPD exacerbation pneumonia: BiPAP on presentation. 6 L nasal cannula this afternoon -Schizophrenia and bipolar Xanax. Seroquel. Zoloft -Hypercholesteremia Crestor -Hypothyroid Synthroid -Essential hypertension Lopressor. Chlorthalidone -Full code -Public guardian. Siri Rodriguez. [phone] Discussed with patient. Treatment as above Past Medical History Past Medical History: Coronary Artery Disease (CAD), COPD, Dementia, GERD/Reflux, Hyperlipidemia, Hypertension, Seizure Disorder Additional Past Medical History / Comment(s): Mental delay, last seizure greater than 6 yrs ago. History of Any Multi-Drug Resistant Organisms: None Reported Past Surgical History: Unable to Obtain Past Anesthesia/Blood Transfusion Reactions: Unable to Obtain Past Psychological History: Bipolar, Schizophrenia Smoking Status: Former smoker Past Alcohol Use History: None Reported Past Drug Use History: None Reported - Past Family History Father History Unknown: Yes Mother History Unknown: Yes Medications and Allergies Home Medications Medication Instructions Recorded Confirmed Type ALPRAZolam [Xanax] 1 mg PO BID@08,199909/10/21 05/02/24 History Cyanocobalamin (Vitamin B-12) 1,000 mcg PO DAILY@79909/10/21 05/02/24 History [Vitamin B-12] Ergocalciferol [Vitamin D2 (1250 1,250 mcg PO FR@79909/10/21 05/02/24 History Mcg = 06441 Iu)] Folic Acid 1 mg PO DAILY@79909/10/21 05/02/24 History LORazepam [Ativan] 1 mg PO TID PRN 09/10/21 05/02/24 History Rosuvastatin Calcium [Crestor] 5 mg PO HS@199909/10/21 05/02/24 History Sertraline [Zoloft] 25 mg PO DAILY@79909/10/21 05/02/24 History Sertraline [Zoloft] 50 mg PO DAILY@79909/10/21 05/02/24 History Betamethasone Valerate [Luxiq 0.1%] 1 applic TOPICAL BID PRN 03/07/24 05/02/24 History Chlorthalidone 100 mg PO DAILY@79903/07/24 05/02/24 History Levothyroxine Sodium [Synthroid] 25 mcg PO AC-BRKFST@59903/07/24 05/02/24 History Metoprolol Tartrate [Lopressor] 25 mg PO BID@0800,199903/07/24 05/02/24 History Potassium Chloride ER [K-Dur 20] 20 meq PO TID@0800,1399,199903/07/24 05/02/24 History QUEtiapine FUMARATE [SEROquel] 200 mg PO DAILY@1200 03/07/24 05/02/24 History QUEtiapine [SEROquel] 100 mg PO DAILY@0800 03/07/24 05/02/24 History QUEtiapine [SEROquel] 600 mg PO HS@199903/07/24 05/02/24 History Spironolactone [Aldactone] 50 mg PO DAILY@0800 03/07/24 05/02/24 History levETIRAcetam [Keppra] 250 mg PO Q12HR@08,199903/07/24 05/02/24 History Ascorbic Acid [Vitamin C with Jade 1,000 mg PO DAILY@0800 03/27/24 05/02/24 History Hips] Silver Sulfadiazine [Silver 1 applic TOPICAL DAILY 03/27/24 05/02/24 History Sulfadiazine 1%] Fluticasone/Vilanterol [Breo 1 puff INHALATION RT-DAILY 05/02/24 05/02/24 History Ellipta 100-25 Mcg Inhalr] Allergies Allergy/AdvReac Type Severity Reaction Status Date / Time No Known Allergies Allergy Verified 05/02/24 10:22 Physical Exam Vitals: Vital Signs Temp Pulse Resp BP Pulse Ox FiO2 05/02/24 08:49 111 H 05/02/24 08:43 114 H 05/02/24 07:48 98.0 F 113 H 18 107/52 91 L 05/02/24 06:29 110 H 18 112/64 97 05/02/24 03:45 98.8 F 99 18 112/64 9 L 05/02/24 01:38 100.7 F H 111 H 21 112/64 94 L 05/02/24 00:30 101.3 F H 122 H 20 93 L 05/02/24 00:04 101.6 F H 137 H 32 H 105/63 97 05/01/24 23:44 101.6 F H 140 H 22 83/53 98 05/01/24 22:55 60 05/01/24 22:43 40 05/01/24 22:40 101.6 F H 140 H 45 H 137/91 05/01/24 22:15 128 H 05/01/24 22:05 126 H 05/01/24 22:00 128 H 38 H 136/108 86 L 05/01/24 21:00 98.1 F 98 20 133/79 93 L Intake and Output 05/01/24 05/02/24 05/02/24 22:59 06:59 14:59 Other: Weight 115.666 kg Results CBC & Chem 7: 05/01/24 22:40 05/01/24 22:40 Labs: Abnormal Lab Results - Last 24 Hours (Table) 05/01/24 05/01/24 05/01/24 Range/Units 22:40 22:40 22:40 WBC 16.1 H (3.8-10.6) k/uL RBC 4.26 L (4.30-5.90) m/uL MCV 100.5 H (80.0-100.0) fL Neutrophils # 12.2 H (1.3-7.7) k/uL Sodium 135 L (137-145) mmol/L Chloride 97 L (98-107) mmol/L Carbon Dioxide 32 H (22-30) mmol/L Glucose 126 H (74-99) mg/dL Plasma Lactic Acid Jake 4.0 H* (0.7-2.0) mmol/L
[2024-05-02] MEDS: QUEtiapine 200 MG TAB PO SCH (20:29)
[2024-05-02] MEDS: METOPROLOL TARTRATE 25 MG TAB PO SCH (20:30)
[2024-05-02] MEDS: ATORVASTATIN 10 MG TAB PO SCH (20:30)
[2024-05-02] MEDS: ALPRAZolam 1 MG TAB PO SCH (20:30)
--- NOTE | 2024-05-03 07:33 | XR ---
EXAMINATION TYPE: XR chest 1V portable DATE OF EXAM: 05/03/2024 5:21 AM COMPARISON: 05/01/2024 CLINICAL INDICATION: Male, 73 years old with history of pneumonia, TECHNIQUE: XR chest 1V portable view(s) obtained. FINDINGS: The heart size is normal. The pulmonary vasculature is normal. The lungs are clear. IMPRESSION: 1. No acute pulmonary process. [facility], , 05/03/2024 7:30 AM
[2024-05-03] MEDS: FOLIC ACID 1 MG TAB PO SCH (07:57)
[2024-05-03] MEDS: ASCORBIC ACID 500 MG TAB PO SCH (07:57)
[2024-05-03] MEDS: SERTRALINE 25 MG TAB PO SCH (07:57)
[2024-05-03] MEDS: CYANOCOBALAMIN 500 MCG TAB PO SCH (07:57)
[2024-05-03] MEDS: SPIRONOLACTONE 25 MG TAB PO SCH (07:58)
[2024-05-03] MEDS: SERTRALINE 50 MG TAB PO SCH (07:59)
[2024-05-03] MEDS: QUEtiapine 100 MG TAB PO SCH (07:59)
[2024-05-03] MEDS: QUEtiapine 200 MG TAB PO SCH (11:49)
--- NOTE | 2024-05-03 15:44 | P.PN ---
Subjective Progress Note Date: 05/03/24 Patient is a 73-year-old male with past medical history significant for COPD, developmental delay, bipolar/schizophrenia, hypothyroidism, hypertension, hyperlipidemia. Patient's is a very poor historian, I am unsure of his baseline mentation. He has reportedly has a developmental delay and lives at an adult foster care facility. I am told that the patient was sent in for a witnessed aspiration on medication. He was in respiratory distress on arrival. He was placed on BiPAP in the ED. Initial chest x-ray does not show any focal infiltrates or evidence of aspiration pneumonitis. He did have a high fever of unknown origin. Pancultures are pending. Patient was placed empirically on antibiotics. CBC remarkable for leukocytosis. WBC count 16.1. Tmax 101.6 F. Tachycardic. Tachypneic on arrival. Meeting SIRS criteria. CMP on arrival: Sodium 135, potassium 4.1, chloride 97, serum bicarb 32, BUN 11, creatinine 0.87, glucose 126. Troponin is less than 0.012. NT proBNP 53. . Patient is cur rently being evaluated emergency department, room 5. He is on BiPAP with settings 10/5 FiO2 60%. Breathing in the mid 20s, achieving tidal volumes around 400. He is alert. I did trial the patient off BiPAP and placed him on 6 L nasal cannula. Currently, patient is resting comfortably on 6 L/min nasal cannula, in no respiratory distress in bedside recliner. Viral screen negative for influenza, RSV, COVID. Current vitals: Temperature 100.7 F, heart rate 110 bpm, blood pressure 112/64 mmHg, SpO2 96% on 6 L/min nasal cannula, nontachypneic. He is being admitted for sepsis, unknown origin. The patient is seen today May 03, 2024 in follow-up in the emergency department. Awake and alert in no acute distress. He is maintaining good O2 saturations in the 90s on 2 L/min per nasal cannula. This is his home rate as well. He did utilize BiPAP last night 10/5 and 60% FiO2. His viral screen was negative. Legionella screen negative. He has been afebrile. Hemodynamically stable. Chest x-ray shows no acute pulmonary process. Procalcitonin is pending. He is currently on Rocephin and Flagyl. He is continued on DuoNeb ventilations, Symbicort, Solu-Medrol. Receiving normal saline at 130 mL/h. He is currently sitting up in a chair having breakfast. Denies any worsening shortness of breath, cough or congestion. Objective - Vital Signs Vital signs: Vital Signs Temp 97.9 F 05/03/24 07:47 Pulse 102 H 05/03/24 15:20 Resp 18 05/03/24 11:51 BP 109/60 05/03/24 11:51 Pulse Ox 97 05/03/24 11:51 FiO2 60 05/01/24 22:55 - Exam GENERAL EXAM: Alert, pleasant 73-year-old obese male, on 2 L/min nasal cannula, BiPAP is on standby, comfortable in no apparent distress. HEAD: Normocephalic and atraumatic EYES: Normal reaction of pupils, equal size. NOSE: Clear with pink turbinates. THROAT: No erythema or exudates. NECK: No masses, no JVD. CHEST: No chest wall deformity. LUNGS: Equal air entry with minimal bibasilar inspiratory crackles. No wheezing, rhonchi, or focal dullness. No conversational dyspnea. CVS: S1 and S2 normal with no audible murmur, regular rhythm. No extra heart sounds. ABDOMEN: No hepatosplenomegaly, active bowel sounds, no guarding or rigidity. SPINE: No scoliosis or deformity SKIN: No rashes CENTRAL NERVOUS SYSTEM: No focal deficits, tone is normal in all 4 extremities. EXTREMITIES: There is mild 1+ pitting edema bilaterally. No clubbing or cyanosis. Peripheral pulses are intact. - Labs CBC & Chem 7: 05/01/24 22:40 05/01/24 22:40 Labs: Microbiology - Last 24 Hours (Table) 05/01/24 23:38 Blood Culture - Preliminary Blood Assessment and Plan Assessment: Acute febrile illness and sepsis, under investigation, improved Possibly witnessed aspiration event at [facility] home Acute hypoxemic respiratory failure, possibly secondary to above, chest x-ray does not show any focal infiltrates or evidence of aspiration pneumonitis Acute leukocytosis Lactic acidemia, improved Chronic obstructive pulmonary disease, appears stable History of hypertension History of hyperlipidemia History of developmental delay History of seizure disorder History of schizophrenia and bipolar disorder Plan: The patient was seen and evaluated Chest x-ray, labs and medications reviewed Currently on 2 L nasal cannula Continue bronchodilators, steroids Check a procalcitonin Continue antibiotics for now Blood culture pending Lovenox for DVT prophylaxis We will continue to follow I have personally seen and examined the patient, performed the documentation and the assessment and plan as written. Number of minutes spent on the visit: 10 Dictation was produced using [employer] dictation software. Please excuse any grammatical, word or spelling errors.
--- NOTE | 2024-05-03 17:12 | P.PN ---
Progress Note - Text Progress Note Date: 05/03/24 Chief Complaint: Short of breath Pleasant 73-year-old patient, resident of a jail. Limited historian. Can only answer simple questions. Known history of COPD, schizophrenia bipolar, hypercholesteremia, hypothyroid, essential hypertension. Has a public guardian. Not a good historian. Now presents with increasing shortness of breath. Cough. Fever on presentation.. After questioning does state that he does smoke. And cigarettes are bought by the [employer] staff. Appetite is fair. Overnight patient required BiPAP. May 03: Overflowing the ER. Breathing better. Down to 2 L nasal cannula. Oral intake good. Some cough.No fever no chills Active Medications Albuterol/Ipratropium (Ipratropium-Albuterol 3 Ml Neb) 3 ml INHALATION RT-Q4H PRN PRN Reason: shortness of breath Albuterol/Ipratropium (Ipratropium-Albuterol 3 Ml Neb) 3 ml INHALATION RT-QID [facility] Last Admin: 05/03/24 15:10 Dose: 3 ml Alprazolam (Alprazolam 1 Mg Tab) 1 mg PO BID@799,1999 [facility] Last Admin: 05/03/24 07:56 Dose: 1 mg Ascorbic Acid (Ascorbic Acid 500 Mg Tab) 1,000 mg PO DAILY@799 [facility] Last Admin: 05/03/24 07:57 Dose: 1,000 mg Atorvastatin Calcium (Atorvastatin 10 Mg Tab) 10 mg PO HS@1999 [facility] Last Admin: 05/02/24 20:30 Dose: 10 mg Budesonide/Formoterol Fumarate (Symbicort 160-4.5 Mcg Inhaler) 2 puff INHALATION RT-BID [facility] Last Admin: 05/03/24 08:06 Dose: 2 puff Cyanocobalamin (Cyanocobalamin 500 Mcg Tab) 1,000 mcg PO DAILY@0800 [facility] Last Admin: 05/03/24 07:57 Dose: 1,000 mcg Enoxaparin Sodium (Enoxaparin 40 Mg/0.4 Ml Syringe) 40 mg SQ DAILY [facility] Ergocalciferol (Ergocalciferol 1,250 Mcg (50,000 Iu) Capsule) 1,250 mcg PO FR@0800 [facility] Folic Acid (Folic Acid 1 Mg Tab) 1 mg PO DAILY@0800 [facility] Last Admin: 05/03/24 07:57 Dose: 1 mg Ceftriaxone Sodium 2 gm/ (Sodium Chloride) 50 mls @ 100 mls/hr IVPB Q24HR [facility]; Protocol Stop: 05/05/24 09:29 Last Admin: 05/03/24 09:10 Dose: 100 mls/hr Sodium Chloride (Saline 0.9%) 1,000 mls @ 20 mls/hr IV .Q24H [facility] Last Admin: 05/03/24 13:48 Dose: 130 mls/hr Levetiracetam (Levetiracetam 250 Mg Tab) 250 mg PO Q12HR@08,1999 [facility] Last Admin: 05/03/24 07:57 Dose: 250 mg Levothyroxine Sodium (Levothyroxine 25 Mcg Tab) 25 mcg PO AC-BRKFST@0600 [facility] Last Admin: 05/03/24 05:48 Dose: 25 mcg Methylprednisolone Sodium Succinate (Methylprednisolone Sod Succi 125 Mg/2 Ml Vial) 60 mg IV Q6HR [facility] Last Admin: 05/03/24 11:49 Dose: 60 mg Metoprolol Tartrate (Metoprolol Tartrate 25 Mg Tab) 25 mg PO BID@08,1999 [facility] Last Admin: 05/03/24 07:57 Dose: 25 mg Miscellaneous Information (Pneumonia Protocol Utilized 1 Each Misc) 1 each PO ONCE PRN PRN Reason: Per Protocol Quetiapine Fumarate (Quetiapine 100 Mg Tab) 100 mg PO DAILY@0800 [facility] Last Admin: 05/03/24 07:59 Dose: 100 mg Quetiapine Fumarate (Quetiapine 200 Mg Tab) 600 mg PO HS@1999 [facility] Last Admin: 05/02/24 20:29 Dose: 600 mg Quetiapine Fumarate (Quetiapine 200 Mg Tab) 200 mg PO DAILY@1200 [facility] Last Admin: 05/03/24 11:49 Dose: 200 mg Sertraline HCl (Sertraline 25 Mg Tab) 25 mg PO DAILY@0800 [facility] Last Admin: 05/03/24 07:57 Dose: 25 mg Sertraline HCl (Sertraline 50 Mg Tab) 50 mg PO DAILY@0800 [facility] Last Admin: 05/03/24 07:59 Dose: 50 mg Spironolactone (Spironolactone 25 Mg Tab) 50 mg PO DAILY@0800 [facility] Last Admin: 05/03/24 07:58 Dose: 50 mg Social history: Scott [facility]. Has a legal guardian . smokes a pack a day. Physical examination: VITAL SIGNS: 97.9, 82, 18, 109 x 95, 99% on 2 L GENERAL: Up in a c recliner, breathing better EYES: Pupils equal. Conjunctiva von l. HEENT: External appearance of nose and ears normal, oral cavity grossly normal. NECK: JVD not raised; masses not palpable. HEART: First and second heart sounds are normal; significant edema. LUNGS: Respiratory rate increased, diminished breath sound ABDOMEN: Soft, distended, nontender, liver spleen not palpable, no masses palpable. PSYCH: Able to answer simple questions MUSCULOSKELETAL:No Clubbing/cyanosis;muscles-grossly intact INVESTIGATIONS, reviewed in the clinical context: May 03: Procalcitonin 0.35 May 01: White count 16.1 hemoglobin 14.5 platelets 250 sodium 135 potassium 4.1 creatinine 0.87 Lactic acid 4.0, 1.6 Influenza type A, type B, RSV, COVID-19: Not detected EKG tracing personally reviewed by me-normal sinus rhythm. Chest x-ray film personally reviewed by me-possible right basilar infiltrate Assessment and plan: -Right basal pneumonia suspect gram-negative organism. Causing hypoxia.: Better Ceftriaxone. Zithromax. -Sepsis, secondary to pneumonia: Better IV antibiotics -Acute COPD exacerbation in a current smoker:: Improving DuoNeb 4 times daily Symbicort.. IV Solu-Medrol cut back to 40 mg every 8 Pulmonary following -Acute hypoxic respiratory failure from COPD exacerbation pneumonia:: Improving BiPAP on presentation. Down to 2 L today. -Schizophrenia and bipolar Xanax. Seroquel. Zoloft -Hypercholesteremia Crestor -Hypothyroid Synthroid -Essential hypertension Lopressor. Chlorthalidone -Full code -Public guardian. Siri [place]. [phone] Improving. Continue current medication treatment plan. Cut back Solu-Medrol. Past Medical History Past Medical History: Coronary Artery Disease (CAD), COPD, Dementia, GERD/Reflux, Hyperlipidemia, Hypertension, Seizure Disorder Additional Past Medical History / Comment(s): Mental delay, last seizure greater than 6 yrs ago. History of Any Multi-Drug Resistant Organisms: None Reported Past Surgical History: Unable to Obtain Past Anesthesia/Blood Transfusion Reactions: Unable to Obtain Past Psychological History: Bipolar, Schizophrenia Smoking Status: Former smoker Past Alcohol Use History: None Reported Past Drug Use History: None Reported
[2024-05-03] MEDS: methylPREDNISolone SOD SUCCI 40 MG/ML 1 ML VIAL IV SCH (20:09)
[2024-05-04] MEDS: predniSONE 20 MG TAB PO SCH (09:16)
[2024-05-04] MEDS: ENOXAPARIN 40 MG/0.4 ML SYRINGE SQ SCH (09:17)
--- NOTE | 2024-05-04 13:06 | P.PN ---
Subjective Progress Note Date: 05/04/24 Patient is a 73-year-old male with past medical history significant for COPD, developmental delay, bipolar/schizophrenia, hypothyroidism, hypertension, hyperlipidemia. Patient's is a very poor historian, I am unsure of his baseline mentation. He has reportedly has a developmental delay and lives at an adult foster care facility. I am told that the patient was sent in for a witnessed aspiration on medication. He was in respiratory distress on arrival. He was placed on BiPAP in the ED. Initial chest x-ray does not show any focal infiltrates or evidence of aspiration pneumonitis. He did have a high fever of unknown origin. Pancultures are pending. Patient was placed empirically on antibiotics. CBC remarkable for leukocytosis. WBC count 16.1. Tmax 101.6 F. Tachycardic. Tachypneic on arrival. Meeting SIRS criteria. CMP on arrival: Sodium 135, potassium 4.1, chloride 97, serum bicarb 32, BUN 11, creatinine 0.87, glucose 126. Troponin is less than 0.012. NT proBNP 53. . Patient is cur rently being evaluated emergency department, room 5. He is on BiPAP with settings 10/5 FiO2 60%. Breathing in the mid 20s, achieving tidal volumes around 400. He is alert. I did trial the patient off BiPAP and placed him on 6 L nasal cannula. Currently, patient is resting comfortably on 6 L/min nasal cannula, in no respiratory distress in bedside recliner. Viral screen negative for influenza, RSV, COVID. Current vitals: Temperature 100.7 F, heart rate 110 bpm, blood pressure 112/64 mmHg, SpO2 96% on 6 L/min nasal cannula, nontachypneic. He is being admitted for sepsis, unknown origin. The patient is seen today May 03, 2024 in follow-up in the emergency department. Awake and alert in no acute distress. He is maintaining good O2 saturations in the 90s on 2 L/min per nasal cannula. This is his home rate as well. He did utilize BiPAP last night 10/5 and 60% FiO2. His viral screen was negative. Legionella screen negative. He has been afebrile. Hemodynamically stable. Chest x-ray shows no acute pulmonary process. Procalcitonin is pending. He is currently on Rocephin and Flagyl. He is continued on DuoNeb ventilations, Symbicort, Solu-Medrol. Receiving normal saline at 130 mL/h. He is currently sitting up in a chair having breakfast. Denies any worsening shortness of breath, cough or congestion. The patient is seen today May 04, 2024 in follow-up on the regular medical floor. He is currently sitting up in bed. Awake and alert in no acute distress. States he is breathing better today compared to yesterday. Not quite back to his baseline. He is continued on Symbicort, DuoNeb and elations, Solu- Medrol. Lovenox for DVT prophylaxis. Blood cultures revealed no growth. Procalcitonin was negative at 0.35. He is maintaining good O2 saturations in the mid 90s on 2 L/min per nasal cannula. He has been afebrile. Hemodynamically stable. Objective - Vital Signs Vital signs: Vital Signs Temp 98.0 F 05/04/24 07:45 Pulse 88 05/04/24 11:13 Resp 16 05/04/24 07:45 BP 128/78 05/04/24 07:45 Pulse Ox 96 05/04/24 08:14 FiO2 60 05/01/24 22:55 Intake & Output 05/03/24 05/04/24 05/04/24 18:59 06:59 18:59 Intake Total 477 Balance 477 Weight 115.666 kg Intake: Oral 477 Other: Voiding Method Toilet Toilet # Voids 1 1 - Exam GENERAL EXAM: Alert, 73-year-old obese male, on 2 L/min nasal cannula, sitting up in bed, in no apparent distress. HEAD: Normocephalic and atraumatic EYES: Normal reaction of pupils, equal size. NOSE: Clear with pink turbinates. THROAT: No erythema or exudates. NECK: No masses, no JVD. CHEST: No chest wall deformity. LUNGS: Equal air entry with minimal bibasilar inspiratory crackles. No wheezing, rhonchi, or focal dullness. No conversational dyspnea. CVS: S1 and S2 normal with no audible murmur, regular rhythm. No extra heart sounds. ABDOMEN: No hepatosplenomegaly, active bowel sounds, no guarding or rigidity. SPINE: No scoliosis or deformity SKIN: No rashes CENTRAL NERVOUS SYSTEM: No focal deficits, tone is normal in all 4 extremities. EXTREMITIES: There is mild 1+ pitting edema bilaterally. No clubbing or cyanosis. Peripheral pulses are intact. - Labs CBC & Chem 7: 05/01/24 22:40 05/01/24 22:40 Labs: Microbiology - Last 24 Hours (Table) 05/01/24 23:38 Blood Culture - Preliminary Blood Assessment and Plan Assessment: Acute febrile illness and sepsis, under investigation, improved. Procalcitonin was negative at 0.35 Possibly witnessed aspiration event at [facility] home Acute hypoxemic respiratory failure, possibly secondary to above, chest x-ray does not show any focal infiltrates or evidence of aspiration pneumonitis Acute leukocytosis Lactic acidemia, improved Chronic obstructive pulmonary disease, appears stable History of hypertension History of hyperlipidemia History of developmental delay History of seizure disorder History of schizophrenia and bipolar disorder Plan: The patient was seen and evaluated Medications reviewed Currently on 2 L nasal cannula Continue bronchodilators Discontinue Solu-Medrol Initiate a prednisone taper Procalcitonin negative Antibiotics discontinued Blood culture reveals no growth Lovenox for DVT prophylaxis Probable home in the a.m. This patient was seen independently by the pulmonary nurse practitioner addressing pulmonary issues I have personally seen and examined the patient, performed the documentation and the assessment and plan as written. Number of minutes spent on the visit: 24 Dictation was produced using [employer] dictation software. Please excuse any grammatical, word or spelling errors.
--- NOTE | 2024-05-04 17:27 | P.PN ---
Progress Note - Text Progress Note Date: 05/04/24 Chief Complaint: Short of breath Pleasant 73-year-old patient, resident of a residential. Limited historian. Can only answer simple questions. Known history of COPD, schizophrenia bipolar, hypercholesteremia, hypothyroid, essential hypertension. Has a public guardian. Not a good historian. Now presents with increasing shortness of breath. Cough. Fever on presentation.. After questioning does state that he does smoke. And cigarettes are bought by the [employer] staff. Appetite is fair. Overnight patient required BiPAP. May 03: Overflowing the ER. Breathing better. Down to 2 L nasal cannula. Oral intake good. Some cough.No fever no chills May 04: Breathing better. Still coughing. Oral intake good. Requesting to be here 1 more day. Will be switched over to oral prednisone. Active Medications Albuterol/Ipratropium (Ipratropium-Albuterol 3 Ml Neb) 3 ml INHALATION RT-Q4H PRN PRN Reason: shortness of breath Albuterol/Ipratropium (Ipratropium-Albuterol 3 Ml Neb) 3 ml INHALATION RT-QID [facility] Last Admin: 05/04/24 15:07 Dose: 3 ml Alprazolam (Alprazolam 1 Mg Tab) 1 mg PO BID@799,1999 [facility] Last Admin: 05/04/24 09:14 Dose: 1 mg Ascorbic Acid (Ascorbic Acid 500 Mg Tab) 1,000 mg PO DAILY@0800 [facility] Last Admin: 05/04/24 09:16 Dose: 1,000 mg Atorvastatin Calcium (Atorvastatin 10 Mg Tab) 10 mg PO HS@1999 [facility] Last Admin: 05/03/24 20:07 Dose: 10 mg Budesonide/Formoterol Fumarate (Symbicort 160-4.5 Mcg Inhaler) 2 puff INHALATION RT-BID [facility] Last Admin: 05/04/24 08:13 Dose: 2 puff Cyanocobalamin (Cyanocobalamin 500 Mcg Tab) 1,000 mcg PO DAILY@0800 [facility] Last Admin: 05/04/24 09:13 Dose: 1,000 mcg Enoxaparin Sodium (Enoxaparin 40 Mg/0.4 Ml Syringe) 40 mg SQ DAILY [facility] Last Admin: 05/04/24 09:17 Dose: 40 mg Ergocalciferol (Ergocalciferol 1,250 Mcg (50,000 Iu) Capsule) 1,250 mcg PO FR@08 [facility] Folic Acid (Folic Acid 1 Mg Tab) 1 mg PO DAILY@0800 [facility] Last Admin: 05/04/24 09:14 Dose: 1 mg Sodium Chloride (Saline 0.9%) 1,000 mls @ 20 mls/hr IV .Q24H [facility] Last Admin: 05/04/24 16:13 Dose: Not Given Levetiracetam (Levetiracetam 250 Mg Tab) 250 mg PO Q12HR@ [facility] Last Admin: 05/04/24 09:13 Dose: 250 mg Levothyroxine Sodium (Levothyroxine 25 Mcg Tab) 25 mcg PO AC-BRKFST@06 [facility] Last Admin: 05/04/24 05:42 Dose: 25 mcg Metoprolol Tartrate (Metoprolol Tartrate 25 Mg Tab) 25 mg PO BID@ [facility] Last Admin: 05/04/24 09:17 Dose: 25 mg Miscellaneous Information (Pneumonia Protocol Utilized 1 Each Misc) 1 each PO ONCE PRN PRN Reason: Per Protocol Prednisone (Prednisone 20 Mg Tab) 40 mg PO DAILY [facility] Last Admin: 05/04/24 09:16 Dose: 40 mg Quetiapine Fumarate (Quetiapine 100 Mg Tab) 100 mg PO DAILY@0800 [facility] Last Admin: 05/04/24 09:16 Dose: 100 mg Quetiapine Fumarate (Quetiapine 200 Mg Tab) 600 mg PO HS@1999 [facility] Last Admin: 05/03/24 21:37 Dose: 600 mg Quetiapine Fumarate (Quetiapine 200 Mg Tab) 200 mg PO DAILY@1200 [facility] Last Admin: 05/04/24 11:55 Dose: 200 mg Sertraline HCl (Sertraline 25 Mg Tab) 25 mg PO DAILY@0800 [facility] Last Admin: 05/04/24 09:18 Dose: 25 mg Sertraline HCl (Sertraline 50 Mg Tab) 50 mg PO DAILY@0800 [facility] Last Admin: 05/04/24 09:15 Dose: 50 mg Spironolactone (Spironolactone 25 Mg Tab) 50 mg PO DAILY@0800 [facility] Last Admin: 05/04/24 09:14 Dose: 50 mg Social history: [facility]. Has a legal guardian . smokes a pack a day. Physical examination: VITAL SIGNS: 98.3, 101, 15, 113 x 65, 94% 2 L GENERAL: Reclining in bed, intermittent coughing r EYES: Pupils equal. Conjunctiva von l. HEENT: External appearance of nose and ears normal, oral cavity grossly normal. NECK: JVD not raised; masses not palpable. HEART: First and second heart sounds are normal; significant edema. LUNGS: Respiratory rate increased, diminished breath sound ABDOMEN: Soft, distended, nontender, liver spleen not palpable, no masses palpable. PSYCH: Able to answer simple questions MUSCULOSKELETAL:No Clubbing/cyanosis;muscles-grossly intact INVESTIGATIONS, reviewed in the clinical context: May 03: Procalcitonin 0.35 May 01: White count 16.1 hemoglobin 14.5 platelets 250 sodium 135 potassium 4.1 creatinine 0.87 Lactic acid 4.0, 1.6 Influenza type A, type B, RSV, COVID-19: Not detected EKG tracing personally reviewed by me-normal sinus rhythm. Chest x-ray film personally reviewed by me-possible right basilar infiltrate Assessment and plan: -Right basal pneumonia suspect gram-negative organism. Causing hypoxia.: Better Ceftriaxone. Zithromax. -Sepsis, secondary to pneumonia: Better IV antibiotics -Acute COPD exacerbation in a current smoker:: Improving DuoNeb 4 times daily Symbicort.. IV Solu-Medrol changed over to oral prednisone Pulmonary following -Acute hypoxic respiratory failure from COPD exacerbation pneumonia:: Improving BiPAP on presentation. Down to 2 L today. -Schizophrenia and bipolar Xanax. Seroquel. Zoloft -Hypercholesteremia Crestor -Hypothyroid Synthroid -Essential hypertension Lopressor. Chlorthalidone -Full code -Public guardian. Siri [place]. [phone] Continues to improve. Plan for probably discharge tomorrow. Past Medical History Past Medical History: Coronary Artery Disease (CAD), COPD, Dementia, GERD/Reflux, Hyperlipidemia, Hypertension, Seizure Disorder Additional Past Medical History / Comment(s): Mental delay, last seizure greater than 6 yrs ago. History of Any Multi-Drug Resistant Organisms: None Reported Past Surgical History: Unable to Obtain Past Anesthesia/Blood Transfusion Reactions: Unable to Obtain Past Psychological History: Bipolar, Schizophrenia Smoking Status: Former smoker Past Alcohol Use History: None Reported Past Drug Use History: None Reported
[2024-05-05 08:27] VITALS: BP 122/69; TEMP 97.5
[2024-05-05] MEDS: ERGOCALCIFEROL 1,250 MCG (50,000 IU) CAPSULE PO SCH (08:31)
[2024-05-05 08:47] VITALS: PULSE 88; RESP 18
--- NOTE | 2024-05-05 13:54 | P.PN ---
Subjective Progress Note Date: 05/05/24 Patient is a 73-year-old male with past medical history significant for COPD, developmental delay, bipolar/schizophrenia, hypothyroidism, hypertension, hyperlipidemia. Patient's is a very poor historian, I am unsure of his baseline mentation. He has reportedly has a developmental delay and lives at an adult foster care facility. I am told that the patient was sent in for a witnessed aspiration on medication. He was in respiratory distress on arrival. He was placed on BiPAP in the ED. Initial chest x-ray does not show any focal infiltrates or evidence of aspiration pneumonitis. He did have a high fever of unknown origin. Pancultures are pending. Patient was placed empirically on antibiotics. CBC remarkable for leukocytosis. WBC count 16.1. Tmax 101.6 F. Tachycardic. Tachypneic on arrival. Meeting SIRS criteria. CMP on arrival: Sodium 135, potassium 4.1, chloride 97, serum bicarb 32, BUN 11, creatinine 0.87, glucose 126. Troponin is less than 0.012. NT proBNP 53. . Patient is cur rently being evaluated emergency department, room 5. He is on BiPAP with settings 10/5 FiO2 60%. Breathing in the mid 20s, achieving tidal volumes around 400. He is alert. I did trial the patient off BiPAP and placed him on 6 L nasal cannula. Currently, patient is resting comfortably on 6 L/min nasal cannula, in no respiratory distress in bedside recliner. Viral screen negative for influenza, RSV, COVID. Current vitals: Temperature 100.7 F, heart rate 110 bpm, blood pressure 112/64 mmHg, SpO2 96% on 6 L/min nasal cannula, nontachypneic. He is being admitted for sepsis, unknown origin. The patient is seen today May 03, 2024 in follow-up in the emergency department. Awake and alert in no acute distress. He is maintaining good O2 saturations in the 90s on 2 L/min per nasal cannula. This is his home rate as well. He did utilize BiPAP last night 10/5 and 60% FiO2. His viral screen was negative. Legionella screen negative. He has been afebrile. Hemodynamically stable. Chest x-ray shows no acute pulmonary process. Procalcitonin is pending. He is currently on Rocephin and Flagyl. He is continued on DuoNeb ventilations, Symbicort, Solu-Medrol. Receiving normal saline at 130 mL/h. He is currently sitting up in a chair having breakfast. Denies any worsening shortness of breath, cough or congestion. The patient is seen today May 04, 2024 in follow-up on the regular medical floor. He is currently sitting up in bed. Awake and alert in no acute distress. States he is breathing better today compared to yesterday. Not quite back to his baseline. He is continued on Symbicort, DuoNeb and elations, Solu- Medrol. Lovenox for DVT prophylaxis. Blood cultures revealed no growth. Procalcitonin was negative at 0.35. He is maintaining good O2 saturations in the mid 90s on 2 L/min per nasal cannula. He has been afebrile. Hemodynamically stable. The patient is seen today May 05, 2024 in follow-up on the regular medical floor. He is currently sitting up having breakfast. Awake and alert in no acute distress. Denies any worsening shortness of breath, cough or congestion. He is maintaining good O2 saturation in the 90s on 2 L/min per nasal cannula. No IV fluids. No new labs. He is continued on DuoNeb inhalations, Symbicort, prednisone taper. Lovenox for DVT prophylaxis. Objective - Vital Signs Vital signs: Vital Signs Temp 97.5 F L 05/05/24 07:26 Pulse 88 05/05/24 08:58 Resp 18 05/05/24 08:58 BP 122/69 05/05/24 07:26 Pulse Ox 99 05/05/24 08:44 FiO2 60 05/01/24 22:55 Intake & Output 05/04/24 05/05/24 05/05/24 18:59 06:59 18:59 Intake Total 540 Balance 540 Intake: Oral 540 Other: Voiding Method Toilet Toilet Toilet # Voids 1 3 1 # Bowel Movements 1 - Exam GENERAL EXAM: Alert, pleasant 73-year-old obese male, on 2 L/min nasal cannula, in no apparent distress. HEAD: Normocephalic and atraumatic EYES: Normal reaction of pupils, equal size. NOSE: Clear with pink turbinates. THROAT: No erythema or exudates. NECK: No masses, no JVD. CHEST: No chest wall deformity. LUNGS: Equal air entry with minimal bibasilar inspiratory crackles. No wheezing, rhonchi, or focal dullness. No conversational dyspnea. CVS: S1 and S2 normal with no audible murmur, regular rhythm. No extra heart sounds. ABDOMEN: No hepatosplenomegaly, active bowel sounds, no guarding or rigidity. SPINE: No scoliosis or deformity SKIN: No rashes CENTRAL NERVOUS SYSTEM: No focal deficits, tone is normal in all 4 extremities. EXTREMITIES: There is mild 1+ pitting edema bilaterally. No clubbing or cyanosis. Peripheral pulses are intact. - Labs CBC & Chem 7: 05/01/24 22:40 05/01/24 22:40 Labs: Microbiology - Last 24 Hours (Table) 05/01/24 23:38 Blood Culture - Preliminary Blood Assessment and Plan Assessment: Acute febrile illness and sepsis, under investigation, improved. Procalcitonin was negative at 0.35. Antibiotics discontinued Possibly witnessed aspiration event at [facility] home Acute hypoxemic respiratory failure, possibly secondary to above, chest x-ray does not show any focal infiltrates or evidence of aspiration pneumonitis Acute leukocytosis Lactic acidemia, improved Chronic obstructive pulmonary disease, appears stable History of hypertension History of hyperlipidemia History of developmental delay History of seizure disorder History of schizophrenia and bipolar disorder Plan: The patient was seen and evaluated Medications reviewed Currently on 2 L nasal cannula Cleared for discharge Continue his home oxygen, pulmonary medications Complete a prednisone taper Follow-up with his visiting physician within 1 week This patient was seen independently by the pulmonary nurse practitioner addressing pulmonary issues I have personally seen and examined the patient, performed the documentation and the assessment and plan as written. Number of minutes spent on the visit: 23 Dictation was produced using [employer] dictation software. Please excuse any grammatical, word or spelling errors.
--- NOTE | 2024-05-06 14:05 | P.DS ---
Providers Date of admission: 05/02/24 01:09 Expected date of discharge: 05/05/24 Attending physician: Devin Leon Consults: 05/02/24 01:07 Consult Physician Routine Consulting Provider: Moses Solis Consult Reason/Comments: Acute hypoxic respiratory failure, COPD Do you want consulting provider notified?: Yes Primary care physician: [facility] Course: Chief Complaint: Short of breath Pleasant 73-year-old patient, resident of a residential. Limited historian. Can only answer simple questions. Known history of COPD, schizophrenia bipolar, hypercholesteremia, hypothyroid, essential hypertension. Has a public guardian. Not a good historian. Now presents with increasing shortness of breath. Cough. Fever on presentation.. After questioning does state that he does smoke. And cigarettes are bought by the [employer] staff. Appetite is fair. Overnight patient required BiPAP. May 03: Overflowing the ER. Breathing better. Down to 2 L nasal cannula. Oral intake good. Some cough.No fever no chills May 04: Breathing better. Still coughing. Oral intake good. Requesting to be here 1 more day. Will be switched over to oral prednisone. May 05: Much improved. Tolerating diet. DC on prednisone taper. Follow- up with visiting physicians.. Social history: [employer]. Has a legal guardian . smokes a pack a day. Physical examination: VITAL SIGNS: T7.5, 88, 18, 122 x 69, 99% on 2 L GENERAL: Doing up, comfortable EYES: Pupils equal. Conjunctiva von l. HEENT: External appearance of nose and ears normal, oral cavity grossly normal. NECK: JVD not raised; masses not palpable. HEART: First and second heart sounds are normal; significant edema. LUNGS: Respiratory rate normal, diminished breath sound ABDOMEN: Soft, distended, nontender, liver spleen not palpable, no masses palpable. PSYCH: Able to answer simple questions MUSCULOSKELETAL:No Clubbing/cyanosis;muscles-grossly intact INVESTIGATIONS, reviewed in the clinical context: May 03: Procalcitonin 0.35 May 01: White count 16.1 hemoglobin 14.5 platelets 250 sodium 135 potassium 4.1 creatinine 0.87 Lactic acid 4.0, 1.6 Influenza type A, type B, RSV, COVID-19: Not detected EKG tracing personally reviewed by me-normal sinus rhythm. Chest x-ray film personally reviewed by me-possible right basilar infiltrate Assessment and plan: -Right basal pneumonia suspect gram-negative organism. Causing hypoxia.: Improved Ceftriaxone. Zithromax.-No further antibiotics -Sepsis, secondary to pneumonia: Improved IV antibiotics -Acute COPD exacerbation in a current smoker:: Improving DuoNeb 4 times daily Symbicort.. IV Solu-Medrol changed over to oral prednisone Pulmonary following Discharged on Breo Ellipta and albuterol as needed -Acute hypoxic respiratory failure from COPD exacerbation pneumonia:: Improving BiPAP on presentation. Down to 2 L -Schizophrenia and bipolar Xanax. Seroquel. Zoloft -Hypercholesteremia Crestor -Hypothyroid Synthroid -Essential hypertension Lopressor. Chlorthalidone -Full code -Public guardian. Siri Rodriguez. [phone] Disposition: shelter Past Medical History Past Medical History: Coronary Artery Disease (CAD), COPD, Dementia, GERD/Reflux, Hyperlipidemia, Hypertension, Seizure Disorder Additional Past Medical History / Comment(s): Mental delay, last seizure greater than 6 yrs ago. History of Any Multi-Drug Resistant Organisms: None Reported Past Surgical History: Unable to Obtain Past Anesthesia/Blood Transfusion Reactions: Unable to Obtain Past Psychological History: Bipolar, Schizophrenia Smoking Status: Former smoker Past Alcohol Use History: None Reported Past Drug Use History: None Reported Plan - Discharge Summary Discharge Rx Participant: No New Discharge Prescriptions: New predniSONE 10 mg PO DAILY #30 tab Albuterol Sulfate [Albuterol Sulfate Hfa] 1 puff PO Q4-6H #8.5 gm Continue Ergocalciferol [Vitamin D2 (1250 Mcg = 61824 Iu)] 1,250 mcg PO FR@0800 Cyanocobalamin (Vitamin B-12) [Vitamin B-12] 1,000 mcg PO DAILY@0800 Sertraline [Zoloft] 25 mg PO DAILY@0800 LORazepam [Ativan] 1 mg PO TID PRN PRN Reason: Anxiety Folic Acid 1 mg PO DAILY@0800 ALPRAZolam [Xanax] 1 mg PO BID@0800,1999 levETIRAcetam [Keppra] 250 mg PO Q12HR@0800,1999 Silver Sulfadiazine [Silver Sulfadiazine 1%] 1 applic TOPICAL DAILY Sertraline [Zoloft] 50 mg PO DAILY@0800 Rosuvastatin Calcium [Crestor] 5 mg PO HS@1999 Levothyroxine Sodium [Synthroid] 25 mcg PO AC-BRKFST@0600 Betamethasone Valerate [Luxiq 0.1%] 1 applic TOPICAL BID PRN PRN Reason: Skin Irritation Metoprolol Tartrate [Lopressor] 25 mg PO BID@08,1999 QUEtiapine [SEROquel] 600 mg PO HS@1999 QUEtiapine [SEROquel] 100 mg PO DAILY@0800 QUEtiapine FUMARATE [SEROquel] 200 mg PO DAILY@1200 Spironolactone [Aldactone] 50 mg PO DAILY@0800 Ascorbic Acid [Vitamin C with Jade Hips] 1,000 mg PO DAILY@0800 Fluticasone/Vilanterol [Breo Ellipta 100-25 Mcg Inhalr] 1 puff INHALATION RT- DAILY Discontinued Chlorthalidone 100 mg PO DAILY@0800 Potassium Chloride ER [K-Dur 20] 20 meq PO TID@0800,1400,1999 Discharge Medication List ALPRAZolam [Xanax] 1 mg PO BID@08,199909/10/21 [History] Cyanocobalamin (Vitamin B-12) [Vitamin B-12] 1,000 mcg PO DAILY@0800 09/10/21 [History] Ergocalciferol [Vitamin D2 (1250 Mcg = 55115 Iu)] 1,250 mcg PO FR@0809/10/21 [History] Folic Acid 1 mg PO DAILY@0800 09/10/21 [History] LORazepam [Ativan] 1 mg PO TID PRN 09/10/21 [History] Rosuvastatin Calcium [Crestor] 5 mg PO HS@199909/10/21 [History] Sertraline [Zoloft] 25 mg PO DAILY@0800 09/10/21 [History] Sertraline [Zoloft] 50 mg PO DAILY@0809/10/21 [History] Betamethasone Valerate [Luxiq 0.1%] 1 applic TOPICAL BID PRN 03/07/24 [History] Levothyroxine Sodium [Synthroid] 25 mcg PO AC-BRKFST@0600 03/07/24 [History] Metoprolol Tartrate [Lopressor] 25 mg PO BID@08,199903/07/24 [History] QUEtiapine FUMARATE [SEROquel] 200 mg PO DAILY@1200 03/07/24 [History] QUEtiapine [SEROquel] 100 mg PO DAILY@0800 03/07/24 [History] QUEtiapine [SEROquel] 600 mg PO HS@199903/07/24 [History] Spironolactone [Aldactone] 50 mg PO DAILY@0800 03/07/24 [History] levETIRAcetam [Keppra] 250 mg PO Q12HR@08,199903/07/24 [History] Ascorbic Acid [Vitamin C with Jade Hips] 1,000 mg PO DAILY@0800 03/27/24 [Hi story] Silver Sulfadiazine [Silver Sulfadiazine 1%] 1 applic TOPICAL DAILY 03/27/24 [History] Fluticasone/Vilanterol [Breo Ellipta 100-25 Mcg Inhalr] 1 puff INHALATION RT- DAILY 05/02/24 [History] Albuterol Sulfate [Albuterol Sulfate Hfa] 1 puff PO Q4-6H #8.5 gm 05/05/24 [Rx] predniSONE 10 mg PO DAILY #30 tab 05/05/24 [Rx] Follow up Appointment(s)/Referral(s): Job Wiseman MD [Primary Care Provider] - 1-2 days Patient Instructions/Handouts: COPD (Chronic Obstructive Pulmonary Disease) (DC), Pneumonia (DC) Discharge Disposition: HOME WITH HOME HEALTH SERVICES
== END 2024-05-05 11:29 | disposition home health service (06) | DRG 871 ==
LOC: EC 20:56 → 3SCARD 05-02 01:09 → 5NMEDONC 05-03 13:42
PROVIDERS: ADMIT Hospitalist; ATTEND Hospitalist
PROC: 5A09457 Assistance with Respiratory Ventilation, 24-96 Consecutive Hours, Continuous Positive Airway Pressure (ICD-10-PCS; principal; 2024-05-02)
DX: A41.9 Sepsis, unspecified organism (principal); J15.69 Pneumonia due to other Gram-negative bacteria; J96.01 Acute respiratory failure with hypoxia; J44.0 Chronic obstructive pulmonary disease with (acute) lower respiratory infection; F03.93 Unspecified dementia, unspecified severity, with mood disturbance; E87.20 Acidosis, unspecified; J44.1 Chronic obstructive pulmonary disease with (acute) exacerbation; F20.9 Schizophrenia, unspecified; F31.9 Bipolar disorder, unspecified; E03.9 Hypothyroidism, unspecified; E78.00 Pure hypercholesterolemia, unspecified; I10 Essential (primary) hypertension; I25.10 Atherosclerotic heart disease of native coronary artery without angina pectoris; G40.909 Epilepsy, unspecified, not intractable, without status epilepticus; K21.9 Gastro-esophageal reflux disease without esophagitis; Z79.890 Hormone replacement therapy; Z87.891 Personal history of nicotine dependence; Z79.51 Long term (current) use of inhaled steroids
CPT/HCPCS: 36415; 71045; 80053; 81003; 83605; 83735; 83880; 84145; 84484; 85025; 85610; 85730; 87040; 87449; 87636; 93005; 94640; 94660; 94760; 96361; 96365; 96366; 96367; 96375; 96376; 99291